=== PATIENT | male | born 1940 | race Hispanic/Latino ===

== ENCOUNTER 2017-12-31 10:21 | Inpatient (IN) | payer MEDICARE ==
--- NOTE | 2017-12-31 11:13 | ED PDOC ---
Arrival/HPI - General Chief Complaint: GI Problem Time Seen by Provider: 12/31/17 10:40 Historian: Patient - History of Present Illness Narrative History of Present Illness (Text): 12/31/17 11:09 A 77 year old male, whose past medical history includes hypertension, hyperlipidemia, peripheral vascular disease, liver cancer and back tumor, presents to the emergency department complaining of black stool today. Patient reports generalized weakness and lightheadedness. Patient notes lower back pain due to tumor, but denies any fever, chills, nausea, vomiting, abdominal pain, chest pain, shortness of breath or any other complaints. PMD: Dr. Karolina Evans Time/Duration: Other (today) Symptom Course: Unchanged Context: Home Past Medical History - Provider Review Nursing Documentation Reviewed: Yes - Infectious Disease Hx of Infectious Diseases: None - Cardiac Hx Pacemaker: No - Pulmonary Hx Respiratory Disorders: No - Neurological Hx Paralysis: No - HEENT Hx HEENT Disorder: Yes Hx Cataracts: Yes (r eye sx, sched left eye for next month) Other/Comment: wears eyeglasses for reading - Renal Hx Renal Disorder: No - Endocrine/Metabolic Hx Diabetes Mellitus Type 2: Yes - Hematological/Oncological Hx Blood Transfusions: No Hx Blood Transfusion Reaction: No - Integumentary Hx Dermatological Disorder: No Other/Comment: ca of liver - Musculoskeletal/Rheumatological Hx Musculoskeletal Disorders: No - Gastrointestinal Hx Gastrointestinal Disorders: No Other/Comment: Liver CA - Genitourinary/Gynecological Hx Genitourinary Disorders: No - Psychiatric Hx Emotional Abuse: No Hx Physical Abuse: No Hx Substance Use: No - Surgical History Other/Comment: Liver lobectomy - Anesthesia Hx Anesthesia Reactions: No Hx Malignant Hyperthermia: No - Suicidal Assessment Feels Threatened In Home Enviroment: No Family/Social History - Physician Review Nursing Documentation Reviewed: Yes Family/Social History: No Known Family HX Smoking Status: Former Smoker Hx Alcohol Use: Yes (QUIT 1 YR AGO) Hx Substance Use: No Allergies/Home Meds Allergies/Adverse Reactions: Allergies amoxicillin Adverse Reaction (Verified 08/06/16 10:26) VOMITING Home Medications: Home Meds Medication Instructions Recorded Confirmed amLODIPine [Norvasc] 10 mg PO DAILY 08/27/15 12/31/17 Hydrochlorothiazide [HCTZ] 25 mg PO DAILY 09/22/15 12/31/17 Irbesartan [Avapro] 300 mg PO DAILY 09/22/15 12/31/17 Alprazolam [Xanax] 0.5 mg PO HS 08/01/16 12/31/17 Aspirin [Aspirin Chewable] 81 mg PO DAILY 08/01/16 12/31/17 Folic Acid 1 mg PO DAILY 08/01/16 12/31/17 Glimepiride [amaRYL] 2 mg PO BID 08/01/16 12/31/17 Metoprolol Tartrate [Lopressor] 50 mg PO BID 08/01/16 12/31/17 Review of Systems - Physician Review All systems were reviewed & negative as marked: Yes - Review of Systems Constitutional: absent: Fevers, Night Sweats Respiratory: absent: SOB Cardiovascular: absent: Chest Pain Gastrointestinal: Hematochezia (black stool). absent: Abdominal Pain, Nausea, Vomiting Musculoskeletal: Back Pain (due to tumor) Physical Exam Vital Signs Reviewed: Yes Vital Signs Temp Pulse Resp BP Pulse Ox 12/31/17 14:55 98 F 72 18 152/92 H 12/31/17 14:38 98 F 76 18 153/61 H 12/31/17 12:30 75 18 151/72 H 97 12/31/17 11:20 72 16 148/83 98 12/31/17 10:40 98 F 72 18 141/83 99 Temperature: Afebrile Blood Pressure: Normal Pulse: Regular Respiratory Rate: Normal Appearance: Positive for: Well-Appearing, Non-Toxic, Comfortable Pain Distress: None Mental Status: Positive for: Alert and Oriented X 3 - Systems Exam Head: Present: Atraumatic, Normocephalic Pupils: Present: PERRL Extroacular Muscles: Present: EOMI Conjunctiva: Present: Other (Pale) Mouth: Present: Moist Mucous Membranes Neck: Present: Normal Range of Motion Respiratory/Chest: Present: Clear to Auscultation, Good Air Exchange. No: Respiratory Distress, Accessory Muscle Use Cardiovascular: Present: Regular Rate and Rhythm, Normal S1, S2. No: Murmurs Abdomen: No: Tenderness, Distention, Peritoneal Signs Rectal: Present: Occult Blood (guaiac ), Gross Blood, Normal Rectal Tone. No: Rectal Tenderness, Hemorrhoids, Fissures, Nodule/Mass/Lesions Upper Extremity: Present: Normal Inspection, NORMAL PULSES. No: Cyanosis, Edema Lower Extremity: Present: Normal Inspection, NORMAL PULSES. No: Edema, CALF TENDERNESS Neurological: Present: GCS=15, CN II-XII Intact, Speech Normal Skin: Present: Warm, Dry, Pale. No: Rashes Psychiatric: Present: Alert, Oriented x 3, Normal Insight, Normal Concentration Medical Decision Making ED Course and Treatment: 12/31/17 11:09 Impression: A 77 year old male with bloody stool Differential Diagnosis included but are not limited to: GI bleed Plan: -- Chest xray -- EKG -- Labs -- Protonix -- Reassess and disposition Progress Notes: Report Date : 12/31/2017 11:55:28 Procedure: Chest xray Dictator : Tae Gutierrez MD IMPRESSION: No active disease. EKG shows NSR at [address]-segment elevations, normal intervals, normal axis. Interpreted by me. 12/31/17 12:17 Hgb low at 6.3. Type and Crossmatched. 2 units of PRBCs ordered. Consent obtained by me with Resident Roly Clarke. Vitals stable throughput ED stay. Case was discussed with Dr. Ornelas who will admit to Telemetry for active GI Bleed. She requested consult with Dr. Noel/Alfredo. Dr. Noel had a previous consult so consult order was placed. Case was discussed with GI Fellow who came to evaluate patient. - Critical Care Critical Care Minutes: 45 minutes - Lab Interpretations Lab Results: 12/31/17 11:40 12/31/17 11:40 Lab Results 12/31/17 11:40: Blood Type B NEGATIVE, Antibody Screen Negative, Crossmatch See Detail, BBK History Checked Patient has bt 12/31/17 11:40: Sodium 143, Potassium 4.8, Chloride 106, Carbon Dioxide 21, Anion Gap 20, BUN 55 H, Creatinine 3.3 H, Est GFR ( Amer) 22, Est GFR ( Non-Af Amer) 18, Random Glucose 94, Calcium 9.4, Total Bilirubin 0.3, AST 20, ALT 25, Alkaline Phosphatase 66, Lactate Dehydrogenase 401, Total Creatine Kinase 58, Troponin I 0.02 D, Total Protein 6.7, Albumin 4.0, Globulin 2.7, Albumin/Globulin Ratio 1.4, Amylase 83, Lipase 244 12/31/17 11:40: PT 13.4 H, INR 1.16 H, APTT 32.7 12/31/17 11:40: WBC 9.2, RBC 2.19 L, Hgb 6.3 L*, Hct 18.7 L*, MCV 85.4, MCH 28.8 , MCHC 33.7, RDW 16.5 H, Plt Count 116 L, MPV 12.2 H, Gran % 68.7 H, Lymph % ( Auto) 15.0 L, Hernando % (Auto) 13.5 H, Eos % (Auto) 2.5, Baso % (Auto) 0.3, Gran # 6.29, Lymph # (Auto) 1.4, Hernando # (Auto) 1.2 H, Eos # (Auto) 0.2, Baso # (Auto) 0.03 - RAD Interpretation Radiology Orders: 12/31/17 11:27 CHEST PORTABLE [RAD] Stat - Medication Orders Current Medication Orders: Ondansetron HCl (Zofran Inj) 4 mg IVP Q4H PRN PRN Reason: Nausea/Vomiting Discontinued Medications Pantoprazole Sodium (Protonix Inj) 80 mg IVP STAT STA Stop: 12/31/17 11:28 Last Admin: 12/31/17 11:51 Dose: 80 mg IVP Administration Document 12/31/17 11:51 LUTHER (Rec: 12/31/17 11:51 LUTHER [id number]) Charges for Administration # of IVP Administrations 1 - Scribe Statement The provider has reviewed the documentation as recorded by the Aditi Hendrix Provider Scribe Attestation: All medical record entries made by the Scribwilbert were at my direction and personally dictated by me. I have reviewed the chart and agree that the record accurately reflects my personal performance of the history, physical exam, medical decision making, and the department course for this patient. I have also personally directed, reviewed, and agree with the discharge instructions and disposition. Disposition/Present on Arrival - Present on Arrival Any Indicators Present on Arrival: No History of DVT/PE: No History of Uncontrolled Diabetes: No Urinary Catheter: No History of Decub. Ulcer: No History Surgical Site Infection Following: None - Disposition Have Diagnosis and Disposition been Completed?: Yes Diagnosis: GI bleed Disposition: HOSPITALIZED Disposition Time: 12:17 Patient Plan: Admission Condition: GUARDED
[2017-12-31 11:57] LABS: BASO # 0.03 K/mm3 (0.0-2.0); BASO % 0.3 % (0.0-3.0); EOS # 0.2 (0.0-0.7); EOS % 2.5 % (1.5-5.0); GRAN # 6.29 (1.4-6.5); GRAN % 68.7 % (50.0-68.0); LYMPH # 1.4 (1.2-3.4); MEAN CELL VOLUME 85.4 fl (80.0-105.0); MEAN CORPUSCULAR HEMOGLOBIN 28.8 pg (25.0-35.0); MEAN CORPUSCULAR HGB CONC 33.7 g/dl (31.0-37.0); MEAN PLATELET VOLUME 12.2 fl (7.0-11.0); MONO # 1.2 (0.1-0.6); MONO % 13.5 % (1.0-6.0); RBC 2.19 10^6/uL (3.5-6.1); RED CELL DISTRIBUTION WIDTH 16.5 % (11.5-14.5); WHITE BLOOD COUNT 9.2 10^3/ul (4.5-11.0)
--- NOTE | 2017-12-31 11:57 | RAD ---
HISTORY: gi bleed COMPARISON: 08/27/2015 FINDINGS: LUNGS: No active pulmonary disease. PLEURA: No significant pleural effusion identified, no pneumothorax apparent. CARDIOVASCULAR: Normal. OSSEOUS STRUCTURES: No significant abnormalities. VISUALIZED UPPER ABDOMEN: Normal. OTHER FINDINGS: None. IMPRESSION: No active disease.
[2017-12-31 12:03] LABS: HEMOGLOBIN 6.3 g/dL (14.0-18.0)
[2017-12-31 12:06] LABS: ALB/GLOB RATIO 1.4 (1.1-1.8); CALCIUM 9.4 mg/dL (8.4-10.5)
[2017-12-31 12:15] LABS: INR 1.16 (0.93-1.08); PARTIAL THROMBOPLASTIN TIME 32.7 Seconds (25.1-36.5); PROTHROMBIN TIME 13.4 SECONDS (9.4-12.5)
[2017-12-31 12:18] LABS: TROPONIN I 0.02 ng/mL
--- NOTE | 2017-12-31 15:59 | CP.PCM.CON ---
<Ariana Evans - Last Filed: 12/31/17 16:07> History of Present Illness - History of Present Illness History of Present Illness: PGY4 Initial GI Consult Cristopher Muñoz is a 77M w/ hx of Hepatocellular carcinoma?,HTN, HL, and DM who presents to the ER with complaints of black stool today. Patient reports generalized weakness and lightheadedness. Pt states that he first noticed the black stool 3 days ago. He denies any epigastric pain, BRBPR, hematemesis or [id number] emesis. In the ED, he was found to have a hgb of 6.3 with normal vitals. He denies any nausea, vomiting, diarrhea, NSAID use. He has been off of plavix for 3 years. he had a colonoscopy and EGD in 2014 which revealed poor prep and no other finding indicative for his presenting melana (at that time). In 2013, he reports a colonoscopy by Dr. Lrasen which revealed multiple polyps. He had another repeat colonoscopy last year, by Dr. Larsen and as per pt was negative. PMhx: HCC?, HTN, HL, DM, spinal tumor? PSHx: Social history: smokes 1/4 PPD cigarettes, social ETOH use Family history: non-contributory ROS: 12 point ROS conducted, neg other than above Past Patient History - Infectious Disease Hx of Infectious Diseases: None - Past Medical History & Family History Past Medical History?: Yes - Past Social History Smoking Status: Former Smoker - CARDIAC Hx Pacemaker: No - PULMONARY Hx Respiratory Disorders: No - NEUROLOGICAL Hx Paralysis: No - HEENT Hx HEENT Problems: Yes Hx Cataracts: Yes (r eye sx, sched left eye for next month) Other/Comment: wears eyeglasses for reading - RENAL Hx Chronic Kidney Disease: No - ENDOCRINE/METABOLIC Hx Diabetes Mellitus Type 2: Yes - HEMATOLOGICAL/ONCOLOGICAL Hx Blood Transfusions: No Hx Blood Transfusion Reaction: No - INTEGUMENTARY Hx Dermatological Problems: No Other/Comment: ca of liver - MUSCULOSKELETAL/RHEUMATOLOGICAL Hx Musculoskeletal Disorders: No - GASTROINTESTINAL Hx Gastrointestinal Disorders: No Other/Comment: Liver CA - GENITOURINARY/GYNECOLOGICAL Hx Genitourinary Disorders: No - PSYCHIATRIC Hx Emotional Abuse: No Hx Physical Abuse: No Hx Substance Use: No - SURGICAL HISTORY Other/Comment: Liver lobectomy - ANESTHESIA Hx Anesthesia Reactions: No Hx Malignant Hyperthermia: No Meds Allergies/Adverse Reactions: Allergies Allergy/AdvReac Type Severity Reaction Status Date / Time amoxicillin AdvReac VOMITING Verified 12/31/17 17:29 - Medications Medications: Current Medications Ondansetron HCl (Zofran Inj) 4 mg IVP Q4H PRN PRN Reason: Nausea/Vomiting Physical Exam - Constitutional Appears: Well, No Acute Distress - Head Exam Head Exam: ATRAUMATIC, NORMOCEPHALIC - Eye Exam Eye Exam: Normal appearance - ENT Exam ENT Exam: Mucous Membranes Moist, Normal Exam - Neck Exam Neck exam: Positive for: Normal Inspection - Respiratory Exam Respiratory Exam: Clear to Auscultation Bilateral, NORMAL BREATHING PATTERN. absent: Rales, Rhonchi, Wheezes, Respiratory Distress - Cardiovascular Exam Cardiovascular Exam: REGULAR RHYTHM, +S1, +S2 - GI/Abdominal Exam GI & Abdominal Exam: Normal Bowel Sounds, Soft. absent: Diminished Bowel Sounds , Distended, Guarding, Organomegaly, Pulsatile Mass, Rebound, Rigid - Rectal Exam Rectal Exam: Black Stool. absent: Bloody Stool, Fecal Impaction - Extremities Exam Extremities exam: Negative for: joint swelling, pedal edema - Neurological Exam Neurological exam: Alert, Oriented x3 - Psychiatric Exam Psychiatric exam: Normal Affect, Normal Mood - Skin Skin Exam: Dry, Intact, Normal Color, Warm Results - Vital Signs Recent Vital Signs: Last Vital Signs Temp 98.2 F 12/31/17 15:14 Pulse 78 12/31/17 15:14 Resp 18 12/31/17 15:14 BP 164/68 H 12/31/17 15:14 Pulse Ox 98 12/31/17 15:14 - Labs Result Diagrams: 12/31/17 11:40 12/31/17 11:40 <Blake Fuentes - Last Filed: 12/31/17 21:26> Meds - Medications Medications: Current Medications Ondansetron HCl (Zofran Inj) 4 mg IVP Q4H PRN PRN Reason: Nausea/Vomiting Pantoprazole Sodium (Protonix Inj) 40 mg IVP Q12 [facility] Results - Vital Signs Recent Vital Signs: Last Vital Signs Temp 98.2 F 12/31/17 18:00 Pulse 73 12/31/17 18:00 Resp 16 12/31/17 18:00 BP 157/71 H 12/31/17 18:00 Pulse Ox 98 12/31/17 15:14 - Labs Result Diagrams: 12/31/17 11:40 12/31/17 11:40 Assessment & Plan - Assessment and Plan (Free Text) Assessment: 77 year old male with h/o HCC s/p resection, 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 1. Upper GI bleeding Plan: -ddx includes PUD, varices, avm, malignancy -recommend IV PPI -denies h/o cirrhosis -request outside records -clear liquids today -npo after mn for egd tomorrow -nephrology consult - Date & Time Date: 12/31/17 Time: 21:26
[2017-12-31 22:53] VITALS: BMI 34.8
[2017-12-31] MEDS ORDERED: Pneumococcal 23-Valent Vaccine IM ONE (22:53)
[2018-01-01 01:17] LABS: URINE BILIRUBIN NEGATIVE (NEGATIVE); URINE BLOOD TRACE-INTACT (NEGATIVE); URINE GLUCOSE (UA) NEGATIVE (NEGATIVE); URINE LEUKOCYTE ESTERASE NEGATIVE Leu/uL (NEGATIVE); URINE PROTEIN 30 mg/dL (<30 mg/dL); URINE UROBILINOGEN 0.2 E.U./dL (<1 E.U./dL)
[2018-01-01 01:20] LABS: URINE APPEARANCE SL CLOUDY (CLEAR); URINE COLOR YELLOW (YELLOW)
[2018-01-01 01:30] LABS: CREATININE,RANDOM URINE 33 mg/dL; TOTAL PROTEIN,RANDOM URINE 156 mg/L
[2018-01-01 01:52] LABS: URINE RBC 0 - 2 /hpf (0-2); URINE WBC NEGATIVE /hpf (0-6)
[2018-01-01 01:53] LABS: URINE BACTERIA MOD (NEG)
[2018-01-01] MEDS: Insulin Reg-LOW-Coverage SC SCH ×2 (08:17→11:36)
[2018-01-01 08:25] LABS: MEAN CELL VOLUME 85.6 fl (80.0-105.0); MEAN CORPUSCULAR HEMOGLOBIN 28.8 pg (25.0-35.0); MEAN CORPUSCULAR HGB CONC 33.6 g/dl (31.0-37.0); MEAN PLATELET VOLUME 10.9 fl (7.0-11.0); RBC 2.78 10^6/uL (3.5-6.1); RED CELL DISTRIBUTION WIDTH 15.4 % (11.5-14.5); WHITE BLOOD COUNT 8.8 10^3/ul (4.5-11.0)
[2018-01-01 08:31] LABS: ALB/GLOB RATIO 1.5 (1.1-1.8); ALT/SGPT 25 U/L (7-56); AST/SGOT 21 U/L (17-59); BILIRUBIN,DIRECT 0.3 mg/dL (0.0-0.4); BLOOD UREA NITROGEN 50 mg/dL (7-21); CALCIUM 9.7 mg/dL (8.4-10.5); GFR AFRICAN-AMERICAN 22; GFR NON-AFRICAN AMERICAN 18; HDL CHOLESTEROL 26 mg/dL (29-60); IRON 64 ug/dL (45-180)
[2018-01-01 08:41] LABS: % IRON SATURATION 18 % (20-55); TOTAL IRON BINDING CAPACITY 347 ug/dL (261-462)
[2018-01-01 08:47] LABS: LDL CHOLESTEROL < 30 mg/dL (0-129)
--- NOTE | 2018-01-01 09:44 | HP ---
CHIEF COMPLAINT: Lower GI bleeding. HISTORY OF PRESENT ILLNESS: Mr. Cristopher Muñoz is a 77-year-old male with a past medical history who had hypertension, hypercholesterolemia, peripheral vascular disease, liver cancer and back tumor, came to the Emergency Department complaining of black stools with back pain and tumor. He also denied any fever, chills. No nausea or vomiting. No abdominal pain. No chest pain. No shortness of breath. PAST MEDICAL HISTORY: As above, right eye surgery, diabetes mellitus, CA of the liver, liver lobectomy. FAMILY HISTORY: Father and mother, noncontributory. No known family history. HABITS: Former smoker. Alcohol, yes. Substance abuse, no. ALLERGIES: PATIENT IS ALLERGIC WITH AMOXICILLIN. HOME MEDICATIONS: Amlodipine, HCTZ, Avapro, Xanax, aspirin, folic acid, glimepiride, metoprolol. REVIEW OF SYSTEMS: Patient is seen and examined at the bedside. was standing on the bedside also. No nausea, vomiting or diarrhea. No hematuria or hematochezia. No swelling of the legs. No chest pain. No palpitation. No headache or dizziness. PHYSICAL EXAMINATION: VITAL SIGNS: Temperature 98, pulse 76, respiratory rate 18, blood pressure 152/61. HEENT: Head: Normocephalic, atraumatic. Eyes: PERRLA. Nose: Patent. NECK: Supple. No carotid bruit. No thyromegaly. CHEST: Bilaterally symmetrical. HEART: S1 and S2 positive. LUNGS: Clear to auscultation. ABDOMEN: Soft. Bowel sounds present. No organomegaly. EXTREMITIES: No edema. No cyanosis. NEUROLOGIC: Patient is awake, alert. Moving all 4 extremities. No focal deficits. LABORATORY DATA: White blood cell 9.2, hemoglobin 6.3, hematocrit 18.7, platelets 116. Sodium 143, potassium 4.8, BUN 55, creatinine is 3.3. ASSESSMENT AND PLAN: Mr. Cristopher Muñoz is a 77-year-old male with severe anemia, status post two units of packed red blood cells, thrombocytopenia, renal insufficiency, admitted for lower gastrointestinal bleeding, Zofran given, pantoprazole given. Gastroenterology consult called. This patient . The patient has history of hypertension, hypercholesterolemia, peripheral vascular disease, liver cancer, back tumor surgery, came complaining of black stools, severe anemia. Hemoglobin is 6.3. Patient had symptomatic anemia, type and crossed match two units of packed red blood cells and transfuse. We will do Hematology workup of monitoring H and H. Repeat labs. We will follow up. Nai Ornelas MD
--- NOTE | 2018-01-01 10:29 | CARD ---
APPROVED REPORT EKG Measurement Heart [id number] <Conclusion> Normal sinus rhythm Normal ECG
[2018-01-01 12:39] VITALS: TEMP 98.3
[2018-01-01] MEDS ORDERED: Midazolam 2 MG/2 ML VIAL ONE (13:01)
[2018-01-01] MEDS ORDERED: Propofol 10 mg/ml Inj (20 ML) ONE (13:01)
[2018-01-01] MEDS ORDERED: Etomidate 20 mg/10ml Inj IV ONE (13:02)
[2018-01-01 13:05] LABS: FOLATE > 20.0 ng/mL
[2018-01-01] MEDS ORDERED: Sodium Chloride 0.9% 1,000 ML IV SCH (13:30)
[2018-01-01 13:32] VITALS: RESP 18; O2SAT 99
[2018-01-01 13:55] VITALS: BP 146/60; PULSE 64
--- NOTE | 2018-01-01 16:24 | CP.PCM.PN ---
Subjective - Date & Time of Evaluation Date of Evaluation: 01/01/18 Time of Evaluation: 16:23 - Subjective Subjective: PGY-[address] Fuentes and Dr Ornelas CC: AMA S: Cristopher Muñoz is a 77M w/ hx of Hepatocellular carcinoma?,HTN, HL, and DM who presents to the ER with complaints of black stool today. Patient reports generalized weakness and lightheadedness. Pt states that he first noticed the black stool 3 days ago. He was found to have a hgb of 6.3 with normal vitals and received 2u pRBC. He had endoscopy today which revealed gastritis. He was recommended to have colonoscopy for further eval source of bleed. Pt wants to pursue further treatment at [facility] because it will be free to him O: VS stable AAOx3 Ambulating with stable gait A/P: AMA - He said he will f/u at [facility] and own PMD, Dr. John Evans at [address] [place] [address] - Gave pt his endoscopy report and recommendations from GI team. - GI recommended to give him protonix. I wrote a scipt of protonix to him. - Pt was told of and understand the risk of AMA and still wants to leave because [place] can provide same services for free - Return to ED if Sx worsens - Notified GI team and Dr. Ornelas Objective - Vital Signs/Intake and Output Vital Signs (last 24 hours): Temp Pulse Resp BP Pulse Ox 98.3 F 64 18 146/60 99 01/01/18 13:45 01/01/18 13:45 01/01/18 13:45 01/01/18 13:45 01/01/18 13:45 Intake and Output: 01/01/18 01/01/18 06:59 18:59 Intake Total 240 Output Total 1025 Balance -785 - Medications Medications: Current Medications Alprazolam (Xanax) 0.5 mg PO HS [facility] PRN Reason: Protocol Amlodipine Besylate (Norvasc) 10 mg PO DAILY [facility] Last Admin: 01/01/18 10:43 Dose: 10 mg Clonidine HCl (Catapres) 0.1 mg PO BID [facility] Last Admin: 01/01/18 15:39 Dose: Not Given Folic Acid (Folic Acid) 1 mg PO DAILY [facility] Last Admin: 01/01/18 10:44 Dose: 1 mg Glimepiride (Amaryl) 2 mg PO BID [facility] Last Admin: 01/01/18 10:44 Dose: Not Given Hydralazine HCl (Apresoline) 10 mg IVP Q6 PRN PRN Reason: for SBP>160 Hydrochlorothiazide (Hydrodiuril) 25 mg PO DAILY [facility] Last Admin: 01/01/18 15:39 Dose: Not Given Sodium Chloride (Sodium Chloride 0.9%) 1,000 mls @ 100 mls/hr IV .Q10H [facility] Last Admin: 01/01/18 16:21 Dose: Not Given Insulin Human Regular (Humulin R Low) 0 units SC ACHS [facility] PRN Reason: Protocol Last Admin: 01/01/18 11:36 Dose: Not Given Metoprolol Tartrate (Lopressor) 50 mg PO BID [facility] Last Admin: 01/01/18 10:42 Dose: 50 mg Ondansetron HCl (Zofran Inj) 4 mg IVP Q4H PRN PRN Reason: Nausea/Vomiting Pantoprazole Sodium (Protonix Inj) 40 mg IVP Q12 [facility] Last Admin: 01/01/18 10:43 Dose: 40 mg - Labs Labs: 01/01/18 06:00 01/01/18 08:00 PT 13.4 SECONDS (9.4-12.5) H 12/31/17 11:40 INR 1.16 (0.93-1.08) H 12/31/17 11:40 APTT 32.7 Seconds (25.1-36.5) 12/31/17 11:40
--- NOTE | 2018-01-01 18:09 | CON ---
DATE: 01/01/2018 REASON FOR CONSULTATION: Cardiac evaluation, admitted with GI bleed, preoperative evaluation and risk stratification for possible colonoscopy. BRIEF CLINICAL HISTORY: This is a 77-year-old male with past medical history significant for hypertension; peripheral vascular disease; liver cancer, status post radiation in [place], possible recurrence of the tumor in the bone, who came in with GI bleed, scheduled for colonoscopy and cardiology consult was called for preop evaluation and risk stratification. The patient denies any chest pain, shortness of breath, or any palpitation. is at the bedside. PAST MEDICAL HISTORY: Significant for diabetes and CA liver. PAST SURGICAL HISTORY: History significant for lobectomy, eye surgery, radiation to the liver. FAMILY HISTORY: Noncontributory. SOCIAL HISTORY: Denies any smoking. Denies any history of alcohol abuse. ALLERGIES: ALLERGY TO PENICILLIN AND AMOXICILLIN. CURRENT MEDICATIONS: The patient at home was taking amlodipine, hydrochlorothiazide, Avapro, Xanax, aspirin, folic acid, glimepiride, and metoprolol. REVIEW OF SYSTEMS: As per HPI. PHYSICAL EXAMINATION VITAL SIGNS: Temperature afebrile, heart rate 96, blood pressure 172/64. HEENT: PERRLA. Extraocular muscles intact. NECK: Supple. No carotid bruit. No thyromegaly. CHEST: Clear to auscultation. HEART: S1 and S2 regular. ABDOMEN: Soft. EXTREMITIES: Clubbing, cyanosis negative. LABORATORY DATA: Blood workup as follows: WBC 8.8, hemoglobin 8, hematocrit 23.8, platelet count 117. Chemistry shows sodium 140, potassium 4.2, chloride 109, bicarbonate 23, anion gap of 19, BUN 50, creatinine 3.3. 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 No evidence of angina. No evidence of acute myocardial infarction. No evidence of arrhythmia. The patient is cleared to go for colonoscopy from Cardiology point of view. We will follow closely with you. We will get echo to assess left ventricular function. Thank you, Dr. Ornelas, for providing us the opportunity in taking care of the patient, Cristopher Wanda. Feng Butterfield MD
--- NOTE | 2018-01-01 21:03 | CON ---
DATE: 01/01/2018 REFERRING PHYSICIAN: Nai Ornelas MD. REASON FOR CONSULTATION: Acute kidney injury. CHIEF COMPLAINT AND HISTORY OF PRESENT ILLNESS: This is a 77-year-old male who has come into the hospital with acute anemia secondary to blood loss. The patient has been noticing black stools. He was complaining of lightheadedness and dizziness with weakness. The patient says that he noticed these changes in his stool over the last 3 days. He does not have a known history of kidney disease. His initial creatinine when he came into the hospital was 3.3. The patient was not having any abdominal pain. He had no vomiting or emesis. The patient had been on Plavix, but has been off for many years now. He did have endoscopy done in 2014 as well as a colonoscopy done in 2013. The patient denies NSAID use. He does take medications for his hypertension and diabetes. He has no fevers or chills. No nausea. No vomiting. No dysuria or frequency. No headaches. REVIEW OF SYSTEMS: All other review of symptoms are within normal limits except what was mentioned. ALLERGIES: AMOXICILLIN. HOME MEDICATIONS: He is on irbesartan, glimepiride, aspirin, folic acid, hydrochlorothiazide, amlodipine, Xanax, metoprolol. PAST MEDICAL HISTORY: 1. Hypertension. 2. Dyslipidemia. 3. Diabetes type 2. 4. Chronic back pain. 5. Liver cancer. 6. Nasal bone fracture. 7. Colon polyps. PAST SURGICAL HISTORY: Liver lobectomy. SOCIAL HISTORY: He smokes about a quarter of a pack per day. Patient drinks socially. FAMILY HISTORY: Noncontributory. PHYSICAL EXAMINATION: VITAL SIGNS: Temperature is 98.8, pulse of 91, blood pressure is 170/70, respiration is 19, O2 saturation 98%. Height is 5 feet 11, weight is 250 pounds. BMI is 31.9. GENERAL: The patient lying in bed, uncomfortable, and in no acute distress. HEENT: Atraumatic and normocephalic. Anicteric sclerae. Moist mucosa. [place] conjunctivae. No oral lesions. NECK: No JVD, anterior and posterior adenopathy, thyromegaly, or bruits. CARDIOVASCULAR: S1 and S2 regular. No murmur, rubs, or gallop. LUNGS: Clear to auscultation bilaterally. No wheezes, rales, or rhonchi. ABDOMEN: Bowel sounds are positive. Soft, nontender and nondistended. No hepatosplenomegaly. No rebound and no guarding EXTREMITIES: No cyanosis, clubbing, or edema. NEUROLOGIC: No facial asymmetry. Tongue is midline. No uvula deviation. Power is 5/5 upper extremity and lower extremity. Sensation intact in upper extremity and lower extremity. PSYCHIATRIC: He is awake, alert and oriented x3. No anxiety or depression. He has normal affect. GENITOURINARY: No CVA tenderness. VASCULAR: 2+ pulses in the carotid pulses and pedal pulses. SKIN: No erythema or nodules SPINE: Shows normal curvature. LABORATORY DATA: Hemoglobin 6.3, repeat is 8, retic count is 1.65, INR is 1.1. He has a chemistry that shows creatinine of 3.3, repeat creatinine is 3.3. Patient has iron saturation of 18%. He has a TSH of 3. Chest x-ray done shows no active disease. EKG done shows sinus rhythm at 66, no ST-T changes. ASSESSMENT: 1. Acute anemia. 2. Iron deficiency. 3. Acute kidney injury with a baseline creatinine of 0.7. 4. Diabetes type 2. 5. Hypertension. 6. Dyslipidemia. 7. Chronic back pain. 8. Proteinuria 4.7 g PLAN: The patient is currently admitted to the hospital. He had 2 units of transfusion. The patient's hemoglobin is better. He has been seen by GI for evaluation. The patient has an increase in creatinine. Patient has a long differential. I did urine checks to check for proteinuria. The patient has 4.7 g of protein. The patient has anemia, an elevated creatinine with back pain. I have concerns about ruling the patient out for myeloma. I will add an SPEP and UPEP to the patient's blood work. We will also order a CT of the patient's back and also order serology to rule out primary versus secondary causes of proteinuria including but not limited to glomerulonephritis. He has an elevated blood pressure. We will place him on clonidine for better blood pressure control. I have discontinued his losartan as this may worsen the patient's creatinine. He will also need a renal ultrasound to evaluate his kidney function. Fernie Wei MD [facility] # [id number]
[2018-01-02 11:13] LABS: FREE KAPPA SERUM 10.2 mg/L (3.3-19.4)
[2018-01-02 18:04] LABS: ALBUMIN (PEP) 3.2 g/dL (3.8-4.8); ALPHA-1-GLOBULIN (PEP) 0.5 g/dL (0.2-0.3)
--- NOTE | 2018-01-02 20:05 | CARD ---
APPROVED REPORT EXAM: Two-dimensional and M-mode echocardiogram with Doppler and color Doppler. INDICATION Pre-Op 2D DIMENSIONS Left Atrium (2D)4.0 (1.6-4.0cm)IVSd1.5 (0.7-1.1cm) LVDd4.8 (3.9-5.9cm)PWd1.1 (0.7-1.1cm) LVDs3.2 (2.5-4.0cm)FS (%) 34.4 % LVEF (%)63.5 (>50%) M-Mode DIMENSIONS Aortic Root2.70 (2.2-3.7cm)Aortic Cusp Exc.1.90 (1.5-2.0cm) Aortic Valve AoV Peak [id number]/[place] Peak GR.9mmHg Mitral Valve E/A ratio0.0 TDI E/Lateral E'0.0E/Medial E'0.0 Tricuspid Valve TR Peak [id number] [id number] Peak Gr.29mmHg [id number] LEFT VENTRICLE The left ventricle is normal size. There is mild concentric left ventricular hypertrophy. The left ventricular function is normal.EF-65% There is normal LV segmental wall motion. Transmitral Doppler flow pattern is Grade III-reversible restrictive diastolic dysfunction. No left ventricle thrombus noted on this study. There is no ventricular septal defect visualized. There is no left ventricular aneurysm. There is no mass noted in the left ventricle. RIGHT VENTRICLE The right ventricle is normal size. There is normal right ventricular wall thickness. The right ventricular systolic function is normal. ATRIA The left atrium is borderline dilated. The right atrium size is normal. The interatrial septum is intact with no evidence for an atrial septal defect. AORTIC VALVE The aortic valve is thickened but opens well. The aortic valve is mildly to moderately sclerotic. There is trace aortic regurgitation. There is no aortic valvular stenosis. There is no aortic valvular vegetation. MITRAL VALVE The mitral valve is thickened but opens well. Mitral regurgitation is mild. There is no mitral valve stenosis. There is no evidence of mitral valve prolapse. TRICUSPID VALVE The tricuspid valve leaflets are thickened , but open well. There is mild tricuspid regurgitation.[id number] mmof hg. There is no tricuspid valve stenosis. There is no tricuspid valve prolapse or vegetation. PULMONIC VALVE The pulmonic valve is not well visualized. There is trace pulmonic valvular regurgitation. There is no pulmonic valvular stenosis. GREAT VESSELS The aortic root is normal in size. The ascending aorta is normal in size. The pulmonary artery is normal. The IVC is normal in size and collapses >50% with inspiration. PERICARDIAL EFFUSION There is no pleural effusion. There is no pericardial effusion. <Conclusion> The left ventricle is normal size. There is mild concentric left ventricular hypertrophy. The left ventricular function is normal.EF-65% There is normal LV segmental wall motion. Mitral regurgitation is mild. There is mild tricuspid regurgitation.[id number] mmof hg. The IVC is normal in size and collapses >50% with inspiration. There is no pericardial effusion.
== END 2018-01-01 17:53 | disposition left against medical advice (07) | DRG 378 ==
LOC: ED 10:21 → ERH 12:17 → 2RSO 15:36
PROVIDERS: ADMIT Internal Medicine; ATTEND Internal Medicine
PROC: 30233N1 Transfusion of Nonautologous Red Blood Cells into Peripheral Vein, Percutaneous Approach (ICD-10-PCS; principal; 2017-12-31)
PROC: 0DB68ZX Excision of Stomach, Via Natural or Artificial Opening Endoscopic, Diagnostic (ICD-10-PCS; 2018-01-01)
DX: K92.2 Gastrointestinal hemorrhage, unspecified (principal); D62 Acute posthemorrhagic anemia; N17.9 Acute kidney failure, unspecified; C79.51 Secondary malignant neoplasm of bone; E11.51 Type 2 diabetes mellitus with diabetic peripheral angiopathy without gangrene; E78.00 Pure hypercholesterolemia, unspecified; K29.70 Gastritis, unspecified, without bleeding; D69.6 Thrombocytopenia, unspecified; G89.29 Other chronic pain; E11.22 Type 2 diabetes mellitus with diabetic chronic kidney disease; N18.9 Chronic kidney disease, unspecified; M54.5 Low back pain; R80.9 Proteinuria, unspecified; I12.9 Hypertensive chronic kidney disease with stage 1 through stage 4 chronic kidney disease, or unspecified chronic kidney disease; F17.210 Nicotine dependence, cigarettes, uncomplicated; Z85.05 Personal history of malignant neoplasm of liver; Z92.3 Personal history of irradiation; Z88.0 Allergy status to penicillin; Z86.010 Personal history of colon polyps

== ENCOUNTER 2018-01-08 03:56 | Inpatient (IN) | payer MEDICARE ==
[2018-01-08] MEDS ORDERED: Albuterol-Ipratrop 3 mg / 0.5 (3 ml) UD IH STA (04:01)
--- NOTE | 2018-01-08 04:06 | ED PDOC ---
Arrival/HPI - General Time Seen by Provider: 01/08/18 03:58 Historian: Spouse, EMS - History of Present Illness Narrative History of Present Illness (Text): 01/08/18 04:06 Cristopher Muñoz is a 77 year old male, whose past medical history includes diabetes, hypertension, hyperlipidemia, liver cancer s/p liver lobectomy, who presents to the Emergency department brought in by EMS for shortness of breath. states patient woke up this morning with progressively worsening shortness of breath while in bed. EMS was notified and patient placed on CPAP by EMS en route. notes patient recently left the hospital against medical advice following treatment for GI bleed and reports patient was scheduled for a colonoscopy today later in the morning. Patient denies any nausea, vomiting, diarrhea, urinary symptoms, back pain, neck pain, headache, dizziness, or any other complaints. Symptom Onset: Gradual Symptom Course: Unchanged Activities at Onset: Light Context: Home Past Medical History - Provider Review Nursing Documentation Reviewed: Yes - Infectious Disease Hx of Infectious Diseases: None - Cardiac Hx Pacemaker: No - Pulmonary Hx Respiratory Disorders: Yes (USED TO SMOKE CIGARETTES) - Neurological Hx Paralysis: No - HEENT Hx HEENT Disorder: Yes Hx Cataracts: Yes (r eye sx, sched left eye for next month) Other/Comment: wears eyeglasses for reading - Renal Hx Renal Disorder: No - Endocrine/Metabolic Hx Diabetes Mellitus Type 2: Yes - Hematological/Oncological Hx Blood Transfusions: No Hx Blood Transfusion Reaction: No - Integumentary Hx Dermatological Disorder: No - Musculoskeletal/Rheumatological Hx Musculoskeletal Disorders: Yes - Gastrointestinal Hx Gastrointestinal Disorders: Yes (CONSTIPATION) Other/Comment: Liver CA - Genitourinary/Gynecological Hx Genitourinary Disorders: No - Psychiatric Hx Substance Use: No - Surgical History Other/Comment: Liver lobectomy - Anesthesia Hx Anesthesia Reactions: No Hx Malignant Hyperthermia: No - Suicidal Assessment Feels Threatened In Home Enviroment: No Family/Social History - Physician Review Nursing Documentation Reviewed: Yes Family/Social History: Unknown Family HX Smoking Status: Former Smoker Hx Alcohol Use: Yes (RARE) Hx Substance Use: No Allergies/Home Meds Allergies/Adverse Reactions: Allergies amoxicillin Adverse Reaction (Verified 01/08/18 12:48) VOMITING Home Medications: Home Meds Medication Instructions Recorded Confirmed amLODIPine [Norvasc] 10 mg PO DAILY 08/27/15 01/08/18 Hydrochlorothiazide [HCTZ] 25 mg PO DAILY 09/22/15 01/08/18 Irbesartan [Avapro] 300 mg PO DAILY 09/22/15 01/08/18 Alprazolam [Xanax] 0.5 mg PO HS 08/01/16 01/08/18 Aspirin [Aspirin Chewable] 81 mg PO DAILY 08/01/16 01/08/18 Folic Acid 1 mg PO DAILY 08/01/16 01/08/18 Glimepiride [amaRYL] 2 mg PO BID 08/01/16 01/08/18 Metoprolol Tartrate [Lopressor] 50 mg PO BID 08/01/16 01/08/18 Review of Systems - Physician Review All systems were reviewed & negative as marked: Yes - Review of Systems Constitutional: Normal. absent: Fevers Eyes: Normal ENT: Normal Respiratory: SOB Gastrointestinal: absent: Diarrhea, Nausea, Vomiting Genitourinary Male: Normal. absent: Dysuria, Frequency, Hematuria, Urinary Output Changes Musculoskeletal: Normal. absent: Back Pain, Neck Pain Skin: Normal. absent: Rash Neurological: Normal. absent: Headache, Dizziness Endocrine: Normal Hemo/Lymphatic: Normal Psychiatric: Normal Physical Exam Vital Signs Reviewed: Yes Vital Signs Temp Pulse Pulse Resp BP Pulse Ox 01/08/18 12:38 71 17 147/63 99 01/08/18 10:30 78 18 149/65 97 01/08/18 09:57 152/70 H 01/08/18 08:39 77 17 143/68 97 01/08/18 06:30 85 18 135/69 95 01/08/18 05:58 81 18 140/71 96 01/08/18 05:57 140/71 01/08/18 05:27 98.9 F 78 77 17 147/63 01/08/18 04:47 98.9 F 80 20 135/62 100 01/08/18 04:15 22 98 01/08/18 03:57 128 H 22 98 Temperature: Afebrile Blood Pressure: Normal Pulse: Tachycardic Respiratory Rate: Normal Appearance: Positive for: Non-Toxic Pain Distress: None Mental Status: Positive for: Agitated - Systems Exam Head: Present: Atraumatic, Normocephalic Pupils: Present: PERRL Extroacular Muscles: Present: EOMI Conjunctiva: Present: Normal Mouth: Present: Moist Mucous Membranes Neck: Present: Normal Range of Motion Respiratory/Chest: Present: Rhonchi (Rhonchi bilaterally). No: Respiratory Distress, Accessory Muscle Use Cardiovascular: Present: Regular Rate and Rhythm, Normal S1, S2. No: Murmurs Abdomen: No: Tenderness, Distention, Peritoneal Signs Back: Present: Normal Inspection Upper Extremity: Present: Normal Inspection, Normal ROM, NORMAL PULSES, Neurovascularly Intact. No: Cyanosis, Edema Lower Extremity: Present: Normal Inspection, NORMAL PULSES, Normal ROM, Neurovascularly Intact. No: Edema, Cyanosis Neurological: Present: GCS=15, CN II-XII Intact, Speech Normal, Other ( Extremely agitated, moving all extremeties) Skin: Present: Warm, Dry, Normal Color. No: Rashes Psychiatric: Present: Alert, Oriented x 3, Anxious Medical Decision Making ED Course and Treatment: 01/08/18 04:06 Impression: 77 year old male complaining of progressively worsening shortness of breath tonight prior to arrival Plan: -- EKG -- Chest X-ray -- Labs, ABG, VBG, BNP, cardiac enzymes, D-dimer -- Reassess and disposition Prior Visits: Notes and results from previous visits were reviewed. On 12/31/2017, pt was seen in the Emergency department for black stool, generalized weakness, and light-headedness. Pt was admitted to the hospital for further evaluation and left against medical advice. Progress Notes: On arrival to Emergency department, noted to be very agitated/anxious. Pt placed on non-rebreather, given breathing treatments, and Ativan with relief. Reviewed EKG, NSR at [address]-segment elevations or depressions, no T-wave inversions, normal intervals. 01/08/18 05:11 Chest X-ray reviewed, shows some increased pulmonary vascular markings/lower lobe infiltrates 01/08/18 06:07 Labs noted. D-dimer: 416. VQ scan ordered. 01/08/18 06:[address] Ornelas, who is aware and agrees with plan. Accepts pt in to her service. Requests Dr. Butterfield, Dr. Connell, and Dr. Longoria. 01/08/18 07:[address] Glover, pending VQ scan. Pt admitted preliminarily, pt will remain in ER pending results of VQ scan. Consults ordered. - Lab Interpretations Lab Results: 01/08/18 04:05 01/08/18 04:05 Lab Results 01/08/18 05:40: Urine Color Straw, Urine Appearance Clear, Urine pH 6.0, Ur Specific [place] 1.020, Urine Protein 100 H, Urine Glucose (UA) Negative, Urine Ketones Negative, Urine Blood Trace-intact H, Urine Nitrate Negative, Urine Bilirubin Negative, Urine Urobilinogen 0.2, Ur Leukocyte Esterase Trace H, Urine RBC 1 - 3, Urine WBC 1 - 3, Ur Epithelial Cells 1 - 3, Urine Bacteria Rare 01/08/18 04:30: Vitamin B12 418, Folate > 20.0 01/08/18 04:20: pCO2 34 L, pO2 235.0 H, HCO3 18.8 L, ABG pH 7.35, ABG Total CO2 19.8 L, ABG O2 Saturation 97.4, ABG O2 Content 10.6 L, ABG Base Excess -6.2 L, ABG Hemoglobin 7.3 L, ABG Carboxyhemoglobin 0 L, POC ABG HHb (Measured) 2.6, ABG Methemoglobin 0.0, ABG O2 Capacity 10.9 L, Hgb O2 Saturation 97.4, FiO2 100.0 01/08/18 04:05: pO2 144 H, VBG pH 7.28 L, VBG pCO2 39.0 L, VBG HCO3 18.3 L, VBG Total CO2 19.5 L, VBG O2 Sat (Calc) 97.4 H, VBG Base Excess -7.9 L, VBG Potassium 4.4, Sodium 143.0, Chloride 115.0 H, Glucose 165 H, Lactate 2.7 H, FiO2 21.0, Venous Blood Potassium 4.4 01/08/18 04:05: WBC 14.2 H D, RBC 2.76 L, Hgb 7.9 L, Hct 24.1 L, MCV 87.3, MCH 28.6, MCHC 32.8, RDW 16.0 H, Plt Count 158, MPV 10.7 01/08/18 04:05: Sodium 145, Chloride 110 H, Potassium 4.4, Carbon Dioxide 18 L, Anion Gap 22 H, BUN 43 H, Creatinine 3.3 H, Est GFR ( Amer) 22, Est GFR ( Non-Af Amer) 18, Random Glucose 159 H, Calcium 9.6, Total Bilirubin 0.3, AST 27 , ALT 28, Alkaline Phosphatase 81, Lactate Dehydrogenase 505, Total Creatine Kinase 65, Troponin I 0.03 D, NT-Pro-B Natriuret Pep 2010 H, Total Protein 7.1 , Albumin 4.1, Globulin 3.0, Albumin/Globulin Ratio 1.4 01/08/18 04:05: PT 12.7 H, INR 1.10 H, APTT 35.6, D-Dimer, Quantitative 416 H I have reviewed the lab results: Yes - RAD Interpretation Radiology Orders: 01/08/18 04:07 CHEST PORTABLE [RAD] Stat 01/08/18 10:43 LUNG PERF & VENT SCAN [NM] Stat Wood Handler: ED Physician - EKG Interpretation Interpreted by ED Physician: Yes Type: 12 lead EKG - Medication Orders Current Medication Orders: Albuterol/Ipratropium (Duoneb 3 Mg/0.5 Mg (3 Ml) Ud) 3 ml IH [id number] [facility] Last Admin: 01/08/18 20:06 Dose: 3 ml Aspirin (Aspirin Chewable) 81 mg PO DAILY [facility] Last Admin: 01/08/18 09:57 Dose: 81 mg Folic Acid (Folic Acid) 1 mg PO DAILY [facility] Last Admin: 01/08/18 09:57 Dose: 1 mg Furosemide (Lasix) 40 mg IV DAILY [facility] Glimepiride (Amaryl) 2 mg PO BID [facility] Last Admin: 01/08/18 18:16 Dose: 2 mg Linezolid (Zyvox 600mg/300ml D5w) 600 mg in 300 mls @ 200 mls/hr IVPB Q12 [facility] PRN Reason: Protocol Stop: 01/15/18 12:46 Last Admin: 01/08/18 16:47 Dose: 200 mls/hr eMAR Start Stop Document 01/08/18 16:47 RODGER (Rec: 01/08/18 16:48 RODGER [id number]) Intravenous Solution Start Date 01/08/18 Start Time 16:47 End Date 01/08/18 End time 18:27 Total Infusion Time 100 Aztreonam (Azactam 1 Gm) 100 mls @ 100 mls/hr IVPB Q8 [facility] PRN Reason: Protocol Stop: 01/15/18 14:01 Last Admin: 01/08/18 15:27 Dose: 100 mls/hr eMAR Start Stop Document 01/08/18 15:27 RODGER (Rec: 01/08/18 15:27 RODGER [id number]) Intravenous Solution Start Date 01/08/18 Start Time 15:27 End Date 01/08/18 End time 16:27 Total Infusion Time 60 Azithromycin (Zithromax 500mg In Ns) 500 mg in 250 mls @ 167 mls/hr IVPB DAILY [facility] PRN Reason: Protocol Insulin Human Regular (Humulin R Low) 0 units SC ACHS [facility] PRN Reason: Protocol Last Admin: 01/08/18 18:12 Dose: Not Given Non-Admin Reason: Blood Sugar Parameter MAR Blood Glucose Document 01/08/18 18:12 RODGER (Rec: 01/08/18 18:12 RODGER [id number]) Blood Glucose Finger Stick Blood Glucose (70-120) 101 Losartan Potassium (Cozaar) 100 mg PO DAILY [facility] Last Admin: 01/08/18 09:57 Dose: 100 mg Pantoprazole Sodium (Protonix Ec Tab) 40 mg PO DAILY [facility] Last Admin: 01/08/18 09:57 Dose: 40 mg Pantoprazole Sodium (Protonix Ec Tab) 40 mg PO 0600 [facility] Discontinued Medications Albuterol/Ipratropium (Duoneb 3 Mg/0.5 Mg (3 Ml) Ud) 3 ml IH ONCE STA Stop: 01/08/18 04:02 Last Admin: 01/08/18 04:01 Dose: 3 ml Furosemide (Lasix) 40 mg IVP ONCE ONE Stop: 01/08/18 05:28 Last Admin: 01/08/18 05:57 Dose: 40 mg MAR Blood Pressure Document 01/08/18 05:57 AD (Rec: 01/08/18 05:57 AD [id number]) Blood Pressure Blood Pressure (100/60-150/90) 140/71 IVP Administration Document 01/08/18 05:57 AD (Rec: 01/08/18 05:57 AD [id number]) Charges for Administration # of IVP Administrations 1 Furosemide (Lasix) 40 mg IV ONCE ONE Stop: 01/08/18 10:01 Last Admin: 01/08/18 09:57 Dose: 40 mg eMAR Start Stop Document 01/08/18 09:57 LM (Rec: 01/08/18 09:58 [facility] [id number]) Intravenous Solution Start Date 01/08/18 Start Time 09:57 End Date 01/08/18 End time 10:00 Total Infusion Time 3 MAR Blood Pressure Document 01/08/18 09:57 [facility] (Rec: 01/08/18 09:58 [facility] [place] [id number]) Blood Pressure Blood Pressure (100/60-150/90) 152/70 Aztreonam (Azactam 1 Gm) 100 mls @ 100 mls/hr IVPB STAT STA PRN Reason: Protocol Stop: 01/08/18 06:28 Last Admin: 01/08/18 06:07 Dose: 100 mls/hr eMAR Start Stop Document 01/08/18 06:07 AD (Rec: 01/08/18 06:07 AD [id number]) Intravenous Solution Start Date 01/08/18 Start Time 06:07 Azithromycin (Zithromax 500mg In Ns) 500 mg in 250 mls @ 167 mls/hr IVPB STAT STA PRN Reason: Protocol Stop: 01/08/18 06:59 Last Admin: 01/08/18 07:33 Dose: 167 mls/hr eMAR Start Stop Document 01/08/18 07:33 [facility] [place] [facility] (Rec: 01/08/18 07:33 [facility] [id number]) Intravenous Solution Start Date 01/08/18 Start Time 07:33 End Date 01/08/18 End time 09:03 Total Infusion Time 90 Lorazepam (Ativan) 1 mg IVP ONCE ONE Stop: 01/08/18 04:01 Last Admin: 01/08/18 04:00 Dose: 1 mg IVP Administration Document 01/08/18 04:00 AD (Rec: 01/08/18 04:50 AD [id number]) Charges for Administration # of IVP Administrations 1 Pneumococcal Polyvalent Vaccine (Pneumovax 23 Vaccine) 0.5 ml IM .ONCE ONE Stop: 01/08/18 16:50 - Scribe Statement The provider has reviewed the documentation as recorded by the Aditi Whitman Provider Scribe Attestation: All medical record entries made by the Scribe were at my direction and personally dictated by me. I have reviewed the chart and agree that the record accurately reflects my personal performance of the history, physical exam, medical decision making, and the department course for this patient. I have also personally directed, reviewed, and agree with the discharge instructions and disposition. Disposition/Present on Arrival - Present on Arrival Any Indicators Present on Arrival: No History of DVT/PE: No History of Uncontrolled Diabetes: No Urinary Catheter: No History of Decub. Ulcer: No History Surgical Site Infection Following: None - Disposition Have Diagnosis and Disposition been Completed?: Yes Diagnosis: Pneumonia, CHF (congestive heart failure) Disposition: HOSPITALIZED Disposition Time: 06:15 Patient Plan: Admission Condition: STABLE
[2018-01-08 04:27] LABS: ARTERIAL BLOOD GAS HCO3 18.8 mmol/L (21-28); ARTERIAL BLOOD GAS HEMOGLOBIN 7.3 g/dL (11.7-17.4); ARTERIAL BLOOD GAS O2 CAPACITY 10.9 mL/dl (16-24); ARTERIAL BLOOD GAS O2 CONTENT 10.6 ML/dl (15-23); ARTERIAL BLOOD GAS O2 SAT 97.4 % (95-98); ARTERIAL BLOOD GAS PCO2 34 mm/Hg (35-45); ARTERIAL BLOOD GAS PH 7.35 (7.35-7.45); ARTERIAL BLOOD GAS TCO2 19.8 mmol.L (22-28)
[2018-01-08 04:28] LABS: HEMOGLOBIN 7.9 g/dL (14.0-18.0); MEAN CELL VOLUME 87.3 fl (80.0-105.0); MEAN CORPUSCULAR HEMOGLOBIN 28.6 pg (25.0-35.0); MEAN CORPUSCULAR HGB CONC 32.8 g/dl (31.0-37.0); MEAN PLATELET VOLUME 10.7 fl (7.0-11.0); RBC 2.76 10^6/uL (3.5-6.1); WHITE BLOOD COUNT 14.2 10^3/ul (4.5-11.0)
[2018-01-08 04:31] LABS: VENOUS BLOOD GAS BASE EXCESS -7.9 mmol/L (0.0-2.0); VENOUS BLOOD GAS PO2 144 mm/Hg (30-55); VENOUS BLOOD PH 7.28 (7.32-7.43)
[2018-01-08 04:44] LABS: ALB/GLOB RATIO 1.4 (1.1-1.8); ALBUMIN 4.1 g/dL (3.0-4.8); CALCIUM 9.6 mg/dL (8.4-10.5)
[2018-01-08 04:46] LABS: TROPONIN I 0.03 ng/mL
[2018-01-08 05:23] LABS: INR 1.1 (0.93-1.08); PARTIAL THROMBOPLASTIN TIME 35.6 Seconds (25.1-36.5); PROTHROMBIN TIME 12.7 SECONDS (9.4-12.5)
[2018-01-08] MEDS ORDERED: Aztreonam 1 Gm in NS 100mL 100 ML IVPB STA (05:29)
[2018-01-08] MEDS ORDERED: Azithromycin 500MG/NS 250ml 500 MG/250 ML BAG IVPB STA (05:30)
[2018-01-08 06:28] LABS: URINE APPEARANCE CLEAR (CLEAR); URINE BILIRUBIN NEGATIVE (NEGATIVE); URINE BLOOD TRACE-INTACT (NEGATIVE); URINE COLOR STRAW (YELLOW); URINE GLUCOSE (UA) NEGATIVE (NEGATIVE); URINE LEUKOCYTE ESTERASE TRACE Leu/uL (NEGATIVE); URINE PROTEIN 100 mg/dL (<30 mg/dL); URINE UROBILINOGEN 0.2 E.U./dL (<1 E.U./dL)
[2018-01-08 06:46] LABS: URINE BACTERIA RARE (NEG)
[2018-01-08 07:57] LABS: VENOUS BLOOD GAS BASE EXCESS -2.6 mmol/L (0.0-2.0); VENOUS BLOOD GAS PO2 154 mm/Hg (30-55); VENOUS BLOOD PH 7.39 (7.32-7.43)
--- NOTE | 2018-01-08 09:19 | RAD ---
HISTORY: Shortness of breath. COMPARISON: 12/31/2017 FINDINGS: LUNGS: New lower lobe infiltrates particularly right lower lobe. Overall appearance suggests infectious/inflammatory process. PLEURA: No significant pleural effusion identified, no pneumothorax apparent. CARDIOVASCULAR: No radiographic findings to suggest acute or significant cardiovascular disease. OSSEOUS STRUCTURES: No significant abnormalities. VISUALIZED UPPER ABDOMEN: Normal. OTHER FINDINGS: None. IMPRESSION: Bilateral lower lobe infiltrates (in particular right lower lobe) a new finding compared to the prior study.
[2018-01-08] MEDS: Pantoprazole 40 mg EC Tab PO SCH (09:57)
[2018-01-08 10:05] LABS: IRON 20 ug/dL (45-180)
[2018-01-08 10:15] LABS: % IRON SATURATION 6 % (20-55); TOTAL IRON BINDING CAPACITY 308 ug/dL (261-462)
[2018-01-08] MEDS: Insulin Reg-LOW-Coverage SC SCH ×2 (11:30→18:12)
--- NOTE | 2018-01-08 12:42 | NM ---
COMPARISON: January 08, 2018. Single-view chest TECHNIQUE: 40.2 mCi technetium 99-m DTPA aerosol. 5.9 mCI technetium 99-m MAA administered intravenously. FINDINGS: VENTILATION COMPONENT: Normal.Retention of radionuclide in the tracheobronchial tree and ingestion of radionuclide in the stomach, incidental findings PERFUSION COMPONENT: Heterogeneous distribution of radionuclide. No geographic, segmental, lobar abnormalities apparent on the present examination. IMPRESSION: Low probability ventilation perfusion scan for pulmonary embolism.
[2018-01-08] MEDS: Aztreonam 1 Gm in NS 100mL 100 ML IVPB SCH ×2 (15:27→22:19)
[2018-01-08] MEDS: Albuterol-Ipratrop 3 mg / 0.5 (3 ml) UD IH SCH ×2 (16:07→20:06)
--- NOTE | 2018-01-08 16:45 | CP.PCM.CON ---
History of Present Illness - History of Present Illness History of Present Illness: 77 year old male with PMH of DM, HTN, dyslipidemia, liver cancer S/P lobectomy, came in to [facility] complaining of shortness of breath and cough for about 1-2 days, associated with subjective chills. His cough is dry. He denies headache or dizziness, no nausea or vomiting, no chest pain, no abdominal pain, no leg swelling, no dysuria, no diarrhea. CXR showed bilateral lower lobe infiltrates. Infectious diseases consult is requested to further evaluate and manage. Review of Systems - Review of Systems All systems: reviewed and no additional remarkable complaints except (as per HPI ) Past Patient History - Infectious Disease Hx of Infectious Diseases: None - Past Medical History & Family History Past Medical History?: Yes - Past Social History Smoking Status: Former Smoker - CARDIAC Hx Pacemaker: No - PULMONARY Hx Respiratory Disorders: Yes (USED TO SMOKE CIGARETTES) - NEUROLOGICAL Hx Paralysis: No - HEENT Hx HEENT Problems: Yes Hx Cataracts: Yes (r eye sx, sched left eye for next month) Other/Comment: wears eyeglasses for reading - RENAL Hx Chronic Kidney Disease: No - ENDOCRINE/METABOLIC Hx Diabetes Mellitus Type 2: Yes - HEMATOLOGICAL/ONCOLOGICAL Hx Blood Transfusions: No Hx Blood Transfusion Reaction: No - INTEGUMENTARY Hx Dermatological Problems: No - MUSCULOSKELETAL/RHEUMATOLOGICAL Hx Musculoskeletal Disorders: Yes - GASTROINTESTINAL Hx Gastrointestinal Disorders: Yes (CONSTIPATION) Other/Comment: Liver CA - GENITOURINARY/GYNECOLOGICAL Hx Genitourinary Disorders: No - PSYCHIATRIC Hx Substance Use: No - SURGICAL HISTORY Other/Comment: Liver lobectomy - ANESTHESIA Hx Anesthesia Reactions: No Hx Malignant Hyperthermia: No Meds Allergies/Adverse Reactions: Allergies Allergy/AdvReac Type Severity Reaction Status Date / Time amoxicillin AdvReac VOMITING Verified 01/08/18 12:48 - Medications Medications: Current Medications Aspirin (Aspirin Chewable) 81 mg PO DAILY [facility] Folic Acid (Folic Acid) 1 mg PO DAILY [facility] Glimepiride (Amaryl) 2 mg PO BID [facility] Non-Formulary Medication (Hydrochlorothiazide [Hctz]) 25 mg PO DAILY [facility] Non-Formulary Medication (Irbesartan [Avapro]) 300 mg PO DAILY [facility] Pantoprazole Sodium (Protonix Ec Tab) 40 mg PO DAILY [facility] Physical Exam - Constitutional Appears: Non-toxic, Chronically Ill - Head Exam Head Exam: NORMAL INSPECTION - ENT Exam ENT Exam: Mucous Membranes Moist - Neck Exam Neck exam: Negative for: Meningismus - Respiratory Exam Respiratory Exam: Decreased Breath Sounds - Cardiovascular Exam Cardiovascular Exam: +S1, +S2 - GI/Abdominal Exam GI & Abdominal Exam: Soft. absent: Tenderness Results - Vital Signs Recent Vital Signs: Last Vital Signs Temp 98.9 F 01/08/18 04:47 Pulse 85 01/08/18 06:30 Resp 18 01/08/18 06:30 BP 135/69 01/08/18 06:30 Pulse Ox 95 01/08/18 06:30 - Labs Result Diagrams: 01/08/18 04:05 01/08/18 04:05 Labs: Laboratory Results - last 24 hr 01/08/18 07:50 pO2 154 H VBG pH 7.39 VBG pCO2 36.0 L VBG HCO3 21.8 VBG Total CO2 22.9 VBG O2 Sat (Calc) 97.1 H VBG Base Excess -2.6 L VBG Potassium 4.4 Sodium 142.0 Chloride 113.0 H Glucose 149 H Lactate 0.8 FiO2 21.0 Venous Blood Potassium 4.4 Assessment & Plan - Assessment and Plan (Free Text) Plan: Assessment Systemic Inflammatory response syndrome, R/O severe sepsis from bilateral lower lobe HCAP DM HTN dyslipidemia liver cancer S/P lobectomy Plan Started the patient on Zyvox, Aztreonam and Zithromax pending blood, sputum cx, PCT; reviewed CXR follow up V/Q scan results and patient may need repeat 2D echo will monitor clinically
[2018-01-08] MEDS: Linezolid 600 mg in D5W 300 ml 600 MG/300 ML BAG IVPB SCH ×2 (16:47→21:13)
[2018-01-08 16:49] VITALS: BMI 25.7
[2018-01-08] MEDS ORDERED: Pneumococcal 23-Valent Vaccine IM ONE (16:49)
[2018-01-08 17:58] LABS: FOLATE > 20.0 ng/mL
--- NOTE | 2018-01-08 19:19 | CARD ---
APPROVED REPORT EKG Measurement Heart [id number] <Conclusion> Normal sinus rhythm Normal ECG
[2018-01-08] MEDS ORDERED: Olopatadine 0.1% Opht Sol OU PRN ×2 (20:54→22:13)
--- NOTE | 2018-01-08 20:56 | CON ---
DATE: CONSULT SERVICE: Cardiology. REASON FOR CONSULTATION AND FOLLOWUP: Shortness of breath, cardiac evaluation. 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 Paris Evans who came in with complaint of having shortness of breath that started this morning, but the patient was sleeping, woke up and opened the window, but could not breathe, who called the ambulance and brought here. Denies any chest pain. Denies any palpitations. Recently complaining of dyspnea on exertion. The patient was supposed to have a colonoscopy in [facility] this morning. PAST MEDICAL HISTORY: Significant for peripheral vascular disease, being followed by Dr. Valladares at [facility]; history of liver cancer, status post radiation in [place]; possible recurrence of the tumor in the bone; status post right lobectomy; diabetes; hypertension and hyperlipidemia. PAST SURGICAL HISTORY: Significant for right lobectomy, exploratory laparotomy, eye surgery, radiation to the liver and a little bit broken nose and surgery for the nose. FAMILY HISTORY: Noncontributory. SOCIAL HISTORY: Denies any smoking, cut down after liver cancer, used to smoke a pack to 2 packs; history of heavy alcohol abuse in the past, cut down after the liver cancer was diagnosed in surgery. ALLERGIES: ALLERGIC TO PENICILLIN AND AMOXICILLIN. CURRENT MEDICATIONS: The patient is taking at home amlodipine 10 mg daily, 10 mg, metoprolol 50, losartan 300 mg, hydrochlorothiazide 25 mg, glimepiride 2 mg, folic acid 1 mg, aspirin 81 mg, Xanax 0.1 mg daily. PREVIOUS CARDIAC WORKUP: As follows; the patient had an echocardiography on 01/01/2018 that revealed ejection fraction 65%, normal segmental wall motion, mitral regurgitation with mild tricuspid regurgitation, RV systolic pressure 39; IVC collapsed to 50%. No pericardial effusion noted. There is mild tricuspid regurgitation, RV systolic pressure 39 and also, mild mitral regurgitation. REVIEW OF SYSTEMS: As per HPI. PHYSICAL EXAMINATION: VITAL SIGNS: Height of the patient is 6 feet. Weight of the patient 195 pounds, body mass index 25.7 kg/m2. Temperature afebrile, heart rate 81, blood pressure 147/71. HEENT: PERRLA, extraocular muscles intact. NECK: Supple. No carotid bruit or thyromegaly. CHEST: Clear to auscultation. HEART: S1 and S2 regular. ABDOMEN: Soft. EXTREMITIES: Clubbing and cyanosis negative. LABORATORY DATA: Blood workup as follows; WBC 14.2, hemoglobin 7.9, hematocrit 24.1, platelet count 158. Chemistry shows sodium 145, potassium 4.4, , chloride 110, carbon dioxide 18, anion gap of 22, BUN 43, creatinine 3.3. BNP 2020. Troponin 0.03. IMPRESSION: Acute kidney injury on chronic renal insufficiency, patient's creatinine 3.3 on 01/01/2018; anemia; gastrointestinal bleed, scheduled for colonoscopy; liver cancer, status post radiation, now metastasis to the bone; this shortness of breath is multifactorial secondary to anemia as well as acute kidney injury; elevated BNP; preserved left ventricular function; mild mitral regurgitation; mild tricuspid regurgitation. RECOMMENDATIONS: Monitor H and H, consider packed RBC transfusion. We will send a basic blood workup for anemia workup and we will give the Lasix. Further recommendation depending upon the hospital course. I strongly consider GI and Hematology/Oncology followup. We will give 40 of Lasix now and discontinue hydrochlorothiazide and send the basic anemia workup. We will follow with you. Thank you Dr. Ornelas for providing us the opportunity in taking care of Cristopher Muñoz. Feng Butterfield MD
[2018-01-09] MEDS: Insulin Reg-LOW-Coverage SC SCH ×5 (00:16→21:31)
[2018-01-09] MEDS: Albuterol-Ipratrop 3 mg / 0.5 (3 ml) UD IH SCH ×4 (01:08→19:23)
--- NOTE | 2018-01-09 02:01 | CON ---
DATE: 01/08/2018 PULMONARY CONSULTATION REASON FOR CONSULTATION: Cough, shortness of breath, may have sleep apnea syndrome. HISTORY OF PRESENT ILLNESS: This is a 77-year-old gentleman who has known history of diabetes, hypertension, hyperlipidemia, history of liver cancer requiring lobectomy in the past, brought into the ER with shortness of breath and cough. Does have a loud snoring, daytime sleepy and tired. Had a V/Q is done in the ER which was negative for pulmonary embolism. Patient is supposed to have a colonoscopy done today and ended up in ER. PAST MEDICAL HISTORY: Again, significant for diabetes, hypertension, hyperlipidemia, liver cancer, history of lobectomy, history of esophageal varices, and chronic constipation. SOCIAL HISTORY: Former smoker. Denying any active alcohol use. FAMILY HISTORY: No significant cardiopulmonary disease reported. ALLERGIES: TO AMOXICILLIN, DEVELOP VOMITING. MEDICATIONS: He is on glimepiride 2 mg twice a day, aspirin 81 mg daily, Azactam 1 g IV every 8 hours, Cozaar 100 mg daily, DuoNeb every 6 hours, folic acid 1 mg daily, insulin coverage, Lasix 40 mg IV daily, Protonix 40 mg daily, Zithromax 500 mg daily, and Zyvox 600 mg every 12 hours. REVIEW OF SYSTEMS: No headache, no rhinitis. Has some cough, shortness of breath. Admits to have snoring, daytime sleepy and tired. No chest pain. No nausea. No abdominal pain. No dysuria. No leg pain or leg swelling. PHYSICAL EXAMINATION: GENERAL: In no acute distress. VITAL SIGNS: Temperature is 98, heart rate is 78, respiratory rate is 18, blood pressure 147/63, pulse of 99% on nasal cannula. HEENT: Moist mucous membrane. Crowded airway. Mallampati score is 4. NECK: Supple. No JVD. LUNGS: Have a fair airflow with few rhonchi. HEART: S1 and S2. ABDOMEN: Soft, nontender, no organomegaly. EXTREMITIES: Not much edema. NEUROLOGIC: Awake, alert, and follows simple commands. LABORATORY DATA: Shows hemoglobin 7.9, hematocrit 24.1, WBC 14.2, platelet is 158. INR 1.1. D-dimer was 416. ABG show pH 7.35, pCO2 of 34, pO2 of 154, this is on supplemental oxygen. Iron is 20, TIBC 308, procalcitonin 0.09. Sodium 145, potassium 4.4, chloride 110, bicarbonate 18, BUN 43, creatinine 3.3, glucose 159, calcium is 9.6. AST 27, ALT 28, alkaline phosphatase is 81. Troponin 0.03. ProBNP 2010. Albumin 4.1. Procalcitonin again 0.09. Urinalysis shows trace esterase, wbc's 1 to 3. Has a V/Q scan done which is negative for PE. Chest x-ray was done which showed bilateral lower lobe some infiltrate. IMPRESSION AND PLAN: Bilateral pulmonary infiltrate with shortness of breath and cough, may have a component of chronic obstructive pulmonary disease, hypertension, diabetes, liver cancer, hyperlipidemia, obesity, may have sleep apnea syndrome. Agree with the present management. Continue antibiotics, inhaled bronchodilator, gastric prophylaxis, sequential compression devices to lower extremity, GI followup. Will need sleep study upon discharge as an outpatient, also need PFT to assess pulmonary function. Will need echocardiogram to assess RV and LV function. Thank you and we will follow with you. Feng Connell MD
--- NOTE | 2018-01-09 05:13 | HP ---
CHIEF COMPLAINT: Shortness of breath. HISTORY OF PRESENT ILLNESS: Mr. Cristopher Muñoz is a 77-year-old male with past medical history of diabetes mellitus, hypertension, hypercholesterolemia, history of liver cancer, SP liver lobectomy, came to the emergency room/department by EMS for shortness of breath. states the patient woke up this morning with progressively worsening shortness of breath while in the bed. EMS was notified and the patient was placed on CPAP by EMS en route. noticed that the patient recently left against medical advice following the treatment of GI bleeding and reports the patient was scheduled for colonoscopy today later in the morning, but the patient denies any nausea, vomiting, diarrhea at this time. No back pain. No neck pain. No headache. No dizziness. Main problem is shortness of breath. PAST MEDICAL HISTORY: Diabetes mellitus type 2, constipation, liver lobectomy. FAMILY HISTORY: Father and mother, noncontributory. HABITS: Former smoker. Alcohol, rare. Substance abuse, no. ALLERGIES: PATIENT IS ALLERGIC WITH AMOXICILLIN. HOME MEDICATIONS: Norvasc, HCTZ, Avapro, Xanax, aspirin, folic acid, Amaryl, Lopressor. REVIEW OF SYSTEMS: Patient was seen and examined at the bedside in the emergency room. was standing on the bedside also. Still having shortness of breath. No nausea, vomiting or diarrhea. No fever. No chills. No dysuria, frequency, hematuria, urinary output change. No back pain, neck pain. No rash. No headache or dizziness. PHYSICAL EXAMINATION: VITAL SIGNS: Temperature 98.9, pulse 78, respiratory rate 17, blood pressure 147/63. HEENT: Head: Normocephalic, atraumatic. Eyes: PERRLA. Extraocular muscles intact. Conjunctivae clear. Nose patent. Mucous membranes moist. NECK: Supple. No carotid bruit. No JVD or thyromegaly. CHEST: Bilaterally symmetrical. HEART: S1 and S2 positive. LUNGS: Clear to auscultation. ABDOMEN: Soft. Bowel sounds present. No organomegaly. EXTREMITIES: No edema. No cyanosis. NEUROLOGIC: Patient is awake, alert. Moving all 4 extremities. No focal deficits. LABORATORY DATA: White blood cells 14.2, hemoglobin 7.9, hematocrit 24.1, platelets 158. Sodium 145, potassium 4.4, BUN 43, creatinine is 3.3. Glucose 159. ASSESSMENT AND PLAN: Mr. Cristopher Muñoz is a 77-year-old male with leukocytosis, anemia, hyperchloremia, renal insufficiency, diabetes mellitus type 2, not controlled; came with shortness of breath, pneumonia, congestive heart failure. Lung scan done. Seen by Infectious Disease, Dr. Angulo. History of hypertension, dyslipidemia, liver cancer, status post lobectomy, history of lower gastrointestinal bleeding. Last time, he left against medical advice, never came back for colonoscopy, systemic inflammatory response syndrome, rule out severe sepsis from bilateral lower lobe health-care associated pneumonia. Started the patient on Zyvox, aztreonam, azithromycin depending on blood and sputum culture. the patient needed 2D echo. We will monitor. Lung scan shows low probability ventilation perfusion scan for pulmonary embolism. Consult called with Dr. Butterfield, vacuum caster, Dr. Connell, opener verifier [employer]er [employer]. Started the patient's home medications. Put on sliding scale, glimepiride. Length of time discussion done with the patient's . All questions answered. We will follow up. Nai Ornelas MD [facility]
[2018-01-09 06:42] LABS: BASO # 0.02 K/mm3 (0.0-2.0); BASO % 0.2 % (0.0-3.0); EOS # 0.1 (0.0-0.7); EOS % 1.1 % (1.5-5.0); GRAN # 6.69 (1.4-6.5); GRAN % 72.9 % (50.0-68.0); HEMOGLOBIN 7.4 g/dL (14.0-18.0); LYMPH # 1.2 (1.2-3.4); LYMPH % 13.3 % (22.0-35.0); MEAN CELL VOLUME 86.6 fl (80.0-105.0); MEAN CORPUSCULAR HEMOGLOBIN 28.2 pg (25.0-35.0); MEAN CORPUSCULAR HGB CONC 32.6 g/dl (31.0-37.0); MEAN PLATELET VOLUME 10.9 fl (7.0-11.0); MONO # 1.2 (0.1-0.6); MONO % 12.5 % (1.0-6.0); RBC 2.62 10^6/uL (3.5-6.1); RED CELL DISTRIBUTION WIDTH 15.8 % (11.5-14.5); WHITE BLOOD COUNT 9.2 10^3/ul (4.5-11.0)
[2018-01-09] MEDS: Aztreonam 1 Gm in NS 100mL 100 ML IVPB SCH ×3 (06:47→21:04)
[2018-01-09] MEDS: Pantoprazole 40 mg EC Tab PO SCH ×2 (06:48→09:20)
[2018-01-09 07:35] LABS: ALB/GLOB RATIO 1.3 (1.1-1.8); ALBUMIN 3.8 g/dL (3.0-4.8); CALCIUM 9.5 mg/dL (8.4-10.5)
--- NOTE | 2018-01-09 08:51 | CP.PCM.PN ---
Subjective - Date & Time of Evaluation Date of Evaluation: 01/09/18 Time of Evaluation: 06:35 - Subjective Subjective: Sleeping but easily awaken, denies chest pain,denies shortness of breath Reason for consultation and follow up: cardiac evaluation, shortness of breath, hypertension,hyperlipidemia, liver cancer Seen and examined by me and Dr. Butterfield Objective - Vital Signs/Intake and Output Vital Signs (last 24 hours): Temp Pulse Resp BP Pulse Ox 98.5 F 111 H 22 146/66 97 01/09/18 06:00 01/09/18 06:00 01/09/18 06:00 01/09/18 06:00 01/09/18 06:00 Intake and Output: 01/09/18 01/09/18 06:59 18:59 Intake Total 240 Output Total 600 Balance -360 - Medications Medications: Current Medications Albuterol/Ipratropium (Duoneb 3 Mg/0.5 Mg (3 Ml) Ud) 3 ml IH [id number] [facility] Last Admin: 01/09/18 08:15 Dose: 3 ml Aspirin (Aspirin Chewable) 81 mg PO DAILY [facility] Last Admin: 01/08/18 09:57 Dose: 81 mg Folic Acid (Folic Acid) 1 mg PO DAILY [facility] Last Admin: 01/08/18 09:57 Dose: 1 mg Furosemide (Lasix) 40 mg IV DAILY [facility] Glimepiride (Amaryl) 2 mg PO BID [facility] Last Admin: 01/08/18 18:16 Dose: 2 mg Linezolid (Zyvox 600mg/300ml D5w) 600 mg in 300 mls @ 200 mls/hr IVPB Q12 [facility] PRN Reason: Protocol Stop: 01/15/18 12:46 Last Admin: 01/08/18 21:13 Dose: Not Given Aztreonam (Azactam 1 Gm) 100 mls @ 100 mls/hr IVPB Q8 [facility] PRN Reason: Protocol Stop: 01/15/18 14:01 Last Admin: 01/09/18 06:47 Dose: 100 mls/hr Azithromycin (Zithromax 500mg In Ns) 500 mg in 250 mls @ 167 mls/hr IVPB DAILY [facility] PRN Reason: Protocol Insulin Human Regular (Humulin R Low) 0 units SC ACHS [facility] PRN Reason: Protocol Last Admin: 01/09/18 08:08 Dose: Not Given Losartan Potassium (Cozaar) 100 mg PO DAILY [facility] Last Admin: 01/08/18 09:57 Dose: 100 mg Olopatadine HCl (Patanol 0.1% Opht Soln) 0 ml OU BID PRN PRN Reason: Allergy symptoms Pantoprazole Sodium (Protonix Ec Tab) 40 mg PO DAILY [facility] Last Admin: 01/08/18 09:57 Dose: 40 mg Pantoprazole Sodium (Protonix Ec Tab) 40 mg PO 0600 [facility] Last Admin: 01/09/18 06:48 Dose: 40 mg - Labs Labs: 01/09/18 05:30 01/09/18 05:30 PT 12.7 SECONDS (9.4-12.5) H 01/08/18 04:05 INR 1.10 (0.93-1.08) H 01/08/18 04:05 APTT 35.6 Seconds (25.1-36.5) 01/08/18 04:05 - Constitutional Appears: No Acute Distress - Eye Exam Eye Exam: Normal appearance - ENT Exam ENT Exam: Mucous Membranes Moist - Respiratory Exam Respiratory Exam: Decreased Breath Sounds, NORMAL BREATHING PATTERN - Cardiovascular Exam Cardiovascular Exam: +S1, +S2 Additional comments: telemetry sinus tachycardia 110's - GI/Abdominal Exam GI & Abdominal Exam: Soft, Normal Bowel Sounds - Extremities Exam Extremities Exam: Normal Capillary Refill Additional comments: 1-2 + pedal edema - Neurological Exam Neurological Exam: Alert, Awake, Oriented x3 - Psychiatric Exam Psychiatric exam: Normal Affect, Normal Mood - Skin Skin Exam: Intact, Normal Color, Warm Assessment and Plan - Assessment and Plan (Free Text) Assessment: A 77 year old male who came into the ER due to shortness of breath. History of diabetes, hypertension,hyperlipidemia,liver cancer, status post lobectomy at [facility] ,post radiation, cancer metastasis to the bone,peripheral vascular disease, history of alcohol abuse and history of heavy smoking. Plan: Elevated creatinine suggesting kidney injury secondary to anemia Supposedly for colonoscopy at [facility] yesterday Anemia work up initiated Consider blood transfusion No evidence of cardiac ischemia On ASA 81 mg daily,Lasix 40 mg daily,Cozaar 100 mg daily Tachycardia- 110's will add Lopressor 50 mg BID Continue current medications Continue current treatment Will follow up Plan and treatment discussed with Dr. Butterfield
[2018-01-09] MEDS: Linezolid 600 mg in D5W 300 ml 600 MG/300 ML BAG IVPB SCH (09:36)
[2018-01-09] MEDS ORDERED: Azithromycin 500MG/NS 250ml 500 MG/250 ML BAG IVPB SCH (10:00)
[2018-01-09] MEDS ORDERED: Potassium Chloride 20 mEq ER Tab PO ONE (12:52)
--- NOTE | 2018-01-09 15:04 | PN ---
DATE: 01/09/2018 Addendum of a initial progress note dictated this morning. REASON FOR ADDENDUM: The patient's repeat hemoglobin came back 7.4. So, we will give 2 units of packed RBC and give 40 of Lasix in between packed RBC transfusion and if the patient remains stable after the transfusion, we will discontinue telemetry and treat aggressive medically. We will check electrolytes in the morning. Feng Butterfield MD
[2018-01-09] MEDS ORDERED: DiphenhydrAMINE 50 mg/ml Inj IVP STA (17:16)
--- NOTE | 2018-01-09 19:22 | PN ---
DATE: 01/09/2018 PULMONARY PROGRESS NOTE REFERRING PHYSICIAN: Nai Ornelas MD. SUBJECTIVE: He is lying in the bed, head at 45 degrees. is at bedside. Feels better, still has some shortness of breath. Admits to loud snoring at nighttime, daytime sleepy and tired. No nausea, no vomiting. No diarrhea. No leg pain, no leg swelling. OBJECTIVE: GENERAL: In no acute distress. VITAL SIGNS: Temperature is 98, heart rate is 92, respiratory rate is 18, blood pressure 155/63. HEENT: Moist mucous membranes. Small oral cavity. Edentulous. LUNGS: Have a fair airflow with a few crackles. HEART: S1 and S2. ABDOMEN: Soft, nontender. No organomegaly. EXTREMITIES: No edema. NEUROLOGICAL: Awake, alert, follows simple commands. MEDICATIONS: He is on glimepiride 2 mg twice a day, aspirin 81 mg daily, Azactam is 1 g every 8 hour, Cozaar 100 mg daily, DuoNeb every 6 hour, folic acid 1 mg daily, insulin coverage, iron sucrose 100 mg daily, Lasix 40 mg daily, metoprolol tartrate 50 mg twice a day, Protonix 40 mg daily, Zithromax 500 mg daily, Zyvox 600 mg twice a day. LABORATORY DATA: Shows hemoglobin 7.4, hematocrit 22.7, WBC 9.2, platelet count is 153. Sodium 147, potassium 3.6, chloride 110, bicarbonate 23, BUN 39, creatinine 2.5, glucose 138, hemoglobin A1c 6.3, phosphorus 5.3, magnesium 2.5. AST 32, ALT 26, alk phos is 72. Albumin is 3.8. Cholesterol is 97. TSH is 3. Microbiology: Blood culture, urine culture, there is no growth. IMPRESSION AND PLAN: Pulmonary infiltrates, anemia, chronic obstructive lung disease, hypertension, diabetes, liver cancer, hyperlipidemia, obesity, may have sleep apnea syndrome, being transfused, also has renal failure. We will place him on CPAP 8 cm, 35% oxygen while sleeping. Follow up electrolyte to avoid nephrotoxic drugs. Seen by Infectious Disease and Cardiology. Thank you and we will follow with you. Feng Connell MD
--- NOTE | 2018-01-09 19:28 | PN ---
DATE: 01/09/2018 LOCATION: The patient was seen in room 374, bed 2. SUBJECTIVE: No fevers and no chills and comfortable. PHYSICAL EXAMINATION: VITAL SIGNS: Temperature is 98, blood pressure is 150/60, respiratory rate of 18, heart rate of 97. HEENT: Examination of HEENT is unremarkable. NECK: Supple. LUNGS: Have decreased breath sounds. HEART: Normal S1 and S2. ABDOMEN: Soft, nontender. LABORATORY DATA: Laboratory examination revealed a white count of 9.2, hemoglobin of 7, platelets of 153. Coagulation is noted. Chemistries reveals a BUN of 39, creatinine of 3.5. Urinalysis is noted. Microbiology reveals the blood culture has no growth, urine culture has no growth. Review of orders reveals the patient is on aztreonam, Zyvox and azithromycin. The patient's procalcitonin is 0.09. The patient had a lung scan, nuclear scan, which has low probability. The patient had a chest x-ray, which showed a new lower lobe infiltrate. ASSESSMENT AND PLAN: A 77-year-old with systemic inflammatory response syndrome; actually the patient with severe sepsis with bilateral lower lobe healthcare-associated pneumonia; diabetic; hypertension; dyslipidemia; liver cancer, status post right lobectomy, on Zyvox, aztreonam and Zithromax. The patient is overall improving. Dr. Butterfield's note is reviewed. Madelyn Robles's note is reviewed. Dr. Ornelas's history and physical examination is reviewed. According to nurse practitioner, Madelyn Robles, the patient has cancer with metastasis to the bone, hypertension, liver cancer. We will change the Zyvox to p.o. and review of orders reveals the patient is also on Zithromax, we will change that to p.o. Overall, the patient is greatly improved. We will follow with you and we will also repeat the procalcitonin and follow the patient's clinical response. Dr. Connell's consultation is also appreciated. Jad Longoria MD
--- NOTE | 2018-01-09 19:41 | CP.PCM.PN ---
Subjective - Date & Time of Evaluation Date of Evaluation: 01/09/18 Time of Evaluation: 19:35 - Subjective Subjective: PGY-[address] Ornelas CC: New onset elevated temperature during blood transfusion S: Mr Muñoz, 77 M, with Hx DM, HTN, dyslipidemia, liver cancer S/P lobectomy, came in to [facility] complaining of shortness of breath and cough for about 1-2 days, associated with subjective chills. His cough is dry. He had Hx GI bleed originally scheduled for colonoscopy at [facility] but ended up at [facility]. CXR showed bilateral lower lobe infiltrates. Pt is planned for cardiac catherterization with Dr. Butterfield tomorrow. Dr Butterfield ordered 2u of pRBC. After transfusion started, pt T 99.8. I was paged. Pt denies F/C, SHAIKH, CP, SOB, N/V/D/C, numbness/tingling O: Transfusion Pre-vital Signs taken at 4:33pm Temp 98.7, BP 158/66, HR 97, RR 18, Spo2 100% on 2L NC T 99.8 at 5:30pm, BP 155/63 T 99.3 at 6pm, BP 155/63 Gen: NAD Card: regular s1 s2 Pulm: CTA b/l no w/r/r Skin: No rash A/P: Transfusion adverse reaction - Tylenol x 1 - Benadryl 50 IV x 1 - Slow transfusion rate from 125cc to 80cc - Per cardio: Give lasix 40 IV in between the 2u RBC. Given - Notified Dr Ornelas - Endorse to Night House Doc Objective - Vital Signs/Intake and Output Vital Signs (last 24 hours): Temp Pulse Resp BP Pulse Ox 99.3 F 101 H 18 155/63 H 97 01/09/18 17:41 01/09/18 18:00 01/09/18 17:41 01/09/18 17:41 01/09/18 06:00 Intake and Output: 01/09/18 01/10/18 18:59 06:59 Intake Total 0 Balance 0 - Medications Medications: Current Medications Albuterol/Ipratropium (Duoneb 3 Mg/0.5 Mg (3 Ml) Ud) 3 ml IH [id number] [facility] Last Admin: 01/09/18 19:23 Dose: 3 ml Aspirin (Aspirin Chewable) 81 mg PO DAILY COUNT INCLUDES [facility] Last Admin: 01/09/18 09:38 Dose: 81 mg Azithromycin (Zithromax) 500 mg PO DAILY COUNT INCLUDES THE [facility] PRN Reason: Protocol Stop: 01/15/18 10:01 Folic Acid (Folic Acid) 1 mg PO DAILY COUNT INCLUDES THE [facility] Last Admin: 01/09/18 09:58 Dose: 1 mg Furosemide (Lasix) 40 mg IVP DAILY COUNT INCLUDES THE [facility] Last Admin: 01/09/18 09:51 Dose: 40 mg Glimepiride (Amaryl) 2 mg PO BID COUNT INCLUDES THE [facility] Last Admin: 01/09/18 17:03 Dose: 2 mg Aztreonam (Azactam 1 Gm) 100 mls @ 100 mls/hr IVPB Q8 COUNT INCLUDES THE [facility] PRN Reason: Protocol Stop: 01/15/18 14:01 Last Admin: 01/09/18 14:05 Dose: 100 mls/hr Iron Sucrose 100 mg/ Sodium (Chloride) 105 mls @ 210 mls/hr IVPB DAILY [facility] Stop: 01/12/18 10:29 Insulin Human Regular (Humulin R Low) 0 units SC ACHS COUNT INCLUDES THE [facility] PRN Reason: Protocol Last Admin: 01/09/18 17:03 Dose: Not Given Linezolid (Zyvox) 600 mg PO BID COUNT INCLUDES THE [facility] PRN Reason: Protocol Stop: 01/17/18 18:01 Losartan Potassium (Cozaar) 100 mg PO DAILY COUNT INCLUDES THE [facility] Last Admin: 01/09/18 09:38 Dose: 100 mg Metoprolol Tartrate (Lopressor) 50 mg PO BRKDIN COUNT INCLUDES THE [facility] Last Admin: 01/09/18 17:03 Dose: 50 mg Olopatadine HCl (Patanol 0.1% Opht Soln) 0 ml OU BID PRN PRN Reason: Allergy symptoms Pantoprazole Sodium (Protonix Ec Tab) 40 mg PO 0600 COUNT [facility]CLUDES THE [facility] Last Admin: 01/09/18 06:48 Dose: 40 mg - Labs Labs: 01/09/18 05:30 01/09/18 05:30 PT 12.7 SECONDS (9.4-12.5) H 01/08/18 04:05 INR 1.10 (0.93-1.08) H 01/08/18 04:05 APTT 35.6 Seconds (25.1-36.5) 01/08/18 04:05
[2018-01-10] MEDS: Albuterol-Ipratrop 3 mg / 0.5 (3 ml) UD IH SCH ×4 (01:52→20:10)
--- NOTE | 2018-01-10 03:38 | PN ---
DATE: 01/09/2018 The patient is a 77-year-old male. SUBJECTIVE: The patient is seen and examined at the bedside. was sitting on the bedside also. Feels better, still has shortness of breath, admits to loud snoring at night, daytime sleepy and tired. No nausea, vomiting or diarrhea. No hematuria or hematochezia. No swelling of the leg. No chest pain. No palpitation. No headache. No dizziness. Dr. Butterfield ordered blood transfusion and during his transfusion, he has low-grade fever. House physician gave Benadryl and Tylenol. After that, temperature came down. Patient completed the blood transfusion. PHYSICAL EXAMINATION: VITAL SIGNS: Temperature 98, heart rate 92, respiratory rate 18 and blood pressure 155/63. HEENT: Head, normocephalic and atraumatic. Eyes, PERRLA. Extraocular muscles intact. Conjunctivae clear. Nose patent. Mucosus membrane moist. NECK: Supple. No carotid bruit. No JVD. No thyromegaly. LUNGS: Have a fair airflow with few crackles. HEART: S1, S2 positive. ABDOMEN: Soft, nontender. No organomegaly. EXTREMITIES: No edema, no cyanosis. NEUROLOGICAL: Patient is awake, alert. Follows simple command. MEDICATIONS: He is on glimepiride, aspirin, Azactam, Cozaar, DuoNeb, insulin, iron, metoprolol, Protonix, azithromycin, LABORATORY DATA: Hemoglobin 7.4, hematocrit 22.7 before transfusion, white blood cell 9.2, platelets 153. Sodium 147, potassium 3.6, BUN 39, creatinine 2.5, glucose 138, hemoglobin A1c 6.3. AST 32, ALT 27. Cholesterol 97. TSH is 3. ASSESSMENT AND PLAN: Mr. Cristopher Muñoz is a 77-year-old male with multiple medical problems; has anemia, Dr. Butterfield ordered blood transfusion and during transfusion, patient has slight fever; Benadryl and Tylenol were given by house physician and decreased the transfusion rate; patient tolerated the blood transfusion; pulmonary infiltrates, chronic obstructive lung disease, hypertension, diabetes mellitus, liver cancer, hyperlipidemia, obesity, sleep apnea syndrome and history of renal insufficiency. Dr. Connell put the patient on continuous positive airway pressure 8 cm with 35% oxygen while sleeping . We will follow up electrolytes in the morning. Dr. Connell, Dr. Longoria and Dr. Butterfield are on the case. Seen by house physician. Repeat labs. We will follow up. Nai Ornelas MD [facility]
[2018-01-10] MEDS: Pantoprazole 40 mg EC Tab PO SCH (05:02)
[2018-01-10] MEDS: Aztreonam 1 Gm in NS 100mL 100 ML IVPB SCH ×3 (05:02→21:51)
[2018-01-10 07:08] LABS: BASO # 0.03 K/mm3 (0.0-2.0); BASO % 0.3 % (0.0-3.0); EOS # 0.2 (0.0-0.7); EOS % 2.3 % (1.5-5.0); GRAN # 5.89 (1.4-6.5); GRAN % 68.5 % (50.0-68.0); HEMOGLOBIN 9.3 g/dL (14.0-18.0); LYMPH # 1.3 (1.2-3.4); LYMPH % 15.4 % (22.0-35.0); MEAN CELL VOLUME 84.1 fl (80.0-105.0); MEAN CORPUSCULAR HEMOGLOBIN 27.8 pg (25.0-35.0); MEAN CORPUSCULAR HGB CONC 33.1 g/dl (31.0-37.0); MONO # 1.2 (0.1-0.6); MONO % 13.5 % (1.0-6.0); RBC 3.34 10^6/uL (3.5-6.1); RED CELL DISTRIBUTION WIDTH 16.2 % (11.5-14.5); WHITE BLOOD COUNT 8.6 10^3/ul (4.5-11.0)
[2018-01-10 07:26] LABS: ALB/GLOB RATIO 1.3 (1.1-1.8); ALBUMIN 3.9 g/dL (3.0-4.8); CALCIUM 9.6 mg/dL (8.4-10.5)
[2018-01-10] MEDS: Insulin Reg-LOW-Coverage SC SCH ×4 (08:07→22:00)
--- NOTE | 2018-01-10 14:05 | PN ---
DATE: 01/10/2018 SUBJECTIVE: The patient is in bed, in no acute distress, nontoxic. PHYSICAL EXAMINATION: VITAL SIGNS: On exam, temperature is 97, blood pressure is 150/60, respiratory rate 20, heart rate of 84. HEENT: Examination is unremarkable. NECK: Supple. LUNGS: Decreased breath sounds. HEART: Normal S1 and S2. ABDOMEN: Soft, nontender. LABORATORY DATA: Reveals the patient's white count is 8.6, hemoglobin of 9, platelets of 146. Coagulation is noted. Creatinine is 3.5. Urinalysis is noted. Microbiology reveals the blood cultures are negative. Urine cultures are negative. Review of orders are noted. MEDICATIONS: The patient is on linezolid, Zithromax, and Azactam. He has a procalcitonin of 0.09. PMD's progress note is reviewed. progress note is reviewed. ASSESSMENT AND PLAN: This is a 77-year-old male with systemic inflammatory response/severe sepsis, bilateral lower lobe healthcare-associated pneumonia in a patient with diabetes mellitus; hypertension; dyslipidemia; liver cancer, status post lobectomy, currently on Zyvox, Zithromax, aztreonam. We will check on the repeat procalcitonin and clinical response; as far of the cultures, blood and urine cultures are negative. Urine for Legionella is pending. Procalcitonin is pending. Sputum culture is pending. Jad Longoria MD
--- NOTE | 2018-01-10 14:16 | PN ---
DATE: 01/10/2018 REASON FOR CONSULTATION AND FOLLOWUP: Shortness of breath, cardiac evaluation, severe anemia, status post packed RBC transfusion. SUBJECTIVE: Patient denies any chest pain, shortness of breath or any palpitations. Feels a lot better. States that he had a bowel movement with a little blackish stool. PHYSICAL EXAMINATION: VITAL SIGNS: Temperature afebrile, heart rate 84, blood pressure 152/64. HEENT: PERRLA. Extraocular muscles intact. NECK: Supple. No carotid bruits or thyromegaly. CHEST: Clear to auscultation. HEART: S1 and S2. Regular. ABDOMEN: Soft. EXTREMITIES: Clubbing and cyanosis negative. LABORATORY DATA: WBC 8.6, hemoglobin 9.7, hematocrit 28.1, platelet count 146. Chemistry shows sodium 147, potassium 4.1, chloride 110, carbon dioxide 23, anion gap of 18, BUN , creatinine 3.5. 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 CVS status is stable. No evidence of acute myocardial infarction ischemia noted. Patient had recently echocardiography done that shows ejection fraction of 65%, dated 01/01/2018, normal segmental wall motion, mitral regurgitation, mild tricuspid regurgitation, RV systolic pressure 39, collapse, no pericardial effusion. RECOMMENDATIONS: Consider GI and Hem/Onc followup. Avoid nephrotoxic medications. Uncontrolled hypertension, we will put hydralazine 50 b.i.d. We will discontinue Telemetry and as mentioned in my previous note, consider GI and Hem/Onc followup. CVS status is stable. We will follow with you. I discussed with the also. No further cardiac workup is planned. Once the patient is stable medically, he can be discharged home, but needs GI and Hem/Onc followup. Thank you Dr. Ornelas for providing us the opportunity in taking care of the patient, Cristopher Muñoz. Feng Butterfield MD
--- NOTE | 2018-01-10 23:13 | CP.PCM.PN ---
Subjective - Date & Time of Evaluation Date of Evaluation: 01/10/18 Time of Evaluation: 23:11 - Subjective Subjective: Patient was seen at bedside. He has right side of abdomen/RLQ abdominal pain,dull, 5/10 no radiation, similar to pain he came in with, had BM, dark color,stone in stool. Has no other complaints now. Medical record was reviewed. 77 year old white male was admitted with sob, cough of 2 days duration. Has PMH of HTN,DM,HLD,Liver cancer, liver lobectomy,g i bleeding, anemia, renal issufficiency. Objective - Vital Signs/Intake and Output Vital Signs (last 24 hours): Temp Pulse Resp BP Pulse Ox 98.1 F 78 18 155/68 H 97 01/10/18 11:41 01/10/18 17:46 01/10/18 11:41 01/10/18 17:46 01/10/18 06:00 Intake and Output: 01/10/18 01/11/18 18:59 06:59 Intake Total 600 Output Total 1200 Balance -600 - Medications Medications: Current Medications Albuterol/Ipratropium (Duoneb 3 Mg/0.5 Mg (3 Ml) Ud) 3 ml IH [id number] [facility] Last Admin: 01/10/18 20:10 Dose: 3 ml Aspirin (Aspirin Chewable) 81 mg PO DAILY [facility] Last Admin: 01/10/18 10:30 Dose: 81 mg Azithromycin (Zithromax) 500 mg PO DAILY [facility] PRN Reason: Protocol Stop: 01/15/18 10:01 Last Admin: 01/10/18 10:30 Dose: 500 mg Folic Acid (Folic Acid) 1 mg PO DAILY [facility] Last Admin: 01/10/18 13:04 Dose: 1 mg Furosemide (Lasix) 40 mg IVP DAILY [facility] Last Admin: 01/10/18 10:24 Dose: 40 mg Glimepiride (Amaryl) 2 mg PO BID [facility] Last Admin: 01/10/18 17:47 Dose: Not Given Hydralazine HCl (Apresoline) 50 mg PO BID [facility] Last Admin: 01/10/18 17:46 Dose: 50 mg Aztreonam (Azactam 1 Gm) 100 mls @ 100 mls/hr IVPB Q8 [facility] PRN Reason: Protocol Stop: 01/15/18 14:01 Last Admin: 01/10/18 21:51 Dose: 100 mls/hr Iron Sucrose 100 mg/ Sodium (Chloride) 105 mls @ 210 mls/hr IVPB DAILY [facility] Stop: 01/12/18 10:29 Last Admin: 01/10/18 10:37 Dose: 210 mls/hr Insulin Human Regular (Humulin R Low) 0 units SC ACHS [facility] PRN Reason: Protocol Last Admin: 01/10/18 17:36 Dose: Not Given Linezolid (Zyvox) 600 mg PO BID [facility] PRN Reason: Protocol Stop: 01/17/18 18:01 Last Admin: 01/10/18 17:45 Dose: 600 mg Losartan Potassium (Cozaar) 100 mg PO DAILY [facility] Last Admin: 01/10/18 10:29 Dose: 100 mg Metoprolol Tartrate (Lopressor) 50 mg PO BRKDIN [facility] Last Admin: 01/10/18 17:45 Dose: 50 mg Olopatadine HCl (Patanol 0.1% Opht Soln) 0 ml OU BID PRN PRN Reason: Allergy symptoms Pantoprazole Sodium (Protonix Ec Tab) 40 mg PO 0600 [facility] Last Admin: 01/10/18 05:02 Dose: 40 mg - Labs Labs: 01/10/18 06:00 01/10/18 06:00 PT 12.7 SECONDS (9.4-12.5) H 01/08/18 04:05 INR 1.10 (0.93-1.08) H 01/08/18 04:05 APTT 35.6 Seconds (25.1-36.5) 01/08/18 04:05 Micro Results 01/08/18 05:45 Blood Blood Culture - Preliminary NO GROWTH AFTER 48 HOURS 01/08/18 05:10 Blood Blood Culture - Preliminary NO GROWTH AFTER 48 HOURS 01/08/18 05:40 Urine Urine Culture - Final No Growth (<1,000 CFU/ML) Most Recent Lab Values WBC 8.6 10^3/ul (4.5-11.0) 01/10/18 06:00 RBC 3.34 10^6/uL (3.5-6.1) L 01/10/18 06:00 Hgb 9.3 g/dL (14.0-18.0) L 01/10/18 06:00 Hct 28.1 % (42.0-52.0) L 01/10/18 06:00 MCV 84.1 fl (80.0-105.0) 01/10/18 06:00 MCH 27.8 pg (25.0-35.0) 01/10/18 06:00 MCHC 33.1 g/dl (31.0-37.0) 01/10/18 06:00 RDW 16.2 % (11.5-14.5) H 01/10/18 06:00 Plt Count 146 10^3/uL (120.0-450.0) 01/10/18 06:00 MPV 11.0 fl (7.0-11.0) 01/10/18 06:00 Gran % 68.5 % (50.0-68.0) H 01/10/18 06:00 Lymph % (Auto) 15.4 % (22.0-35.0) L 01/10/18 06:00 [place] % (Auto) 13.5 % (1.0-6.0) H 01/10/18 06:00 Eos % (Auto) 2.3 % (1.5-5.0) 01/10/18 06:00 Baso % (Auto) 0.3 % (0.0-3.0) 01/10/18 06:00 Gran # 5.89 (1.4-6.5) 01/10/18 06:00 Lymph # (Auto) 1.3 (1.2-3.4) 01/10/18 06:00 [place] # (Auto) 1.2 (0.1-0.6) H 01/10/18 06:00 Eos # (Auto) 0.2 (0.0-0.7) 01/10/18 06:00 Baso # (Auto) 0.03 K/mm3 (0.0-2.0) 01/10/18 06:00 PT 12.7 SECONDS (9.4-12.5) H 01/08/18 04:05 INR 1.10 (0.93-1.08) H 01/08/18 04:05 APTT 35.6 Seconds (25.1-36.5) 01/08/18 04:05 D-Dimer, Quantitative 416 ng/mL (0-243) H 01/08/18 04:05 pCO2 34 mm/Hg (35-45) L 01/08/18 04:20 pO2 154 mm/Hg (30-55) H 01/08/18 07:50 HCO3 18.8 mmol/L (21-28) L 01/08/18 04:20 ABG pH 7.35 (7.35-7.45) 01/08/18 04:20 ABG Total CO2 19.8 mmol.L (22-28) L 01/08/18 04:20 ABG O2 Saturation 97.4 % (95-98) 01/08/18 04:20 ABG O2 Content 10.6 ML/dl (15-23) L 01/08/18 04:20 ABG Base Excess -6.2 mmol/L (-2.0-3.0) L 01/08/18 04:20 ABG Hemoglobin 7.3 g/dL (11.7-17.4) L 01/08/18 04:20 ABG Carboxyhemoglobin 0 % (0.5-1.5) L 01/08/18 04:20 POC ABG HHb (Measured) 2.6 % (0-5) 01/08/18 04:20 ABG Methemoglobin 0.0 % (0.0-3.0) 01/08/18 04:20 ABG O2 Capacity 10.9 mL/dl (16-24) L 01/08/18 04:20 VBG pH 7.39 (7.32-7.43) 01/08/18 07:50 VBG pCO2 36.0 (40-60) L 01/08/18 07:50 VBG HCO3 21.8 mmol/l (21-28) 01/08/18 07:50 VBG Total CO2 22.9 mmol.L (22-28) 01/08/18 07:50 VBG O2 Sat (Calc) 97.1 % (40-65) H 01/08/18 07:50 VBG Base Excess -2.6 mmol/L (0.0-2.0) L 01/08/18 07:50 VBG Potassium 4.4 mmol/L (3.6-5.2) 01/08/18 07:50 Hgb O2 Saturation 97.4 % (95.0-98.0) 01/08/18 04:20 Sodium 142.0 mmol/L (132-148) 01/08/18 07:50 Chloride 113.0 mmol/L (98-107) H 01/08/18 07:50 Glucose 149 mg/dl (75-110) H 01/08/18 07:50 Lactate 0.8 mmol/L (0.7-2.1) 01/08/18 07:50 FiO2 21.0 % 01/08/18 07:50 Sodium 147 mmol/L (132-148) 01/10/18 06:00 Potassium 4.1 mmol/L (3.6-5.0) 01/10/18 06:00 Chloride 110 mmol/L (98-107) H 01/10/18 06:00 Carbon Dioxide 23 mmol/L (21-33) 01/10/18 06:00 Anion Gap 18 (10-20) 01/10/18 06:00 BUN 36 mg/dL (7-21) H 01/10/18 06:00 Creatinine 3.5 mg/dl (0.8-1.5) H 01/10/18 06:00 Est GFR ( Amer) 21 01/10/18 06:00 Est GFR (Non-Af Amer) 17 01/10/18 06:00 POC Glucose (mg/dL) 53 mg/dL (65-110) L 01/10/18 21:10 Random Glucose 71 mg/dL (70-110) 01/10/18 06:00 Hemoglobin A1c 6.3 % (4.2-6.5) 01/09/18 05:30 Calcium 9.6 mg/dL (8.4-10.5) 01/10/18 06:00 Phosphorus 5.3 mg/dL (2.5-4.5) H 01/09/18 05:30 Magnesium 2.4 mg/dL (1.7-2.2) H 01/10/18 06:00 Iron 20 ug/dL (45-180) L 01/08/18 08:00 TIBC 308 ug/dL (261-462) 01/08/18 08:00 % Saturation 6 % (20-55) L 01/08/18 08:00 Total Bilirubin 0.7 mg/dL (0.2-1.3) 01/10/18 06:00 AST 32 U/L (17-59) 01/10/18 06:00 ALT 28 U/L (7-56) 01/10/18 06:00 Alkaline Phosphatase 71 U/L (38-126) 01/10/18 06:00 Lactate Dehydrogenase 505 U/L (333-699) 01/08/18 04:05 Total Creatine Kinase 65 U/L (35-230) 01/08/18 04:05 Troponin I 0.03 ng/mL D 01/08/18 04:05 NT-Pro-B Natriuret Pep 901 pg/mL (0-450) H 01/10/18 06:00 Total Protein 6.9 g/dL (5.8-8.3) 01/10/18 06:00 Albumin 3.9 g/dL (3.0-4.8) 01/10/18 06:00 Globulin 3.0 gm/dL 01/10/18 06:00 Albumin/Globulin Ratio 1.3 (1.1-1.8) 01/10/18 06:00 Triglycerides 111 mg/dL (35-160) 01/09/18 05:30 Cholesterol 97 mg/dL (130-200) L 01/09/18 05:30 LDL Cholesterol Direct 37 mg/dL (0-129) 01/09/18 05:30 HDL Cholesterol 28 mg/dL (29-60) L 01/09/18 05:30 Vitamin B12 418 pg/mL (239-931) 01/08/18 04:30 Folate > 20.0 ng/mL 01/08/18 04:30 RBC Folate 1479 ng/mL RBC (>280) 01/08/18 04:30 Procalcitonin 0.32 NG/ML (0.19-0.49) 01/10/18 06:00 TSH 3rd Generation 3.00 mIU/mL (0.46-4.68) 01/09/18 05:30 Venous Blood Potassium 4.4 mmol/L (3.6-5.2) 01/08/18 07:50 Urine Color Straw (YELLOW) 01/08/18 05:40 Urine Appearance Clear (CLEAR) 01/08/18 05:40 Urine pH 6.0 (4.7-8.0) 01/08/18 05:40 Ur Specific [place] 1.020 (1.005-1.035) 01/08/18 05:40 Urine Protein 100 mg/dL (<30 mg/dL) H 01/08/18 05:40 Urine Glucose (UA) Negative mg/dL (NEGATIVE) 01/08/18 05:40 Urine Ketones Negative mg/dL (NEGATIVE) 01/08/18 05:40 Urine Blood Trace-intact (NEGATIVE) H 01/08/18 05:40 Urine Nitrate Negative (NEGATIVE) 01/08/18 05:40 Urine Bilirubin Negative (NEGATIVE) 01/08/18 05:40 Urine Urobilinogen 0.2 E.U./dL (<1 E.U./dL) 01/08/18 05:40 Ur Leukocyte Esterase Trace Ashley/uL (NEGATIVE) H 01/08/18 05:40 Urine RBC 1 - 3 /hpf (0-2) 01/08/18 05:40 Urine WBC 1 - 3 /hpf (0-6) 01/08/18 05:40 Ur Epithelial Cells 1 - 3 /hpf (0-5) 01/08/18 05:40 Urine Bacteria Rare (NEG) 01/08/18 05:40 Blood Type B NEGATIVE 01/09/18 13:06 Antibody Screen Negative 01/09/18 13:06 Crossmatch See Detail 01/09/18 13:06 BBK History Checked Patient has bt 01/09/18 13:06 - Head Exam Head Exam: ATRAUMATIC, NORMAL INSPECTION, NORMOCEPHALIC - Eye Exam Eye Exam: Normal appearance - ENT Exam ENT Exam: Normal External Ear Exam - Neck Exam Neck Exam: Normal Inspection - Respiratory Exam Respiratory Exam: NORMAL BREATHING PATTERN - Cardiovascular Exam Cardiovascular Exam: absent: JVD - GI/Abdominal Exam GI & Abdominal Exam: absent: Distended - Rectal Exam Rectal Exam: Deferred - Exam Additional comments: Deferred. - Extremities Exam Extremities Exam: Normal Inspection - Back Exam Back Exam: NORMAL INSPECTION - Neurological Exam Neurological Exam: Alert, Awake, Oriented x3 - Psychiatric Exam Psychiatric exam: Normal Affect, Normal Mood - Skin Skin Exam: Normal Color Assessment and Plan - Assessment and Plan (Free Text) Assessment: Abdominal pain. Rectal bleeding? CHF. PNA. HTN. HLD. DM. Anemia. Plan: Toradol 30 mg IV now. Stool for guiac test. Continue present management as per PMD.
--- NOTE | 2018-01-10 23:38 | PN ---
DATE: 01/10/2018 PULMONARY PROGRESS NOTE REFERRING PHYSICIAN: Dr. Ornelas. SUBJECTIVE: The patient is lying in the bed, head at 45 degrees, on nebulizer treatment. is at bedside. Feels better. Decreased cough. Decreased shortness of breath. No nausea. No vomiting. No diarrhea. No leg pain, no leg swelling. Admits to snoring at nighttime, daytime sleepy and tired. OBJECTIVE: GENERAL: In no acute distress. VITAL SIGNS: Temperature is 98, heart rate is 81, respiratory rate is 20, blood pressure 160/53, pulse ox 97% on 2 liter nasal cannula. HEENT: Moist mucous membrane. Small oral cavity. Crowded airway. NECK: Supple. No JVD. LUNGS: Have a fair airflow with rhonchi. HEART: S1 and S2. ABDOMEN: Soft, nontender, no organomegaly. EXTREMITIES: No edema. NEUROLOGIC: Awake, alert and follows simple commands. MEDICATIONS: He is on Amaryl 2 mg twice a day, hydralazine 50 mg twice a day, aspirin 81 mg daily, Azactam 1 g every 8 hour, Cozaar 100 mg daily, DuoNeb every 6 hour, folic acid 1 mg daily, insulin coverage, iron sucrose 100 mg daily, Lasix 40 mg daily, metoprolol tartrate 50 mg twice a day, ophthalmic eye drops, Protonix 40 mg daily, Zithromax 500 mg daily, Zyvox 600 mg twice a day. LABORATORY DATA: Shows hemoglobin 9.3, hematocrit 28.1, WBC 8.6, platelet count is 146. Sodium 147, potassium 4.1, chloride 110, bicarbonate 23, BUN 36, creatinine 3.5, glucose 71, calcium is 9.6, magnesium 2.4, AST 32, ALT 28, alk phos is 71, ProBNP 901, albumin 3.9. Microbiology: Blood culture and urine culture, there is no growth. IMPRESSION AND PLAN: Pulmonary infiltrate, anemia, chronic obstructive lung disease, hypertension, diabetes, liver cancer, hyperlipidemia, obesity, may have sleep apnea syndrome. Continue bronchodilator. Keep head at 45 degrees, diuretics. Will transfuse today. Encourage continuous positive airway pressure use. Thank you and we will follow with you. Feng Connell MD [facility] # [id number]
[2018-01-11] MEDS: Albuterol-Ipratrop 3 mg / 0.5 (3 ml) UD IH SCH ×5 (02:30→23:48)
--- NOTE | 2018-01-11 02:41 | PN ---
DATE: 01/10/2018 SUBJECTIVE: The patient is 77-year-old male. Patient was seen and examined at the bedside, looking comfortable. No nausea, vomiting or diarrhea. No hematuria or hematochezia. Still coughing a little bit. Having shortness of breath. No fever. No chills. No swelling of the legs. PHYSICAL EXAMINATION: VITAL SIGNS: Temperature 98.1, pulse 78, blood pressure 155/68, respiratory rate 18. HEENT: Head, normocephalic and atraumatic. Eyes, PERRLA. Extraocular muscles intact. Conjunctivae clear. Nose patent. Mucosus membrane moist. NECK: Supple. No carotid bruit. No JVD or thyromegaly. CHEST: Bilaterally symmetrical. HEART: S1, S2 positive. LUNGS: Clear to auscultation. ABDOMEN: Soft. Bowel sounds present. No organomegaly. EXTREMITIES: No edema, no cyanosis. NEUROLOGICAL: Patient is awake, alert. Moving all four extremities. No focal deficits. MEDICATIONS: He is on Amaryl, hydralazine, aspirin, Azactam, Cozaar, DuoNeb, folic acid, insulin, iron, Lasix, Lopressor, Protonix and azithromycin. LABORATORY DATA: White blood cells , hemoglobin qnd hematocritb noted 28.1, platelets 146. Glucose noted . ASSESSMENT AND PLAN: Mr. Cristopher Muñoz is a 77-year-old male with anemia, hyperglycemia, proteinuria, hematuria, urinary tract infection, seen by Dr. Longoria, Infectious Disease. Has systemic inflammatory response syndrome, severe sepsis, bilateral lower lobe healthcare-associated pneumonia, hypertension, dyslipidemia, history of liver cancer status post lobectomy, currently on Zyvox, azithromycin and aztreonam. We will repeat labs as per Infectious Disease. Sputum culture is pending. Seen by Dr. Butterfield, solar photovoltaic designer. Severe anemia status post 2 units of packed red blood cells transfusion. Chronic kidney disease. No evidence of acute myocardial ischemia. Recently, echocardiography was done. We will continue present treatment. Length of time discussion done with patient's and patient himself, nurse practitioner and patient's nurse and social workers. Gastrointestinal, deep vein thrombosis prophylaxis. Continue antibiotics. We will try to do Transitional Care Unit. We will follow up. Nai Ornelas MD [facility]
[2018-01-11] MEDS: Aztreonam 1 Gm in NS 100mL 100 ML IVPB SCH ×3 (06:34→22:01)
[2018-01-11] MEDS: Pantoprazole 40 mg EC Tab PO SCH (06:37)
[2018-01-11] MEDS: Insulin Reg-LOW-Coverage SC SCH ×3 (08:00→17:08)
--- NOTE | 2018-01-11 08:17 | CP.PCM.PN ---
Subjective - Date & Time of Evaluation Date of Evaluation: 01/11/18 Time of Evaluation: 06:50 - Subjective Subjective: Awake, at bedside,complaining of pain on right side of abdomen, no chest pain,no shortness of breath, RN gave toradol Reason for consultation and follow up: cardiac evaluation, shortness of breath, hypertension,hyperlipidemia, liver cancer Seen and examined by me and Dr. Bermudez Objective - Vital Signs/Intake and Output Vital Signs (last 24 hours): Temp Pulse Resp BP Pulse Ox 98.7 F 61 19 188/62 H 97 01/11/18 06:00 01/11/18 06:00 01/11/18 06:00 01/11/18 06:00 01/11/18 06:00 Intake and Output: 01/11/18 01/11/18 06:59 18:59 Intake Total 360 Balance 360 - Medications Medications: Current Medications Albuterol/Ipratropium (Duoneb 3 Mg/0.5 Mg (3 Ml) Ud) 3 ml IH [id number] [facility] Last Admin: 01/11/18 07:53 Dose: 3 ml Aspirin (Aspirin Chewable) 81 mg PO DAILY [facility] Last Admin: 01/10/18 10:30 Dose: 81 mg Azithromycin (Zithromax) 500 mg PO DAILY [facility] PRN Reason: Protocol Stop: 01/15/18 10:01 Last Admin: 01/10/18 10:30 Dose: 500 mg Folic Acid (Folic Acid) 1 mg PO DAILY [facility] Last Admin: 01/10/18 13:04 Dose: 1 mg Furosemide (Lasix) 40 mg IVP DAILY [facility] Last Admin: 01/10/18 10:24 Dose: 40 mg Glimepiride (Amaryl) 2 mg PO BID [facility] Last Admin: 01/10/18 17:47 Dose: Not Given Hydralazine HCl (Apresoline) 50 mg PO BID [facility] Last Admin: 01/10/18 17:46 Dose: 50 mg Aztreonam (Azactam 1 Gm) 100 mls @ 100 mls/hr IVPB Q8 [facility] PRN Reason: Protocol Stop: 01/15/18 14:01 Last Admin: 01/11/18 06:34 Dose: 100 mls/hr Iron Sucrose 100 mg/ Sodium (Chloride) 105 mls @ 210 mls/hr IVPB DAILY [facility] Stop: 01/12/18 10:29 Last Admin: 01/10/18 10:37 Dose: 210 mls/hr Insulin Human Regular (Humulin R Low) 0 units SC ACHS [facility] PRN Reason: Protocol Last Admin: 01/10/18 22:00 Dose: Not Given Linezolid (Zyvox) 600 mg PO BID [facility] PRN Reason: Protocol Stop: 01/17/18 18:01 Last Admin: 01/10/18 17:45 Dose: 600 mg Losartan Potassium (Cozaar) 100 mg PO DAILY [facility] Last Admin: 01/10/18 10:29 Dose: 100 mg Metoprolol Tartrate (Lopressor) 50 mg PO BRKDIN [facility] Last Admin: 01/10/18 17:45 Dose: 50 mg Olopatadine HCl (Patanol 0.1% Opht Soln) 0 ml OU BID PRN PRN Reason: Allergy symptoms Pantoprazole Sodium (Protonix Ec Tab) 40 mg PO 0600 [facility] Last Admin: 01/11/18 06:37 Dose: 40 mg - Labs Labs: 01/10/18 06:00 01/10/18 06:00 PT 12.7 SECONDS (9.4-12.5) H 01/08/18 04:05 INR 1.10 (0.93-1.08) H 01/08/18 04:05 APTT 35.6 Seconds (25.1-36.5) 01/08/18 04:05 Assessment and Plan - Assessment and Plan (Free Text) Assessment: A 77 year old male who came into the ER due to shortness of breath. 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 Plan: Hemoglobin/hematocrit stable post blood transfusion Cardiac status stable No evidence of cardiac ischemia On ASA 81 mg daily,Lasix 40 mg daily,Cozaar 100 mg daily,Lopressor 50 mg BID, Hydralazine 50 mg BID SBP o 150-160's, added Hydralazine 50 mg BID Continue current medications Continue current treatment Will follow up Plan and treatment discussed with Dr. Bermudez
--- NOTE | 2018-01-11 13:24 | PN ---
DATE: 01/11/2018 SUBJECTIVE: The patient is in bed, in no acute distress, nontoxic. No fevers. The patient was seen earlier this morning and with the patient's at the bedside. Uneventful night. Cough is improving. PHYSICAL EXAMINATION: VITAL SIGNS: Temperature is 98, blood pressure is 188/60, respiratory rate of 19, heart rate of 61. HEENT: Examination of HEENT is unremarkable. NECK: Supple. LUNGS: Have decreased breath sounds. HEART: Normal S1 and S2. ABDOMEN: Soft, nontender. LABORATORY DATA: Laboratory examination reveals a white count of 8.6, hemoglobin of 9, platelets of 146. BUN of 36, creatinine of 3.5. Urinalysis is noted. Microbiology reveals the blood cultures are negative. Urine cultures are negative. ASSESSMENT AND PLAN: A 77-year-old male with a systemic inflammatory response syndrome with severe sepsis, bilateral lower lobe healthcare-associated pneumonia, diabetes mellitus, hypertension, dyslipidemia, liver cancer, status post lobectomy, currently on Zyvox, Zithromax and azithromycin. The repeat procalcitonin revealed 0.32. Measured 3 procalcitonins have been negative. Chest x-ray from 01/08/[address] Ornelas's progress note from yesterday is reviewed. Madelyn Robles's progress note is reviewed. Dr. Connell's progress note is also reviewed. With negative 2 procalcitonin, doubt gram negative. Currently, the patient is on aztreonam day #4. We will discontinue the aztreonam after today's last dose and continue the p.o. Zyvox and p.o. Zithromax at this point. We will discontinue the antibiotics within next 24-48 hours. Jad Longoria MD
--- NOTE | 2018-01-11 22:22 | PN ---
DATE: 01/11/2018 PULMONARY PROGRESS NOTE REFERRING PHYSICIAN: Nai Ornelas MD. SUBJECTIVE: He is lying in the bed, head at 45 degrees. Night was unremarkable. Still was not placed on CPAP last night. is at bedside. Has some heartburn. No nausea, no vomiting. No leg pain, no leg swelling. OBJECTIVE: GENERAL: In no acute distress. VITAL SIGNS: Temperature is 98, heart rate is 80, respiratory rate is 20, blood pressure 179/74, pulse ox 98% on room air. HEENT: Moist mucous membranes. Crowded airway. Mallampati score is IV. NECK: Supple. No JVD. LUNGS: Has a fair scattered rhonchi. HEART: S1 and S2. ABDOMEN: Mild epigastric tenderness. EXTREMITIES: There is no edema. NEUROLOGICAL: Awake, alert, follows simple commands. MEDICATIONS: He is on hydralazine 50 mg twice a day, aspirin 81 mg daily, Azactam 1 g IV every 8 hour, Cozaar 100 mg daily, DuoNeb every 6 hour, folic acid 1 mg daily, insulin coverage, IV sucrose 100 mg daily, Lasix 40 mg daily, metoprolol tartrate 50 mg twice a day, Protonix 40 mg daily, Zithromax 500 mg daily, Zyvox 600 mg twice a day. LABORATORY DATA: Reviewed. Blood sugar this afternoon is 74. Blood culture, urine culture, there is no growth. IMPRESSION AND PLAN: Pulmonary infiltrates, anemia, chronic obstructive lung disease, hypertension, diabetes, history of liver cancer, hyperlipidemia, obesity, may have sleep apnea syndrome. Spoke to the patient*s at bedside, spoke to the patient in detail. Encourage BiPAP use. Keep head at 45 degrees. Bronchodilators. Spoke to nursing staff and requested to call respiratory therapist to get CPAP and place tonight. Thank you and we will follow with you. Feng Connell MD
--- NOTE | 2018-01-11 23:37 | PN ---
DATE: 01/11/2018 SUBJECTIVE: The patient is seen and examined on the bedside, looking comfortable. No nausea, vomiting, diarrhea. No hematuria or hematochezia. No swelling of the legs. No chest pain. No palpitation. No headache or dizziness. Yesterday, the patient had episode of abdominal pain, seen by house physician. No fever. No chills. Cough is better. Shortness of breath is better. PHYSICAL EXAMINATION: VITAL SIGNS: Temperature 98, blood pressure 188/60, respiratory rate 19, heart rate 61. HEENT: Head normocephalic, atraumatic. Eyes PERRLA. Extraocular muscles intact. Conjunctivae clear. Nose patent. Mucous membrane moist. NECK: Supple. No carotid bruit. No JVD or thyromegaly. CHEST: Bilaterally symmetrical. HEART: S1 and S2 positive. LUNGS: Clear to auscultation. ABDOMEN: Soft. Bowel sounds positive. No organomegaly. EXTREMITIES: No edema. No cyanosis. NEUROLOGICAL: The patient is awake and alert. Moving all 4 extremities. No focal deficits. LABORATORY DATA: White blood cells 8.6, hemoglobin 9.3, hematocrit of 28.1, platelets 446. Glucose 59, 74, 43. MEDICATIONS: Hydralazine, aspirin, aztreonam, Cozaar, DuoNeb, folic acid, insulin, iron, Lasix, Lopressor, Patanol, Protonix, Zithromax, Zyvox. ASSESSMENT AND PLAN: Mr. 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 Hemoglobin and hematocrit are stable post transfusion. Had 2 units of packed red blood cells. Cardiac davila, stable as per instructional aide. No evidence of cardiac ischemia. Continue aspirin, Lasix, Cozaar, Lopressor, hydralazine. History of pneumonia, getting antibiotics as per Infectious Disease. Repeat prolactin level reveals 0.32. Measured 3 prolactin levels have been negative. Chest x-ray from 01/08/[address] Longoria, with negative two prolactin, doubt gram-negative infection. Currently, the patient is on azithromycin day 4. Discontinue aztreonam after today's last dose. Continue p.o. Zyvox and azithromycin at this point. We will discontinue antibiotics within next 24-48 hours as per Infectious Disease. Meanwhile, we will continue physical therapy. I called Gastroenterology consult because last time the patient signed against medical advice. Need colonoscopy as outpatient and was having abdominal pain yesterday. Meanwhile, repeat labs. We will follow up. Nai Ornelas MD
[2018-01-12] MEDS ORDERED: Dextrose 50% SYRINGE Inj (50 ml) ONE ×3 (00:46→20:17)
[2018-01-12] MEDS ORDERED: Dextrose 50% SYRINGE Inj (50 ml) IVP STA (01:03)
[2018-01-12] MEDS: Albuterol-Ipratrop 3 mg / 0.5 (3 ml) UD IH SCH ×4 (01:09→19:45)
[2018-01-12] MEDS ORDERED: Dextrose 50% SYRINGE Inj (50 ml) IVP ONE ×2 (03:18→06:44)
--- NOTE | 2018-01-12 03:21 | CP.PCM.PN ---
Subjective - Date & Time of Evaluation Date of Evaluation: 01/12/18 Time of Evaluation: 03:19 - Subjective Subjective: S:Earlier , D50% was given because of FSBS of 59 mg%. Nurse now calls and tells that FSBS is < 40 mg %. Seen at bedside. Has no complaints. O: Last Vital Signs 3 Temp 99.1 F 01/12/18 06:00 Pulse 100 H 01/12/18 06:00 Resp 19 01/12/18 06:00 BP 188/74 H 01/12/18 06:00 Pulse Ox 98 01/12/18 06:00 Awake , alert , not in distress. LUNGS:Normal breathing pattern. A:Hypoglycemia. Elevated blood pressure reading. P:Dextrose 50 % , 50 ml IV x 2. Objective - Vital Signs/Intake and Output Vital Signs (last 24 hours): Temp Pulse Resp BP Pulse Ox 98.4 F 80 19 179/74 H 98 01/11/18 18:00 01/11/18 18:00 01/11/18 18:00 01/11/18 18:00 01/11/18 12:00 Intake and Output: 01/11/18 01/12/18 18:59 06:59 Intake Total 900 Balance 900 - Medications Medications: Current Medications Albuterol/Ipratropium (Duoneb 3 Mg/0.5 Mg (3 Ml) Ud) 3 ml IH [id number] [facility] Last Admin: 01/12/18 01:09 Dose: Not Given Aspirin (Aspirin Chewable) 81 mg PO DAILY [facility] Last Admin: 01/11/18 10:13 Dose: 81 mg Azithromycin (Zithromax) 500 mg PO DAILY [facility] PRN Reason: Protocol Stop: 01/15/18 10:01 Last Admin: 01/11/18 10:11 Dose: 500 mg Dextrose (Dextrose 50% Inj) 50 ml IVP ONCE ONE Stop: 01/12/18 03:19 Folic Acid (Folic Acid) 1 mg PO DAILY [facility] Last Admin: 01/11/18 10:14 Dose: 1 mg Furosemide (Lasix) 40 mg IVP DAILY [facility] Last Admin: 01/11/18 10:14 Dose: 40 mg Hydralazine HCl (Apresoline) 50 mg PO TID [facility] Aztreonam (Azactam 1 Gm) 100 mls @ 100 mls/hr IVPB Q8 [facility] PRN Reason: Protocol Stop: 01/15/18 14:01 Last Admin: 01/11/18 22:01 Dose: 100 mls/hr Iron Sucrose 100 mg/ Sodium (Chloride) 105 mls @ 210 mls/hr IVPB DAILY [facility] Stop: 01/12/18 10:29 Last Admin: 01/11/18 10:17 Dose: 210 mls/hr Insulin Human Regular (Humulin R Low) 0 units SC ACHS [facility] PRN Reason: Protocol Last Admin: 01/11/18 17:08 Dose: Not Given Linezolid (Zyvox) 600 mg PO BID [facility] PRN Reason: Protocol Stop: 01/17/18 18:01 Last Admin: 01/11/18 17:41 Dose: 600 mg Losartan Potassium (Cozaar) 100 mg PO DAILY [facility] Last Admin: 01/11/18 10:12 Dose: 100 mg Metoprolol Tartrate (Lopressor) 50 mg PO BRKDIN [facility] Last Admin: 01/11/18 17:40 Dose: 50 mg Olopatadine HCl (Patanol 0.1% Opht Soln) 0 ml OU BID PRN PRN Reason: Allergy symptoms Pantoprazole Sodium (Protonix Ec Tab) 40 mg PO 0600 [facility] Last Admin: 01/11/18 06:37 Dose: 40 mg - Labs Labs: 01/10/18 06:00 01/10/18 06:00 PT 12.7 SECONDS (9.4-12.5) H 01/08/18 04:05 INR 1.10 (0.93-1.08) H 01/08/18 04:05 APTT 35.6 Seconds (25.1-36.5) 01/08/18 04:05
[2018-01-12] MEDS: Aztreonam 1 Gm in NS 100mL 100 ML IVPB SCH (06:33)
[2018-01-12] MEDS: Pantoprazole 40 mg EC Tab PO SCH (06:34)
--- NOTE | 2018-01-12 07:59 | CP.PCM.PN ---
Subjective - Date & Time of Evaluation Date of Evaluation: 01/12/18 Time of Evaluation: 06:55 - Subjective Subjective: Awake,sitting side of bed, at bedside,no chest pain,no shortness of breath , as per RN low glucose, giving Dextrose 50% IV Reason for consultation and follow up: cardiac evaluation, shortness of breath, hypertension,hyperlipidemia, liver cancer Seen and examined by me and Dr. Bermudez Objective - Vital Signs/Intake and Output Vital Signs (last 24 hours): Temp Pulse Resp BP Pulse Ox 99.1 F 100 H 19 188/74 H 98 01/12/18 06:00 01/12/18 06:00 01/12/18 06:00 01/12/18 06:00 01/12/18 06:00 Intake and Output: 01/12/18 01/12/18 06:59 18:59 Intake Total 780 200 Balance 780 200 - Medications Medications: Current Medications Albuterol/Ipratropium (Duoneb 3 Mg/0.5 Mg (3 Ml) Ud) 3 ml IH [id number] [facility] Last Admin: 01/12/18 07:44 Dose: 3 ml Aspirin (Aspirin Chewable) 81 mg PO DAILY [facility] Last Admin: 01/11/18 10:13 Dose: 81 mg Azithromycin (Zithromax) 500 mg PO DAILY [facility] PRN Reason: Protocol Stop: 01/15/18 10:01 Last Admin: 01/11/18 10:11 Dose: 500 mg Folic Acid (Folic Acid) 1 mg PO DAILY [facility] Last Admin: 01/11/18 10:14 Dose: 1 mg Furosemide (Lasix) 40 mg IVP DAILY [facility] Last Admin: 01/11/18 10:14 Dose: 40 mg Hydralazine HCl (Apresoline) 50 mg PO TID [facility] Iron Sucrose 100 mg/ Sodium (Chloride) 105 mls @ 210 mls/hr IVPB DAILY [facility] Stop: 01/12/18 10:29 Last Admin: 01/11/18 10:17 Dose: 210 mls/hr Insulin Human Regular (Humulin R Low) 0 units SC ACHS [facility] PRN Reason: Protocol Last Admin: 01/11/18 17:08 Dose: Not Given Losartan Potassium (Cozaar) 100 mg PO DAILY [facility] Last Admin: 01/12/18 07:00 Dose: 100 mg Metoprolol Tartrate (Lopressor) 50 mg PO BRKDIN [facility] Last Admin: 01/11/18 17:40 Dose: 50 mg Olopatadine HCl (Patanol 0.1% Opht Soln) 0 ml OU BID PRN PRN Reason: Allergy symptoms Pantoprazole Sodium (Protonix Ec Tab) 40 mg PO 0600 [facility] Last Admin: 01/12/18 06:34 Dose: 40 mg - Labs Labs: 01/10/18 06:00 01/10/18 06:00 PT 12.7 SECONDS (9.4-12.5) H 01/08/18 04:05 INR 1.10 (0.93-1.08) H 01/08/18 04:05 APTT 35.6 Seconds (25.1-36.5) 01/08/18 04:05 - Constitutional Appears: No Acute Distress - Head Exam Head Exam: NORMOCEPHALIC - Eye Exam Eye Exam: Normal appearance - ENT Exam ENT Exam: Mucous Membranes Moist - Respiratory Exam Respiratory Exam: Decreased Breath Sounds, NORMAL BREATHING PATTERN - Cardiovascular Exam Cardiovascular Exam: +S1, +S2 - GI/Abdominal Exam GI & Abdominal Exam: Soft, Normal Bowel Sounds - Extremities Exam Extremities Exam: Normal Capillary Refill, Normal Inspection - Neurological Exam Neurological Exam: Alert, Awake, Oriented x3 - Psychiatric Exam Psychiatric exam: Normal Affect, Normal Mood - Skin Skin Exam: Intact, Normal Color, Warm Assessment and Plan - Assessment and Plan (Free Text) Assessment: A 77 year old male who came into the ER due to shortness of breath. 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 Plan: Hypoglycemia this morning, glucose-38mg/dl- given orange juice and D50W IV Repeat glucose 108mg/dl, Insulin dose held Cardiac status stable No evidence of cardiac ischemia On ASA 81 mg daily,Lasix 40 mg daily,Cozaar 100 mg daily,Lopressor 50 mg BID, Still hypertensive inspite of adding Hydralazine 50 mg TID Will add/order Norvasc 10 mg daily Continue current medications Continue current treatment Will follow up Plan and treatment discussed with Dr. Bermudez
--- NOTE | 2018-01-12 09:12 | CP.PCM.CON ---
<Dayanara Valdez - Last Filed: 01/12/18 10:04> History of Present Illness - History of Present Illness History of Present Illness: Gastroenterology Fellow/PGY5 Consult Note 77yo male with PMH of Hepatocellular carcinoma s/p right lobectomy 2016 at [place] with recent finding of spine metastases tentative radiation therapy , Lower GI bleed 2/2 post-polypectomy colonic ulcers 02/2014 (off Plavix since that time), PVD on Aspirin, HTN, HLD, and T2DM presenting with shortness of breath. Active treatment of sepsis 2/2 B/L lower lobe HCAP, anemia s/p 2U pRBCs on 01/09/18, and hypoglycemic episode this morning. GI consultation for GI bleed. Recently left AMA on 12/31/17 with presentation of melena with acute anemia requiring 2U pRBCs s/p EGD showing H. pylori negative gastritis. Patient refused colonoscopy and left AMA. Patient was scheduled for outpatient colonoscopy with Dr. Fuentes on 01/08/18 but missed appointment due to current admission. Admits to having 2 weeks of black stools mixed into brown stools two weeks before initial hospitalization where he left AMA. Since leaving AMA, he had one episode of black stool on Saturday mixed into brown-green stool. Today he had brown loose stool observed in toilet bowl. Denies abdominal pain, BRBPR, hematemesis, coffee-ground emesis, constipation, or unintentional weight loss. Colonoscopy 02/[address] Larsen for lower GI bleed showed multiple post- polypectomy colonic ulcers with no acute bleeding s/p epinephrine injections and /or hemoclips. Colonoscopy 08/[address] Noel showed 8mm ascending polyp and 4mm transverse polyp not removed due to anticoagulation at that time, small/ large diverticulosis, and internal hemorrhoids. Endorses repeat colonoscopy [address] Larsen stated to be normal. Family History- denies stomach cancer, colon cancer, liver cancer Social History-prior 1/4 ppdx20 years -quit 2.5yrs, prior heavy and social ETOH [id number], quit 2.5yrs, denies illicit drug use Surgical History- closed reduction of nasoseptal fracture 07/2016 Review of Systems - Review of Systems Review of Systems: 12-point review of systems negative except for as above Past Patient History - Infectious Disease Hx of Infectious Diseases: None - Past Medical History & Family History Past Medical History?: Yes - Past Social History Smoking Status: Former Smoker - CARDIAC Hx Hypercholesterolemia: Yes Hx Hypertension: Yes - PULMONARY Hx Respiratory Disorders: Yes (USED TO SMOKE CIGARETTES) - NEUROLOGICAL Hx Paralysis: No - HEENT Hx HEENT Problems: Yes Hx Cataracts: Yes (r eye sx, sched left eye for next month) Other/Comment: wears eyeglasses for reading - RENAL Hx Chronic Kidney Disease: No - ENDOCRINE/METABOLIC Hx Diabetes Mellitus Type 2: Yes - HEMATOLOGICAL/ONCOLOGICAL Hx Blood Transfusions: No Hx Blood Transfusion Reaction: No - INTEGUMENTARY Hx Dermatological Problems: No - MUSCULOSKELETAL/RHEUMATOLOGICAL Hx Musculoskeletal Disorders: Yes - GASTROINTESTINAL Hx Gastrointestinal Disorders: Yes (CONSTIPATION) Other/Comment: Liver CA - GENITOURINARY/GYNECOLOGICAL Hx Genitourinary Disorders: No - PSYCHIATRIC Hx Substance Use: No - SURGICAL HISTORY Other/Comment: Liver lobectomy - ANESTHESIA Hx Anesthesia Reactions: No Hx Malignant Hyperthermia: No Meds Allergies/Adverse Reactions: Allergies Allergy/AdvReac Type Severity Reaction Status Date / Time amoxicillin AdvReac VOMITING Verified 01/08/18 12:48 - Medications Medications: Current Medications Albuterol/Ipratropium (Duoneb 3 Mg/0.5 Mg (3 Ml) Ud) 3 ml [id number] [facility] Last Admin: 01/12/18 07:44 Dose: 3 ml Aspirin (Aspirin Chewable) 81 mg PO DAILY [facility] Last Admin: 01/11/18 10:13 Dose: 81 mg Azithromycin (Zithromax) 500 mg PO DAILY [facility] PRN Reason: Protocol Stop: 01/15/18 10:01 Last Admin: 01/11/18 10:11 Dose: 500 mg Folic Acid (Folic Acid) 1 mg PO DAILY [facility] Last Admin: 01/11/18 10:14 Dose: 1 mg Furosemide (Lasix) 40 mg IVP DAILY [facility] Last Admin: 01/11/18 10:14 Dose: 40 mg Hydralazine HCl (Apresoline) 50 mg PO TID [facility] Iron Sucrose 100 mg/ Sodium (Chloride) 105 mls @ 210 mls/hr IVPB DAILY [facility] Stop: 01/12/18 10:29 Last Admin: 01/11/18 10:17 Dose: 210 mls/hr Dextrose (Dextrose 5% In Water 1000 Ml) 1,000 mls @ 30 mls/hr IV .Q24H [facility] Insulin Human Regular (Humulin R Low) 0 units SC ACHS [facility] PRN Reason: Protocol Last Admin: 01/11/18 17:08 Dose: Not Given Losartan Potassium (Cozaar) 100 mg PO DAILY [facility] Last Admin: 01/12/18 07:00 Dose: 100 mg Metoprolol Tartrate (Lopressor) 50 mg PO BRKDIN [facility] Last Admin: 01/11/18 17:40 Dose: 50 mg Olopatadine HCl (Patanol 0.1% Opht Soln) 0 ml OU BID PRN PRN Reason: Allergy symptoms Pantoprazole Sodium (Protonix Ec Tab) 40 mg PO 0600 [facility] Last Admin: 01/12/18 06:34 Dose: 40 mg Physical Exam - Constitutional Appears: Non-toxic, No Acute Distress - Head Exam Head Exam: ATRAUMATIC, NORMOCEPHALIC - Eye Exam Eye Exam: EOMI, PERRL Pupil Exam: PERRL. absent: Miosis, Mydriatic - ENT Exam ENT Exam: Mucous Membranes Moist, Normal Oropharynx - Neck Exam Neck exam: Positive for: Full Rom, Normal Inspection - Respiratory Exam Respiratory Exam: Clear to Auscultation Bilateral. absent: Rales, Rhonchi, Wheezes - Cardiovascular Exam Cardiovascular Exam: RRR, +S1, +S2. absent: Gallop, Rubs - GI/Abdominal Exam GI & Abdominal Exam: Normal Bowel Sounds, Soft. absent: Distended, Firm, Guarding, Organomegaly, Rebound, Rigid, Tenderness - Rectal Exam Additional comments: brown stool - Extremities Exam Extremities exam: Positive for: normal inspection. Negative for: pedal edema - Neurological Exam Neurological exam: Alert, Oriented x3 - Psychiatric Exam Psychiatric exam: Normal Affect, Normal Mood - Skin Skin Exam: Dry, Intact, Normal Color, Warm Results - Vital Signs Recent Vital Signs: Last Vital Signs Temp 99.1 F 01/12/18 06:00 Pulse 100 H 01/12/18 06:00 Resp 19 01/12/18 06:00 BP 188/74 H 01/12/18 06:00 Pulse Ox 98 01/12/18 06:00 - Labs Result Diagrams: 01/10/18 06:00 01/10/18 06:00 Labs: Laboratory Results - last 24 hr 01/11/18 01/11/18 01/11/18 11:19 16:39 17:25 POC Glucose (mg/dL) 83 43 L 74 01/11/18 01/12/18 01/12/18 20:59 00:43 01:28 POC Glucose (mg/dL) 59 L 24 L* 90 01/12/18 01/12/18 01/12/18 03:15 04:22 06:38 POC Glucose (mg/dL) 40 L 73 36 L* 01/12/18 07:47 POC Glucose (mg/dL) 108 Assessment & Plan - Assessment and Plan (Free Text) Assessment: 77yo male with PMH of Hepatocellular carcinoma s/p right lobectomy 2016 at [place] with recent finding of spine metastases tentative radiation therapy , Lower GI bleed 2/2 post-polypectomy colonic ulcers 02/2014 (off Plavix since that time), PVD on Aspirin, HTN, HLD, and T2DM presenting with shortness of breath. Active treatment of sepsis 2/2 B/L lower lobe HCAP, anemia s/p 2U pRBCs on 01/09/18, and hypoglycemic episode this morning. GI consultation for GI bleed. Recently left AMA on 12/31/17 with presentation of melena with acute anemia requiring 2U pRBCs s/p EGD showing H. pylori negative gastritis. Patient refused colonoscopy and left AMA. Patient was scheduled for outpatient colonoscopy with Dr. Fuentes on 01/08/18 but missed appointment due to current admission. Colonoscopy 02/[address] Larsen for lower GI bleed showed multiple post- polypectomy colonic ulcers with no acute bleeding s/p epinephrine injections and /or hemoclips. Colonoscopy 08/[address] Noel showed 8mm ascending polyp and 4mm transverse polyp not removed due to anticoagulation at that time, small/ large diverticulosis, and internal hemorrhoids. Endorses repeat colonoscopy [address] Larsen stated to be normal. Plan: -history of Lower GI bleed 2013 2/2 post-polypectomy ulcers -recent melena and leaving AMA 12/31/17- negative EGD -possible GI Bleed 2/2 AVMs/polyps/diverticular/hemorrhoidal -s/p 2U pRBCs on 01/09/18 Hb 7.4 with appropriate response to 9.3 -brown stool this AM -no overt GI blood loss -Previously scheduled outpatient colonoscopy with Dr. Fuentes on 01/08/18 missed due to current admission -active treatment of HCAP on antibiotics and pulmonary toilet -medical optimization prior to rescheduling colonoscopy, if recurrent bleeding inpatient-consider inpatient evaluation -ordered repeat CBC -if H/H remains stable, plan for rescheduling outpatient colonoscopy <Anayeli Sauer - Last Filed: 01/12/18 15:34> Meds - Medications Medications: Current Medications Albuterol/Ipratropium (Duoneb 3 Mg/0.5 Mg (3 Ml) Ud) 3 ml IH [id number] [facility] Last Admin: 01/12/18 13:23 Dose: 3 ml Amlodipine Besylate (Norvasc) 10 mg PO DAILY [facility] Last Admin: 01/12/18 10:21 Dose: 10 mg Aspirin (Aspirin Chewable) 81 mg PO DAILY [facility] Last Admin: 01/12/18 10:02 Dose: 81 mg Azithromycin (Zithromax) 500 mg PO DAILY [facility] PRN Reason: Protocol Stop: 01/15/18 10:01 Last Admin: 01/12/18 10:21 Dose: 500 mg Folic Acid (Folic Acid) 1 mg PO DAILY [facility] Last Admin: 01/12/18 10:00 Dose: 1 mg Hydralazine HCl (Apresoline) 50 mg PO TID [facility] Last Admin: 01/12/18 14:28 Dose: 50 mg Dextrose/Sodium Chloride (Dextrose 5%/0.9% Ns 1000 Ml) 1,000 mls @ 100 mls/hr IV .Q10H [facility] Last Admin: 01/12/18 14:29 Dose: 100 mls/hr Insulin Human Regular (Humulin R Low) 0 units SC ACHS [facility] PRN Reason: Protocol Last Admin: 01/12/18 12:42 Dose: Not Given Metoprolol Tartrate (Lopressor) 50 mg PO BRKDIN [facility] Last Admin: 01/12/18 10:02 Dose: 50 mg Olopatadine HCl (Patanol 0.1% Opht Soln) 0 ml OU BID PRN PRN Reason: Allergy symptoms Pantoprazole Sodium (Protonix Ec Tab) 40 mg PO 0600 [facility] Last Admin: 01/12/18 06:34 Dose: 40 mg Results - Vital Signs Recent Vital Signs: Last Vital Signs Temp 98.2 F 01/12/18 12:00 Pulse 72 01/12/18 14:28 Resp 20 01/12/18 12:00 BP 172/64 H 01/12/18 14:28 Pulse Ox 98 01/12/18 06:00 - Labs Result Diagrams: 01/12/18 10:40 01/12/18 10:40 Labs: Laboratory Results - last 24 hr 01/11/18 01/11/18 01/11/18 16:39 17:25 20:59 WBC RBC Hgb Hct MCV MCH MCHC RDW Plt Count MPV Gran % Lymph % (Auto) Hudson % (Auto) Eos % (Auto) Baso % (Auto) Gran # Lymph # (Auto) Hudson # (Auto) Eos # (Auto) Baso # (Auto) PT INR Sodium Potassium Chloride Carbon Dioxide Anion Gap BUN Creatinine Est GFR ( Amer) Est GFR (Non-Af Amer) POC Glucose (mg/dL) 43 L 74 59 L Random Glucose Calcium Total Bilirubin AST ALT Alkaline Phosphatase Total Protein Albumin Globulin Albumin/Globulin Ratio 01/12/18 01/12/18 01/12/18 00:43 01:28 03:15 WBC RBC Hgb Hct MCV MCH MCHC RDW Plt Count MPV Gran % Lymph % (Auto) Hudson % (Auto) Eos % (Auto) Baso % (Auto) Gran # Lymph # (Auto) Hudson # (Auto) Eos # (Auto) Baso # (Auto) PT INR Sodium Potassium Chloride Carbon Dioxide Anion Gap BUN Creatinine Est GFR ( Amer) Est GFR (Non-Af Amer) POC Glucose (mg/dL) 24 L* 90 40 L Random Glucose Calcium Total Bilirubin AST ALT Alkaline Phosphatase Total Protein Albumin Globulin Albumin/Globulin Ratio 01/12/18 01/12/18 01/12/18 04:22 06:38 07:47 WBC RBC Hgb Hct MCV MCH MCHC RDW Plt Count MPV Gran % Lymph % (Auto) Hudson % (Auto) Eos % (Auto) Baso % (Auto) Gran # Lymph # (Auto) Hudson # (Auto) Eos # (Auto) Baso # (Auto) PT INR Sodium Potassium Chloride Carbon Dioxide Anion Gap BUN Creatinine Est GFR ( Amer) Est GFR (Non-Af Amer) POC Glucose (mg/dL) 73 36 L* 108 Random Glucose Calcium Total Bilirubin AST ALT Alkaline Phosphatase Total Protein Albumin Globulin Albumin/Globulin Ratio 01/12/18 01/12/18 01/12/18 10:40 10:40 10:40 WBC 9.1 RBC 3.19 L Hgb 8.9 L Hct 27.0 L MCV 84.6 MCH 27.9 MCHC 33.0 RDW 15.8 H Plt Count 134 MPV 10.4 Gran % 76.4 H Lymph % (Auto) 8.6 L Hudson % (Auto) 13.3 H Eos % (Auto) 1.5 Baso % (Auto) 0.2 Gran # 6.96 H Lymph # (Auto) 0.8 L Hudson # (Auto) 1.2 H Eos # (Auto) 0.1 Baso # (Auto) 0.02 PT 15.0 H INR 1.30 H Sodium 142 Potassium 4.4 Chloride 106 Carbon Dioxide 21 Anion Gap 20 BUN 37 H Creatinine 4.1 H Est GFR ( Amer) 17 Est GFR (Non-Af Amer) 14 POC Glucose (mg/dL) Random Glucose 72 Calcium 9.2 Total Bilirubin 0.2 AST 29 ALT 28 Alkaline Phosphatase 62 Total Protein 6.6 Albumin 3.7 Globulin 2.9 Albumin/Globulin Ratio 1.3 01/12/18 11:43 WBC RBC Hgb Hct MCV MCH MCHC RDW Plt Count MPV Gran % Lymph % (Auto) Hudson % (Auto) Eos % (Auto) Baso % (Auto) Gran # Lymph # (Auto) Hudson # (Auto) Eos # (Auto) Baso # (Auto) PT INR Sodium Potassium Chloride Carbon Dioxide Anion Gap BUN Creatinine Est GFR ( Amer) Est GFR (Non-Af Amer) POC Glucose (mg/dL) 65 Random Glucose Calcium Total Bilirubin AST ALT Alkaline Phosphatase Total Protein Albumin Globulin Albumin/Globulin Ratio Attending/Attestation - Attestation I have personally seen and examined this patient.: Yes I have fully participated in the care of the patient.: Yes I have reviewed all pertinent clinical information: Yes Notes (Text): 01/12/18 15:29 This is a 77 yo male with PMH of Hepatocellular carcinoma s/p right lobectomy 2015 at [place] with recent finding of spine metastases tentative radiation therapy, and s/p lower GI bleed 2/2 post-polypectomy colonic ulcers 02/2014 (off Plavix since that time), PVD on Aspirin, HTN, HLD, and T2DM presenting with shortness of breath and B/L PNA. s/p EGD on 12/31/17 showing H. pylori negative gastritis. Patient refused colonoscopy and left AMA. Patient was scheduled for outpatient colonoscopy with Dr. Fuentes on 01/08/18 but missed appointment due to current admission. No overt GIB. H/Hct at baseline. Will reschedule outpatient colonoscopy once PNA resolves and he is medically optimized for anesthesia and prep. Thank you for letting us participate in the care of your patient
[2018-01-12] MEDS: Insulin Reg-LOW-Coverage SC SCH ×2 (09:49→12:42)
[2018-01-12 10:52] LABS: BASO # 0.02 K/mm3 (0.0-2.0); BASO % 0.2 % (0.0-3.0); EOS # 0.1 (0.0-0.7); EOS % 1.5 % (1.5-5.0); GRAN # 6.96 (1.4-6.5); GRAN % 76.4 % (50.0-68.0); HEMOGLOBIN 8.9 g/dL (14.0-18.0); LYMPH # 0.8 (1.2-3.4); LYMPH % 8.6 % (22.0-35.0); MEAN CELL VOLUME 84.6 fl (80.0-105.0); MEAN CORPUSCULAR HEMOGLOBIN 27.9 pg (25.0-35.0); MEAN PLATELET VOLUME 10.4 fl (7.0-11.0); MONO # 1.2 (0.1-0.6); MONO % 13.3 % (1.0-6.0); RBC 3.19 10^6/uL (3.5-6.1); RED CELL DISTRIBUTION WIDTH 15.8 % (11.5-14.5); WHITE BLOOD COUNT 9.1 10^3/ul (4.5-11.0)
[2018-01-12 10:58] LABS: ALB/GLOB RATIO 1.3 (1.1-1.8); ALBUMIN 3.7 g/dL (3.0-4.8); CALCIUM 9.2 mg/dL (8.4-10.5)
[2018-01-12 10:59] LABS: INR 1.3 (0.93-1.08)
[2018-01-12] MEDS ORDERED: Sodium Chloride 0.9% 1,000 ML IV SCH (12:30)
[2018-01-12 12:40] VITALS: RESP 20
--- NOTE | 2018-01-12 12:57 | PN ---
DATE: 01/12/2018 SUBJECTIVE: The patient is in bed in no acute distress, nontoxic. PHYSICAL EXAMINATION VITAL SIGNS: Temperature is 99, blood pressure is 180/70, respiratory rate of 19, heart rate of 100. HEENT: Unremarkable. NECK: Supple. LUNGS: Have decreased breath sounds. HEART: Normal S1 and S2. ABDOMEN: Soft, nontender. LABORATORY DATA: Reveals a white count of 8.6, hemoglobin of 9, platelets of 146. Chemistries reveals the patient to have a BUN of 36, creatinine of 3.5. Urinalysis is noted. Microbiology reveals the blood cultures are negative. Urine cultures are negative. ASSESSMENT AND PLAN: This is a 77-year-old male who was seen in room 274, bed 2. The patient's is asleep in the chair next to him, with severe sepsis with bilateral lower lobe healthcare-associated pneumonia, also with diabetes mellitus, hypertension, dyslipidemia and liver cancer status post lobectomy. Currently, the patient is on day #5 of Zithromax and completed antibiotics. The patient is also on aztreonam and Zyvox negative procalcitonin, we will discontinue the aztreonam. We will complete 5-7 days of azithromycin. Long-term prognosis is quite poor. We will also discontinue the Zyvox, on azithromycin day #5 of 5-[address] Dubon's note is reviewed. The patient with a period of hypoglycemia. Jad Longoria MD
[2018-01-12] MEDS: Dextrose 5%/0.9% NS 1,000 ML IV SCH (14:29)
--- NOTE | 2018-01-12 17:39 | PN ---
DATE: 01/12/2018 PULMONARY PROGRESS NOTE REFERRING PHYSICIAN: Nai Ornelas MD. SUBJECTIVE: Sitting at the side of the bed. Night was unremarkable. No headache, no rhinitis. No chest pain today. No abdominal pain. Has polyuria. No leg pain or leg swelling. PHYSICAL EXAMINATION: GENERAL: In no acute distress. VITAL SIGNS: Temperature is 98, heart rate is 72, respiratory rate is 20, blood pressure 172/64, pulse ox 98% on nasal cannula. HEENT: Moist mucous membrane. Crowded airway. Mallampati score is 4. NECK: Supple. No JVD. LUNGS: Have a few scattered rhonchi. HEART: S1 and S2. ABDOMEN: Soft, nontender, nondistended. EXTREMITIES: No edema. NEUROLOGIC: Awake, alert, and follows simple command. MEDICATIONS: He is on hydralazine 50 mg three times a day, aspirin 81 mg daily, DuoNeb every 6 hours, folic acid 1 mg daily, insulin coverage, metoprolol tartrate 50 mg twice a day, Norvasc 10 mg daily, Protonix 40 mg daily, and Zithromax 500 mg daily. LABORATORY DATA: Shows hemoglobin 8.9, hematocrit 27, WBC 9.1, platelet count is 134. INR 1.3. Sodium 142, potassium 4.4, chloride 106, bicarbonate 21, BUN 37, creatinine 4.1, glucose is 41, calcium is 9.2. AST 29, ALT 28, alkaline phosphatase is 62. Albumin is 3.7. Microbiology: Blood culture is negative. Urine culture is negative. IMPRESSION AND PLAN: Pulmonary infiltrate, anemia, chronic obstructive lung disease, hypertension, history of diabetes, metastatic liver cancer with metastasis to the spine requiring radiation therapy, hyperlipidemia, obesity, sleep apnea syndrome, renal failure. Case discussed with nursing staff. IV fluids changed to D5 normal saline 100 mL/hour. PRATIK and ARB discontinued. We will also discontinue Lasix for now. Continue IV fluids. Continue bronchodilator. Watch glucose closely. Probably, this is a liver dysfunction. We will get endocrinology input. Follow up labs in the morning. Follow up electrolytes, BUN and creatinine. Thank you and we will follow with you. Feng Connell MD [facility] # [id number]
--- NOTE | 2018-01-12 22:58 | CP.PCM.PN ---
Subjective - Date & Time of Evaluation Date of Evaluation: 01/12/18 Time of Evaluation: 22:57 - Subjective Subjective: S:Seen at bedside. Feels anxious. Has no sob, no chest pain. Medical record was reviewed. O: Last Vital Signs 3 Temp 98.2 F 01/12/18 18:00 Pulse 88 01/12/18 18:00 Resp 20 01/12/18 18:00 BP 169/62 H 01/12/18 18:00 Pulse Ox 98 01/12/18 06:00 Awake , alert , not in distress. LUNGS: Normal breathing pattern. A:anxiety. P: Xanax 0.5 mg PO x 1. Objective - Vital Signs/Intake and Output Vital Signs (last 24 hours): Temp Pulse Resp BP Pulse Ox 98.2 F 88 20 169/62 H 98 01/12/18 18:00 01/12/18 18:00 01/12/18 18:00 01/12/18 18:00 01/12/18 06:00 Intake and Output: 01/12/18 01/13/18 18:59 06:59 Intake Total 1240 Output Total 6 Balance 1234 - Medications Medications: Current Medications Albuterol/Ipratropium (Duoneb 3 Mg/0.5 Mg (3 Ml) Ud) 3 ml IH [id number] [facility] Last Admin: 01/12/18 19:45 Dose: Not Given Amlodipine Besylate (Norvasc) 10 mg PO DAILY [facility] Last Admin: 01/12/18 10:21 Dose: 10 mg Aspirin (Aspirin Chewable) 81 mg PO DAILY [facility] Last Admin: 01/12/18 10:02 Dose: 81 mg Azithromycin (Zithromax) 500 mg PO DAILY [facility] PRN Reason: Protocol Stop: 01/15/18 10:01 Last Admin: 01/12/18 10:21 Dose: 500 mg Folic Acid (Folic Acid) 1 mg PO DAILY [facility] Last Admin: 01/12/18 10:00 Dose: 1 mg Hydralazine HCl (Apresoline) 50 mg PO TID [facility] Last Admin: 01/12/18 17:31 Dose: 50 mg Dextrose/Sodium Chloride (Dextrose 5%/0.9% Ns 1000 Ml) 1,000 mls @ 100 mls/hr IV .Q10H [facility] Last Admin: 01/12/18 14:29 Dose: 100 mls/hr Metoprolol Tartrate (Lopressor) 50 mg PO BRKDIN [facility] Last Admin: 01/12/18 17:33 Dose: 50 mg Olopatadine HCl (Patanol 0.1% Opht Soln) 0 ml OU BID PRN PRN Reason: Allergy symptoms Pantoprazole Sodium (Protonix Ec Tab) 40 mg PO 0600 [facility] Last Admin: 01/12/18 06:34 Dose: 40 mg - Labs Labs: 01/12/18 10:40 01/12/18 10:40 PT 15.0 SECONDS (9.4-12.5) H 01/12/18 10:40 INR 1.30 (0.93-1.08) H 01/12/18 10:40 APTT 35.6 Seconds (25.1-36.5) 01/08/18 04:05
[2018-01-13] MEDS: Albuterol-Ipratrop 3 mg / 0.5 (3 ml) UD IH SCH ×4 (02:15→13:20)
--- NOTE | 2018-01-13 03:32 | CP.PCM.PN ---
Subjective - Date & Time of Evaluation Date of Evaluation: 01/13/18 Time of Evaluation: 03:31 - Subjective Subjective: Xanax 0.5 mg PO was ordered for anxiety. Patient stable. Objective - Vital Signs/Intake and Output Vital Signs (last 24 hours): Temp Pulse Resp BP Pulse Ox 98.7 F 86 20 169/62 H 98 01/13/18 00:00 01/13/18 00:00 01/13/18 00:00 01/12/18 18:00 01/13/18 00:00 Intake and Output: 01/12/18 01/13/18 18:59 06:59 Intake Total 1240 Output Total 6 Balance 1234 - Medications Medications: Current Medications Albuterol/Ipratropium (Duoneb 3 Mg/0.5 Mg (3 Ml) Ud) 3 ml IH [id number] [facility] Last Admin: 01/13/18 02:15 Dose: Not Given Amlodipine Besylate (Norvasc) 10 mg PO DAILY [facility] Last Admin: 01/12/18 10:21 Dose: 10 mg Aspirin (Aspirin Chewable) 81 mg PO DAILY [facility] Last Admin: 01/12/18 10:02 Dose: 81 mg Azithromycin (Zithromax) 500 mg PO DAILY [facility] PRN Reason: Protocol Stop: 01/15/18 10:01 Last Admin: 01/12/18 10:21 Dose: 500 mg Folic Acid (Folic Acid) 1 mg PO DAILY [facility] Last Admin: 01/12/18 10:00 Dose: 1 mg Hydralazine HCl (Apresoline) 50 mg PO TID [facility] Last Admin: 01/12/18 17:31 Dose: 50 mg Dextrose/Sodium Chloride (Dextrose 5%/0.9% Ns 1000 Ml) 1,000 mls @ 100 mls/hr IV .Q10H [facility] Last Admin: 01/12/18 14:29 Dose: 100 mls/hr Metoprolol Tartrate (Lopressor) 50 mg PO BRKDIN [facility] Last Admin: 01/12/18 17:33 Dose: 50 mg Olopatadine HCl (Patanol 0.1% Opht Soln) 0 ml OU BID PRN PRN Reason: Allergy symptoms Pantoprazole Sodium (Protonix Ec Tab) 40 mg PO 0600 [facility] Last Admin: 01/12/18 06:34 Dose: 40 mg - Labs Labs: 01/12/18 10:40 01/12/18 10:40 PT 15.0 SECONDS (9.4-12.5) H 01/12/18 10:40 INR 1.30 (0.93-1.08) H 01/12/18 10:40 APTT 35.6 Seconds (25.1-36.5) 01/08/18 04:05
--- NOTE | 2018-01-13 05:49 | CON ---
DATE: LOCATION: In room 274. HISTORY OF PRESENT ILLNESS: This is a 77-year-old male with known history of type 2 diabetes and hypertension, presenting here with progressive shortness of breath and nonproductive cough with underlying pneumonitis and was evaluated to be in congestive heart failure and is being referred now for diabetic evaluation and management. Apparently today he developed sudden symptomatic bouts of hypoglycemia and was taken off oral hypoglycemic therapy as given. PAST MEDICAL HISTORY: As mentioned above, history of type 2 diabetes, previously on Amaryl given as 2 mg b.i.d., history of hypertension and dyslipidemia, history of coronary artery disease with underlying peripheral arterial disease and vasculopathy. History of chronic obstructive lung disease with previous admissions for exacerbations of the same. He also has previous admissions for congestive heart failure as noted. There is also history of chronic anemia with underlying previous history of liver carcinoma and underwent a lobectomy thereof. FAMILY HISTORY: Positive for hypertension and diabetes. SOCIAL HISTORY: The patient admits to previous nicotine dependence, but quit smoking a few years ago. He has a supportive family, otherwise. REVIEW OF SYSTEMS: As mentioned above. Admits to generalized body weakness with progressive bouts of dizziness and lightheadedness, and increasing hypersomnolence and lethargy. Also admits to bifrontal headaches and visual blurring as noted. No chest pains, but admits to progressive shortness of breath, initially on exertion and then at rest with paroxysmal nocturnal dyspnea. Also admits to productive cough worsening until the time of admission. His oral intake has been variable with nausea, dyspepsia and vague upper abdominal pains. Also admits to habitual constipation. PHYSICAL EXAMINATION: GENERAL: Is an average built male, in no apparent distress. VITAL SIGNS: Blood pressure of 140/80, pulse of 100 beats per minute and regular, temperature 98, respirations 20, height is 61, weight is 203 pounds. HEENT: Head normocephalic. Eyes anicteric with pale conjunctivae. Funduscopy impossible at this time. Ears, nose and throat otherwise normal. NECK: Supple. Thyroid gland is normal in size. No carotid bruits or cervical adenopathy. CARDIOPULMONARY: Some adynamic precordium. S1 and S2 is rapid and regular. Lungs show scattered rhonchi and bibasal rales. ABDOMEN: Flat, soft, with positive bowel sounds. EXTREMITIES: There is +2 bipedal edema. Pulses are +2 bilaterally. LABORATORY DATA: His chemistries initially showed a WBC of 14.2, hemoglobin of 7.9, hematocrit of 24, platelets 158. His chemistries initially showed a BUN of 43, sodium 145, potassium 4.4, chloride 110, CO2 of 18, glucose 159, and creatinine 3.3. His glucose levels today had dropped to 41 with a repeat level of 71, and the last glucose tonight is 50 mg/dL, with worsening creatinine of 4.1 as noted today. The phone technician glucose today was 24 with a repeat level of 40 mg/dL. ASSESSMENT: This is a 77-year-old male with uncontrolled type 2 diabetes with supervening symptomatic hypoglycemia and associated neuroglycopenic and hyperadrenergic manifestations of the same. This is most likely related to the underlying liver carcinoma with impaired gluconeogenesis and glycogenolysis producing the episodic bouts of symptomatic hypoglycemia as noted thereof. Moreover, he was also previously on oral hypoglycemic therapy which could contribute to the aforementioned, especially in the light of extremely poor and variable oral intake at this time. He has significant history of diabetic retinopathy, polyneuropathy and nephropathy, with progressive renal insufficiency and advanced azotemia as noted. Moreover, he also has diabetic macrovascular complications of coronary artery disease and congestive heart failure with underlying peripheral arterial disease and vasculopathy. PLAN OF MANAGEMENT: We will continue the dextrose infusion with D5 normal saline as given and D50 bolus injections for glucose levels below 70 as ordered. We will also continue the fingerstick glucose testing with no further insulin coverage to be given to obviate further hypoglycemia. We will encourage a high-protein frequent small feedings to obviate functional bouts of hypoglycemic episodes thereof. Serum insulin and C-peptide level will be ordered to exclude the remote possibilities of insulin excess syndromes, although quite unlikely at this point in time. A hemoglobin A1c will be done to confirm his prior glycemic control and baseline thyroid function studies and serum cortisol levels will be obtained. We will obtain serial chemistries and supplement accordingly needed. We will follow. Gertrude Burkett MD
[2018-01-13] MEDS: Pantoprazole 40 mg EC Tab PO SCH (07:10)
--- NOTE | 2018-01-13 07:40 | PN ---
DATE: 01/12/2018 SUBJECTIVE: The patient is a 77-year-old male. Patient was seen and examined on the bedside doing his breakfast. was sitting on the bedside the patient has episodes of hypoglycemia and dextrose given. Even the patient is not taking hypoglycemic medications, but still glucose is dropping, may be not eating very well. We will change the patient's diet to regular heart-healthy diet and not diabetic diet and we will increase the frequency of the snacks. PHYSICAL EXAMINATION: VITAL SIGNS: Temperature 98, heart rate 72, respiratory rate 20, blood pressure 172/54, pulse oximetry 98% on nasal cannula. HEENT: Head normocephalic, atraumatic. Eyes, PERRLA. Extraocular muscles intact. Conjunctivae clear. Nose patent. Mucous membrane moist. NECK: Supple. No carotid bruit. No JVD or thyromegaly. CHEST: Bilaterally symmetrical. HEART: S1 and S2 positive. LUNGS: Has a few scattered rhonchi. ABDOMEN: Soft, nontender. No organomegaly. EXTREMITIES: No edema. No cyanosis. NEUROLOGIC: Patient is awake and alert. Follows simple commands. MEDICATIONS: Hydralazine, DuoNeb, metoprolol, Norvasc, Protonix, azithromycin. LABORATORY DATA: Shows hemoglobin 8.9, hematocrit 27, white blood cell 9.1, platelets 134. Sodium 142, potassium 4.4, BUN 37, creatinine 4.1. AST 29, ALT 28. ASSESSMENT AND PLAN: The patient is a 77-year-old male. Patient was seen and examined on the bedside doing his breakfast. was sitting on the bedside the patient has episodes of hypoglycemia and dextrose given. Even the patient is not taking hypoglycemic medications, but still glucose is dropping, may be not eating very well. We will change the patient's diet to regular heart-healthy diet and not diabetic diet and we will increase the frequency of the snacks.had h/o chf , liver ca , s/ p surgery , came pneumonia , h/o gi bleeding , will f/u Nai Ornelas MD [facility]
[2018-01-13 07:48] LABS: ALB/GLOB RATIO 1.3 (1.1-1.8); ALBUMIN 3.6 g/dL (3.0-4.8); CALCIUM 8.8 mg/dL (8.4-10.5)
[2018-01-13 09:06] VITALS: O2SAT 99
[2018-01-13] MEDS: Dextrose 5%/0.9% NS 1,000 ML IV SCH ×2 (12:13→12:15)
[2018-01-13 12:15] VITALS: BP 192/66; PULSE 75
[2018-01-13 12:27] VITALS: TEMP 98.7
--- NOTE | 2018-01-13 19:11 | CP.PCM.PN ---
Subjective - Date & Time of Evaluation Date of Evaluation: 01/13/18 Time of Evaluation: 14:45 - Subjective Subjective: Patient to be discharged today, no fevers. Objective - Vital Signs/Intake and Output Vital Signs (last 24 hours): Temp Pulse Resp BP Pulse Ox 99.2 F 80 20 150/78 99 01/13/18 06:00 01/13/18 06:00 01/13/18 06:00 01/13/18 08:50 01/13/18 06:00 Intake and Output: 01/13/18 01/13/18 06:59 18:59 Intake Total 3340 Balance 3340 - Medications Medications: Current Medications Albuterol/Ipratropium (Duoneb 3 Mg/0.5 Mg (3 Ml) Ud) 3 ml IH [id number] [facility] Last Admin: 01/13/18 07:50 Dose: Not Given Amlodipine Besylate (Norvasc) 10 mg PO DAILY [facility] Last Admin: 01/12/18 10:21 Dose: 10 mg Aspirin (Aspirin Chewable) 81 mg PO DAILY [facility] Last Admin: 01/12/18 10:02 Dose: 81 mg Azithromycin (Zithromax) 500 mg PO DAILY [facility] PRN Reason: Protocol Stop: 01/15/18 10:01 Last Admin: 01/12/18 10:21 Dose: 500 mg Folic Acid (Folic Acid) 1 mg PO DAILY [facility] Last Admin: 01/12/18 10:00 Dose: 1 mg Hydralazine HCl (Apresoline) 50 mg PO TID [facility] Last Admin: 01/12/18 17:31 Dose: 50 mg Dextrose/Sodium Chloride (Dextrose 5%/0.9% Ns 1000 Ml) 1,000 mls @ 100 mls/hr IV .Q10H [facility] Last Admin: 01/12/18 14:29 Dose: 100 mls/hr Metoprolol Tartrate (Lopressor) 50 mg PO BRKDIN [facility] Last Admin: 01/13/18 08:50 Dose: 50 mg Olopatadine HCl (Patanol 0.1% Opht Soln) 0 ml OU BID PRN PRN Reason: Allergy symptoms Pantoprazole Sodium (Protonix Ec Tab) 40 mg PO 0600 [facility] Last Admin: 01/13/18 07:10 Dose: Not Given - Labs Labs: 01/12/18 10:40 01/13/18 07:00 PT 15.0 SECONDS (9.4-12.5) H 01/12/18 10:40 INR 1.30 (0.93-1.08) H 01/12/18 10:40 APTT 35.6 Seconds (25.1-36.5) 01/08/18 04:05 - Constitutional Appears: Chronically Ill - Head Exam Head Exam: NORMAL INSPECTION - ENT Exam ENT Exam: Mucous Membranes Moist - Neck Exam Neck Exam: absent: Meningismus - Respiratory Exam Respiratory Exam: Decreased Breath Sounds - Cardiovascular Exam Cardiovascular Exam: +S1, +S2 - GI/Abdominal Exam GI & Abdominal Exam: Soft. absent: Tenderness Assessment and Plan - Assessment and Plan (Free Text) Plan: Assessment Systemic Inflammatory response syndrome, R/O severe sepsis from bilateral lower lobe HCAP, clinically improving DM HTN dyslipidemia liver cancer S/P lobectomy Plan continue Zithromax day 6 to complete 7 days of therapy
--- NOTE | 2018-01-13 19:23 | PN ---
DATE: 01/13/2018 REASON FOR CONSULTATION AND FOLLOWUP: Shortness of breath, severe anemia status post packed RBC transfusion, renal insufficiency, cancer of liver. SUBJECTIVE: The patient denies any chest pain, shortness of breath, or any palpitations; and wanted to go home. PHYSICAL EXAMINATION: VITAL SIGNS: Temperature afebrile, heart rate 75, blood pressure 150/78. HEENT: PERRLA, intact. NECK: Supple. No carotid bruits or thyromegaly. CHEST: Clear to auscultation. HEART: S1 and S2. Regular. ABDOMEN: Soft. EXTREMITIES: Clubbing and cyanosis negative. LABORATORY DATA: WBC 9.1, hemoglobin 8.9, hematocrit 27, platelet count 134. Chemistry shows sodium 142, potassium 4, chloride 107, carbon dioxide 20, anion gap of 19. BUN 39, creatinine 4. IMPRESSION: Severe anemia status post packed red blood cells transfusion; cancer of liver with metastasis; hypoglycemia, responded to orange juice; no evidence of ischemia; chronic renal insufficiency. Avoid nephrotoxic medication. Discontinue IV fluid, discontinue telemetry. Continue to monitoring. Upon discharge, the patient will be followed up with him. Also, we will avoid insulin because the patient had mets in the liver and avoid hypoglycemic agent. We will follow with you. We will discontinue IV fluid as well. Thank you Dr. Ornelas, for providing us the opportunity in taking care of the patient, Cristopher Muñoz. Feng Butterfield MD cc: Nai Ornelas MD
--- NOTE | 2018-01-13 21:19 | PN ---
DATE: 01/13/2018 ENDOCRINOLOGY FOLLOWUP NOTE LOCATION: In room 274. SUBJECTIVE: This is a 77-year-old male with recent symptomatic hypoglycemic episode related to multiple factors, especially nutritional factors, and is now being followed closely for metabolic management. 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 His oral intake has been quite variable as per the nursing staff. His latest glucose levels have ranged from 85 to 96 mg/dL. His latest chemistry shows a BUN of 39, sodium 142, potassium 4.8, chloride 107, CO2 of 21, glucose 91, and creatinine 4. The repeat albumin level is 3.6 and the serum cortisol level is 23.2 mcg/dL . ASSESSMENT AND PLAN: This is a 77-year-old male with overt symptomatic hypoglycemia related to the recent intake of glimepiride or Amaryl given as 2 mg b.i.d. with meals as ordered. Actually this medication was given 2 days ago as noted. He has been taken off oral hypoglycemic therapy at this present time. This is a 77-year-old male with metastatic hepatocellular carcinoma with supervening symptomatic hypoglycemia and associated neuroglycopenia and hyperadrenergic manifestations of the same. Moreover, he also has type 2 diabetes, presently on Amaryl medication as given. He has diabetic microvascular complications with retinopathy, polyneuropathy, and nephropathy as noted with diabetic macrovascular complications with coronary artery disease and peripheral arterial disease and vasculopathy. As discussed with the staff today, we will continue the D5 normal saline infusion as given for now pending the improvement of his oral intake. Moreover, we will continue the D50 bolus injections for glucose levels below 60 p.r.n. as noted. We will obtain serum chemistry and supplement accordingly as needed. We will also send baseline serum cortisol, serum insulin and C-peptide levels as ordered. This will exclude although quite remotely, the possibility of remote insulin excess syndrome, i.e. insulinomas versus paraganglioma although quite remote, as mentioned. The most likely etiology for his hypoglycemia would be the impaired gluconeogenesis and impaired glycogenolysis with underlying hepatocellular carcinoma contributing to the symptomatic bouts of hypoglycemia as noted. We will obtain serum chemistry and supplement accordingly as needed. We will follow. Gertrude Burkett MD
--- NOTE | 2018-01-13 21:54 | PN ---
DATE: 01/13/2018 PULMONARY PROGRESS NOTE REFERRING PHYSICIAN: Nai Ornelas MD. SUBJECTIVE: He is sitting side of the bed. Night was unremarkable. Could not use CPAP. He feels this is too high pressure. No nausea, no vomiting. No diarrhea. No leg pain or leg swelling. OBJECTIVE: GENERAL: In no acute distress. VITAL SIGNS: Temperature is 98, heart rate 75, respiratory rate is 20, blood pressure 192/66, pulse ox 99% on room air. HEENT: Moist mucous membrane. Crowded airway. NECK: Supple. No JVD. LUNGS: Have a fair airflow with rhonchi. HEART: S1 and S2. ABDOMEN: Soft, nontender. No organomegaly. EXTREMITIES: No edema. NEUROLOGIC: Awake and follows simple command. MEDICATIONS: Reviewed and noted. No new changes in medication reported since yesterday. LABORATORY DATA: Shows sodium 142, potassium 4.8, chloride 107, bicarbonate 21, BUN 39, creatinine 4, glucose 114, hemoglobin A1c 6.1, calcium 8.8, AST 42, ALT 41, alk phos is 65. Albumin is 3.6 and cortisol level was 23. Microbiology: Blood culture has been negative. IMPRESSION AND PLAN: Pulmonary infiltrate, anemia, chronic obstructive lung disease, hypertension, diabetes, metastatic liver cancer, metastasis to the spine, requiring radiation in the past, hyperlipidemia, obesity, sleep apnea syndrome, renal failure, reoccurring hypoglycemia, seen by Endocrinology. Pulmonary point of view, doing okay. Encourage bilevel positive airway pressure use. Keep head at 45 degrees. Bronchodilator. Follow up x-ray to assure the stability of x-ray. Gastroenterology followup. Thank you and we will follow with you Feng Connell MD
[2018-01-14 14:00] LABS: C-PEPTIDE 5.84 ng/mL (0.80-3.85)
== END 2018-01-13 15:49 | DRG 871 ==
LOC: ED 03:56 → ERH 06:15 → 2RSO 14:22
PROVIDERS: ADMIT Internal Medicine; ATTEND Internal Medicine
PROC: 3E03328 Introduction of Oxazolidinones into Peripheral Vein, Percutaneous Approach (ICD-10-PCS; principal; 2018-01-08)
PROC: 3E0F7GC Introduction of Other Therapeutic Substance into Respiratory Tract, Via Natural or Artificial Opening (ICD-10-PCS; 2018-01-08)
PROC: 30233N1 Transfusion of Nonautologous Red Blood Cells into Peripheral Vein, Percutaneous Approach (ICD-10-PCS; 2018-01-09)
DX: A41.9 Sepsis, unspecified organism (principal); J18.9 Pneumonia, unspecified organism; I13.0 Hypertensive heart and chronic kidney disease with heart failure and stage 1 through stage 4 chronic kidney disease, or unspecified chronic kidney disease; C79.51 Secondary malignant neoplasm of bone; J44.0 Chronic obstructive pulmonary disease with (acute) lower respiratory infection; R65.20 Severe sepsis without septic shock; Z85.05 Personal history of malignant neoplasm of liver; E78.00 Pure hypercholesterolemia, unspecified; N18.9 Chronic kidney disease, unspecified; I50.9 Heart failure, unspecified; E11.22 Type 2 diabetes mellitus with diabetic chronic kidney disease; E11.51 Type 2 diabetes mellitus with diabetic peripheral angiopathy without gangrene; I25.10 Atherosclerotic heart disease of native coronary artery without angina pectoris; E11.649 Type 2 diabetes mellitus with hypoglycemia without coma; E11.319 Type 2 diabetes mellitus with unspecified diabetic retinopathy without macular edema; E11.42 Type 2 diabetes mellitus with diabetic polyneuropathy; E11.21 Type 2 diabetes mellitus with diabetic nephropathy; D64.9 Anemia, unspecified; E11.65 Type 2 diabetes mellitus with hyperglycemia; F41.9 Anxiety disorder, unspecified; Y95 Nosocomial condition; G47.30 Sleep apnea, unspecified; E66.9 Obesity, unspecified; Z68.29 Body mass index [BMI] 29.0-29.9, adult; Z92.3 Personal history of irradiation; Z87.891 Personal history of nicotine dependence; Z88.0 Allergy status to penicillin

== ENCOUNTER 2018-01-13 15:49 | Inpatient (IN) | payer OTHER, MEDICARE ==
[2018-01-13 16:30] VITALS: BMI 27.7
[2018-01-13] MEDS: Olopatadine 0.1% Opht Sol OU SCH (18:17)
[2018-01-13] MEDS: Albuterol-Ipratrop 3 mg / 0.5 (3 ml) UD IH SCH (19:23)
[2018-01-13] MEDS ORDERED: Pneumococcal 23-Valent Vaccine IM ONE (20:23)
[2018-01-14] MEDS: Albuterol-Ipratrop 3 mg / 0.5 (3 ml) UD IH SCH ×4 (01:06→21:44)
[2018-01-14] MEDS: Pantoprazole 40 mg EC Tab PO SCH (05:57)
[2018-01-14 06:30] LABS: BASO # 0.02 K/mm3 (0.0-2.0); BASO % 0.2 % (0.0-3.0); EOS # 0.2 (0.0-0.7); EOS % 2.3 % (1.5-5.0); GRAN # 5.75 (1.4-6.5); GRAN % 69.3 % (50.0-68.0); HEMOGLOBIN 8.2 g/dL (14.0-18.0); LYMPH # 1.3 (1.2-3.4); LYMPH % 15.9 % (22.0-35.0); MEAN CELL VOLUME 85.7 fl (80.0-105.0); MEAN CORPUSCULAR HGB CONC 32.7 g/dl (31.0-37.0); MEAN PLATELET VOLUME 11.2 fl (7.0-11.0); MONO % 12.3 % (1.0-6.0); RBC 2.93 10^6/uL (3.5-6.1); WHITE BLOOD COUNT 8.3 10^3/ul (4.5-11.0)
[2018-01-14 06:42] LABS: ALB/GLOB RATIO 1.3 (1.1-1.8); ALBUMIN 3.6 g/dL (3.0-4.8); CALCIUM 9.2 mg/dL (8.4-10.5)
--- NOTE | 2018-01-14 10:30 | CP.PCM.PN ---
<Anay Lanier - Last Filed: 01/14/18 10:30> Subjective - Date & Time of Evaluation Date of Evaluation: 01/14/18 Time of Evaluation: 07:45 - Subjective Subjective: GI Fellow PGY 4 Progress Note Pt seen and evaluated at bedside, pt doing well after transfer to TCU. Pt denies any rectal bleeding at this this time. Tolerating diet. Pt is a little frustrated about being in the hospital on his birthday. ROS: A 12pt ROS was negative except as above. Objective - Vital Signs/Intake and Output Vital Signs (last 24 hours): Temp Pulse Resp BP Pulse Ox 98.4 F 84 20 153/57 H 95 01/14/18 06:00 01/14/18 07:52 01/14/18 06:00 01/14/18 07:52 01/14/18 06:00 Intake and Output: 01/14/18 01/14/18 06:59 18:59 Intake Total 420 Balance 420 - Medications Medications: Current Medications Albuterol/Ipratropium (Duoneb 3 Mg/0.5 Mg (3 Ml) Ud) 3 ml IH [id number] [facility] PRN Reason: Protocol Last Admin: 01/14/18 07:14 Dose: 3 ml Amlodipine Besylate (Norvasc) 10 mg PO DAILY [facility] PRN Reason: Protocol Aspirin (Aspirin Chewable) 81 mg PO 0800 [facility] PRN Reason: Protocol Last Admin: 01/14/18 07:52 Dose: 81 mg Azithromycin (Zithromax) 500 mg PO DAILY [facility] PRN Reason: Protocol Folic Acid (Folic Acid) 1 mg PO DAILY [facility] PRN Reason: Protocol Hydralazine HCl (Apresoline) 50 mg PO TID [facility] PRN Reason: Protocol Last Admin: 01/13/18 17:18 Dose: 50 mg Metoprolol Tartrate (Lopressor) 50 mg PO 0800,1800 [facility] PRN Reason: Protocol Last Admin: 01/14/18 07:52 Dose: 50 mg Olopatadine HCl (Patanol 0.1% Opht Soln) 0 ml OU BID [facility] PRN Reason: Protocol Last Admin: 01/13/18 18:17 Dose: 1 drop Pantoprazole Sodium (Protonix Ec Tab) 40 mg PO 0600 [facility] PRN Reason: Protocol Last Admin: 01/14/18 05:57 Dose: 40 mg - Labs Labs: 01/14/18 06:00 01/14/18 06:00 - Constitutional Appears: Non-toxic, No Acute Distress - Head Exam Head Exam: ATRAUMATIC, NORMAL INSPECTION, NORMOCEPHALIC - Eye Exam Eye Exam: EOMI, Normal appearance, PERRL Pupil Exam: PERRL - ENT Exam ENT Exam: Mucous Membranes Moist - Neck Exam Neck Exam: Full ROM, Normal Inspection - Respiratory Exam Respiratory Exam: Clear to Ausculation Bilateral, NORMAL BREATHING PATTERN - Cardiovascular Exam Cardiovascular Exam: REGULAR RHYTHM, +S1, +S2 - GI/Abdominal Exam GI & Abdominal Exam: Soft, Normal Bowel Sounds. absent: Distended, Firm, Guarding, Tenderness - Rectal Exam Rectal Exam: Deferred - Extremities Exam Extremities Exam: Full ROM, Normal Inspection - Neurological Exam Neurological Exam: Alert, Awake, Oriented x3 - Psychiatric Exam Psychiatric exam: Normal Affect, Normal Mood - Skin Skin Exam: Dry, Intact, Normal Color, Warm Assessment and Plan - Assessment and Plan (Free Text) Assessment: This is a 78yo male with PMH of Hepatocellular carcinoma s/p right lobectomy 2016 at [place] with recent finding of spine metastases tentative radiation therapy, Lower GI bleed 2/2 post-polypectomy colonic ulcers 02/2014 (off Plavix since that time), PVD on Aspirin, HTN, HLD, and T2DM presenting with shortness of breath. Pt was found to be anemia s/p 2U pRBCs on 01/09/18. Initial GI consultation for GI bleed. Recently left AMA on 12/31/17 with presentation of melena with acute anemia requiring 2U pRBCs s/p EGD showing H. pylori negative gastritis. Patient refused colonoscopy and left AMA. Patient was scheduled for outpatient colonoscopy with Dr. Fuentes on 01/08/18 but missed appointment due to current admission. Colonoscopy 02/[address] Larsen for lower GI bleed showed multiple post- polypectomy colonic ulcers with no acute bleeding s/p epinephrine injections and /or hemoclips. Colonoscopy 08/[address] Noel showed 8mm ascending polyp and 4mm transverse polyp not removed due to anticoagulation at that time, small/ large diverticulosis, and internal hemorrhoids. Endorses repeat colonoscopy [address] Larsen stated to be normal. 1. Anemia 2. Rectal bleeding 3. HCAP Plan: -Continue supportive care -No rectal/GI bleeding, H/H stable, hemodynamically stable -Possible GI Bleed 2/2 AVMs/polyps/diverticular/hemorrhoidal -s/p 2U pRBCs on 01/09/18 Hb 7.4 with appropriate response to 9.3 -Previously scheduled outpatient colonoscopy with Dr. Fuentes on 01/08/18 missed due to current admission -After discussion with Dr. Ornelas who prefers pt gets a colonoscopy upon discharge from TCU which will be January 21 -However pt prefers to be discharged soon and follow up with Dr. Larsen for procedure -Recommend re-consult closer to discharge date if pt will like colonoscopy with Dr. Fuentes in order to prescribe bowel prep while in TCU and schedule pt, however pt can also followup for outpt colonoscopy with Dr. Larsen if he prefers -Please call with any questions or concerns <Blake Fuentes - Last Filed: 01/14/18 12:49> Objective - Vital Signs/Intake and Output Vital Signs (last 24 hours): Temp Pulse Resp BP Pulse Ox 98.4 F 81 20 146/63 98 01/14/18 06:00 01/14/18 11:34 01/14/18 06:00 01/14/18 10:48 01/14/18 11:34 Intake and Output: 01/14/18 01/14/18 06:59 18:59 Intake Total 420 Balance 420 - Medications Medications: Current Medications Albuterol/Ipratropium (Duoneb 3 Mg/0.5 Mg (3 Ml) Ud) 3 ml IH [id number] [facility] PRN Reason: Protocol Last Admin: 01/14/18 07:14 Dose: 3 ml Amlodipine Besylate (Norvasc) 10 mg PO DAILY [facility] PRN Reason: Protocol Last Admin: 01/14/18 10:48 Dose: 10 mg Aspirin (Aspirin Chewable) 81 mg PO 0800 [facility] PRN Reason: Protocol Last Admin: 01/14/18 07:52 Dose: 81 mg Azithromycin (Zithromax) 500 mg PO DAILY [facility] PRN Reason: Protocol Last Admin: 01/14/18 10:49 Dose: 500 mg Folic Acid (Folic Acid) 1 mg PO DAILY [facility] PRN Reason: Protocol Last Admin: 01/14/18 10:48 Dose: 1 mg Hydralazine HCl (Apresoline) 50 mg PO TID [facility] PRN Reason: Protocol Last Admin: 01/14/18 10:48 Dose: 50 mg Metoprolol Tartrate (Lopressor) 50 mg PO 0800,1800 [facility] PRN Reason: Protocol Last Admin: 01/14/18 07:52 Dose: 50 mg Olopatadine HCl (Patanol 0.1% Opht Soln) 0 ml OU BID [facility] PRN Reason: Protocol Last Admin: 01/14/18 10:49 Dose: 1 drop Pantoprazole Sodium (Protonix Ec Tab) 40 mg PO 0600 [facility] PRN Reason: Protocol Last Admin: 01/14/18 05:57 Dose: 40 mg - Labs Labs: 01/14/18 06:00 01/14/18 06:00 Attending/Attestation - Attestation I have personally seen and examined this patient.: Yes I have fully participated in the care of the patient.: Yes I have reviewed all pertinent clinical information, including history, physical exam and plan: Yes Notes (Text): 01/14/18 12:48 78 year old male with h/o HCC s/p resection admitted with anemia / rectal bleeding, s/p unremarkable egd. Recommend outpatient colonoscopy with Dr. Larsen. Will sign off.
[2018-01-14] MEDS: Olopatadine 0.1% Opht Sol OU SCH ×2 (10:49→17:44)
--- NOTE | 2018-01-14 19:43 | PN ---
DATE: 01/14/2018 LOCATION: In room 316, U. HISTORY OF PRESENT ILLNESS: This is a 77-year-old male admitted with congestive heart failure and underlying pneumonitis and currently receiving IV antibiotic management at this time and is also being followed closely for metabolic management. His glycemic levels are just risen and is much improved at this time and has actually stabilized. There are no further bouts of symptomatic hypoglycemia. His latest chemistry showed the BUN of 42, sodium 146, potassium 4.6, chloride 112, CO2 was 19, glucose 129, and creatinine 4.2. ASSESSMENT: This is a 77-year-old male with known history of type 2 diabetes, hypertension, and significant cardiac vasculopathy presented here with congestive heart failure and the symptoms include clinically and hemodynamically as noted thereof. He also has diabetic macrovascular complications of retinopathy, polyneuropathy and nephropathy with progressive renal insufficiency. Moreover, his diabetic macrovascular complications of coronary artery disease and peripheral arterial disease and vasculopathy. He also has concomitant hepatocellular carcinoma with supervening symptomatic bouts of hypoglycemia, but that has improved as noted accordingly. He has been taken off all oral hypoglycemic therapy as noted. PLAN OF MANAGEMENT: We will continue the present medical and cardiac management as stated at this time. We will hold off the re-initiation of any kind of oral hypoglycemic therapy as his glycemic values have improved accordingly. We will obtain serial chemistries and supplement accordingly as needed. We will follow. Gertrude Burkett MD
--- NOTE | 2018-01-15 01:40 | CON ---
DATE: 01/14/2018 PULMONARY CONSULT REFERRING PHYSICIAN: Nai Ornelas MD. REASON FOR CONSULT: Pulmonary infiltrates, may have sleep apnea syndrome. HISTORY OF PRESENT ILLNESS: This is a 78-year-old gentleman known to me to [facility] side of the hospital, has multiple medical issues including liver cancer, history of lobectomy, esophageal varices, hypertension, diabetes, hyperlipidemia, admitted to [facility] side of the hospital with cough, shortness of breath, found to have a pulmonary infiltrate, treated for heart failure as well as pneumonia, had a recurrent hypoglycemia requiring endocrinology consult, was getting supplement of glucose, presently admitted TICU for continued care, have snoring, daytime sleepy and tired. Breathing is better. No chest pain. No nausea, no vomiting, diarrhea, leg pain or leg swelling. PAST MEDICAL HISTORY: As per history of present illness. ALLERGIES: TO AMOXICILLIN. SOCIAL HISTORY: Former smoker. Denied any alcohol use. FAMILY HISTORY: No significant cardiopulmonary disease reported. MEDICATIONS: He is on hydralazine 50 mg three times a day, aspirin 81 mg daily, DuoNeb every 6 hours, folic acid 1 mg daily, metoprolol tartrate 50 mg twice a day, Norvasc 10 mg daily, Protonix 40 mg daily, Zithromax 500 mg daily. REVIEW OF SYSTEMS: No headache, no rhinitis. No nausea, no vomiting. No abdominal pain. No dysuria, leg pain or leg swelling. PHYSICAL EXAMINATION: GENERAL: Lying in the bed, in no acute distress. VITAL SIGNS: Temperature is 98, heart rate is 83, respiratory rate is 20, blood pressure 155/60, pulse ox 98% on nasal cannula. HEENT: Moist mucous membrane. Crowded airway. Mallampati score is 4. NECK: Supple. No JVD. LUNGS: Have fair airflow with rhonchi. HEART: S1 and S2. ABDOMEN: Soft, nontender. No organomegaly. EXTREMITIES: No edema. NEUROLOGICAL: Awake and alert. Follows simple command. LABORATORY DATA: Shows hemoglobin 8.2, hematocrit 25.1, WBC 8.3, platelet count is 130. Sodium 146, potassium 4.6, chloride 112, bicarbonate 19. BUN 42, creatinine 4. Glucose 143. Calcium is 9.2. AST 35, ALT is 45, alk phos is 64. Albumin is 3.6. Microbiology, blood culture has been negative. 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 Pulmonary point of view, doing okay. Continue current CPAP use. Keep head 45 degrees. May follow blood sugar a.c. and at bedtime. Being followed by endocrinology, being followed by Gastroenterology. Spoke to the patient's at bedside. Thank you and we will follow with you. Feng Connell MD
[2018-01-15] MEDS: Albuterol-Ipratrop 3 mg / 0.5 (3 ml) UD IH SCH ×4 (04:00→21:15)
[2018-01-15] MEDS: Pantoprazole 40 mg EC Tab PO SCH (05:49)
[2018-01-15] MEDS: Olopatadine 0.1% Opht Sol OU SCH ×2 (09:55→17:29)
--- NOTE | 2018-01-15 14:27 | RAD ---
HISTORY: infiltrate COMPARISON: 01/08/2018 TECHNIQUE: Chest PA and lateral FINDINGS: LUNGS: Interval improvement in lower lobe infiltrates identified on the prior study. PLEURA: No significant pleural effusion identified. No pneumothorax apparent. CARDIOVASCULAR: Cardiomegaly, prominent pulmonary vascularity. OSSEOUS STRUCTURES: No significant abnormalities. VISUALIZED UPPER ABDOMEN: Normal. OTHER FINDINGS: None. IMPRESSION: Resolution of previously identified lower lobe infiltrates. No active pulmonary disease.
--- NOTE | 2018-01-15 16:26 | PN ---
DATE: 01/15/2018 PULMONARY PROGRESS NOTE REFERRING PHYSICIAN: Nai Ornelas MD. SUBJECTIVE: He is out of bed to chair. Night was unremarkable. Not very compliant with the CPAP. is at bedside. Cough is better. No nausea. No vomiting. No diarrhea. No leg pain or leg swelling. PHYSICAL EXAMINATION: GENERAL: In no acute distress. VITAL SIGNS: Temperature is 98, heart rate is 73, respiratory rate is 20, blood pressure 151/50, pulse ox 98% on nasal cannula. HEENT: Moist mucous membrane. Crowded airway. Mallampati score is 4. NECK: Supple. No JVD. LUNGS: Have a fair airflow with rhonchi. HEART: S1 and S2. ABDOMEN: Soft, nontender. No organomegaly. EXTREMITIES: There is no edema. NEUROLOGIC: Awake, alert, and follows simple command. MEDICATIONS: He is on hydralazine 50 mg three times a day, aspirin 81 mg daily, DuoNeb every 6 hours, folic acid 1 mg daily, metoprolol tartrate 50 mg twice a day, Norvasc 10 mg daily, he is on Protonix 40 mg daily, and Zithromax 500 mg daily. LABORATORY DATA: Reviewed and noted. Blood sugar this morning is 95. 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 Pulmonary point of view, doing okay. Awaiting chest x-ray. Continue to encourage CPAP use. Keep head at 45 degrees. Follow blood sugar closely. Fall precaution. Thank you and we will follow with you. Feng Connell MD
--- NOTE | 2018-01-15 16:35 | PN ---
DATE: 01/15/2018 ENDOCRINOLOGY FOLLOWUP NOTE LOCATION: Room 316, [facility]. SUBJECTIVE: This is a 78-year-old male with known history of hepatocellular carcinoma with bony metastases and now being followed closely for metabolic management. His glycemic levels are much improved at this time as noted and also with improvement of his oral intake accordingly. His glucose values have ranged from 95 to 136 and 143 mg/dL. His latest chemistries include a BUN of 42, sodium 146, potassium 4.6, chloride 112, CO2 of 19, glucose 129, and creatinine 4. With progressive renal insufficiency and variable oral intake, we will hold off the initiation of any kind of oral hypoglycemic therapy for now. If hyperglycemic levels supervene, then we can always add a very short acting oral hypoglycemic therapy, especially for renal patients, such as Prandin given as 0.5 mg t.i.d. with meals as indicated. For now, we will obtain serial chemistries and supplement accordingly as needed. We will follow and advise accordingly. Gertrude Burkett MD
--- NOTE | 2018-01-15 21:30 | HP ---
DATE OF EXAM: 01/14/2018 The patient was seen late evening on 01/14/2018 in the presence of . CHIEF COMPLAINT: Shortness of breath, fatigue. HISTORY OF PRESENT ILLNESS: Mr. Cristopher Muñoz is 77-year-old patient, has history of GI bleeding. Last admission, he signed against medical advice never went for followup colonoscopy with GI. Now came at this time with coughing, fatigue, tired, came to know the patient has pulmonary infiltrates. He has multiple medical issues including liver cancer, history of lobectomy, esophageal varices, hypertension, diabetes mellitus, hypercholesterolemia. Came this time with cough and shortness of breath, found to have pulmonary infiltrates, treated for heart failure as well as pneumonia, had recurrent hypoglycemia, requiring Endocrinology consult and dextrose infusion was given. All diabetic medicine was discontinued. Now transferred to TCU for continuity of care and for deconditioning. The patient has history of daytime sleepiness, snoring at night as per the patient's . Now breathing is better, cough is better. No fever, no chills. No nausea, vomiting or diarrhea. No hematuria or hematochezia. PAST MEDICAL HISTORY: As above with history of liver cancer status post lobectomy, history of GI bleeding, need colonoscopy, diabetes mellitus, now has attacks of hypoglycemia. ALLERGIES: THE PATIENT ALLERGIC TO AMOXYCILLIN. SOCIAL HISTORY: Former smoker. Denies any alcohol abuse. FAMILY HISTORY: No significant cardiopulmonary disease. MEDICATIONS: Reviewed by me. REVIEW OF SYSTEMS: The patient was seen and examined on the bedside, lying uncomfortably, cough is better, shortness of breath is better, did physical therapy, length of time discussion done, treatment plan explained to her. PHYSICAL EXAMINATION: VITAL SIGNS: Temperature 98, heart rate 80, respiratory rare 20, blood pressure 150/60, pulse oximetry 98% on nasal cannula. HEENT: Head normocephalic, atraumatic. Eyes, PERRLA. Extraocular muscles intact. Conjunctivae clear. Nose patent. Mucous membrane moist. NECK: Supple. No carotid bruit. No JVD or thyromegaly. CHEST: Bilaterally symmetrical. HEART: S1 and S2 positive. LUNGS: Clear to auscultation. ABDOMEN: Soft. Bowel sounds positive. No organomegaly. EXTREMITIES: No edema. No cyanosis. NEUROLOGICAL: The patient is awake and alert. Moving all 4 extremities. No focal deficits. LABORATORY DATA: Hemoglobin 8.2, hematocrit of 25.1, white blood cells 8.3, platelets 130. Sodium 146, potassium 4.6, Bun 42, creatinine 4, AST 35, ALT 45. ASSESSMENT AND PLAN: Mr. Cristopher Muñoz has pulmonary infiltrates, congestive heart failure, anemia status post blood transfusion, chronic obstructive pulmonary disease, hypertension, history of diabetes mellitus, now getting hypoglycemic attacks, metastatic liver disease status post liver surgery, lobectomy, history of esophageal varices, metastatic disease of the liver cancer requiring radiation, hypercholesterolemia, obesity, renal failure. The patient is improving, using CPAP, feeling better with that, keep head at 45 degree elevated, checking blood sugar, no more diabetes medication. E/M Engineer and GI is on the case. I appreciated Dr. Connell's input. We will continue hydralazine for high blood pressure, aspirin, DuoNeb, p.r.n. folic acid metoprolol, Norvasc, Protonix, Zithromax. We will follow up. Nai Ornelas MD [facility]
[2018-01-16] MEDS: Albuterol-Ipratrop 3 mg / 0.5 (3 ml) UD IH SCH ×4 (03:00→19:53)
[2018-01-16] MEDS: Pantoprazole 40 mg EC Tab PO SCH (05:45)
[2018-01-16] MEDS ORDERED: Magnesium Citrate Oral SOL (300 ml) PO ONE (13:07)
[2018-01-16] MEDS: Olopatadine 0.1% Opht Sol OU SCH ×2 (13:15→17:33)
--- NOTE | 2018-01-16 13:34 | PN ---
DATE: 01/16/2018 PULMONARY PROGRESS NOTE REFERRING PHYSICIAN: Dr. Ornelas. SUBJECTIVE: He is out of bed to chair. Night was unremarkable. Does not use CPAP. No headache, no rhinitis. No cough. No nausea. Constipated. Also, complaining about hemorrhoids. No leg pain or leg swelling. OBJECTIVE: GENERAL: Not in acute distress. VITAL SIGNS: Temperature is 98, heart rate 90, respiratory rate 20, blood pressure 150/57, pulse ox 95% on room air. HEENT: Moist mucous membrane. Crowded airway. Mallampati score is 4. NECK: Supple. No JVD. LUNGS: Have fair airflow with a few rhonchi. HEART: S1, S2. ABDOMEN: Soft, nontender. No organomegaly. EXTREMITIES: No edema. NEUROLOGIC: Awake and alert and follows simple command. MEDICATIONS: He is on hydralazine 50 mg three times a day, aspirin 81 mg daily DuoNeb every 6 hours [id number], folic acid 1 mg daily, metoprolol tartrate 50 mg twice a day, Norvasc 10 mg daily, Protonix 40 mg daily, Xanax 0.25 mg at bedtime, Zithromax 500 mg daily. LABORATORY DATA: Shows hemoglobin 8.2, hematocrit 25.1, WBC 8.3, platelet is 130, glucose 127. Also, had a chest x-ray done yesterday, which showed resolution of previously identified lower lobe infiltrate. 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 We will place him on MiraLax. May give preparation H. Encourage CPAP use, sleep apnea precaution. Follow up labs in the morning. We will follow with you. Feng Connell MD
--- NOTE | 2018-01-16 16:14 | PN ---
DATE: 01/15/2018 SUBJECTIVE: The patient is a 78-year-old male. Patient is seen and examined at the bedside on 01/15/2018 and looking comfortable. No nausea, vomiting or diarrhea. is sitting on the bedside also. Patient is sitting on the recliner chair. Complaining about anxiety at night. I restarted Xanax. Cough is better. Shortness of breath is better. Getting physical therapy. No headache. No dizziness. No chest pain. No palpitation. PHYSICAL EXAMINATION: VITAL SIGNS: Temperature 98, heart rate 73, respiratory rate 20, blood pressure 150/80, pulse oximetry 98% on nasal cannula. HEENT: Head: Normocephalic, atraumatic. Eyes: PERRLA. Extraocular movements intact. Conjunctivae clear. Nose patent. Mucous membranes are moist. NECK: Supple. No carotid bruit. No JVD or thyromegaly. CHEST: Bilaterally symmetrical. HEART: S1 and S2 positive. LUNGS: Clear to auscultation. ABDOMEN: Soft. Bowel sounds present. No organomegaly. EXTREMITIES: No edema. No cyanosis. NEUROLOGIC: Patient is awake, alert. Moving all four extremities. No focal deficit. MEDICATIONS: Hydralazine, DuoNeb, metoprolol, Norvasc, Protonix, Zithromax. LABORATORY DATA: We do not have recent lab today, but I reviewed old labs. ASSESSMENT AND PLAN: Mr. 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 Fall precautions. Continue present treatment. Went for chest x-rays according showed resolution of previously identified lower lobe infiltrates, no active pulmonary disease. Out of bed. Physical therapy. We will follow up. Nai Ornelas MD MTDVictorina
[2018-01-16] MEDS: POLYETHYLENE GLYCOL 3350 17 GM/Dose PACKET PO SCH (17:33)
--- NOTE | 2018-01-16 20:45 | PN ---
DATE: 01/16/2018 LOCATION: Room 316. SUBJECTIVE: This is a 77-year-old male presenting here with congestive heart failure and underlying pneumonitis and is now also being followed closely for metabolic management. He previously presented also with symptomatic hypoglycemia and associated neuroglycopenic and hyperadrenergic manifestations, which have improved accordingly as noted. His latest glucose values have ranged from 127-138 and 144 mg/dL. His latest chemistry showed a BUN of 42, sodium 146, potassium 4.6, chloride 112, CO2 19, glucose 129 and creatinine 4. So at this time, because of the progressive renal insufficiency and reduced clearance of oral hypoglycemic therapy, he has been taken off all oral hypoglycemic therapy at this time. He was previously on Amaryl medications . So for now, we will continue the fingerstick glucose testing with no extra insulin coverage . We will obtain serial chemistries and supplement accordingly as needed. We will follow. Gertrude Burkett MD
[2018-01-17] MEDS: Albuterol-Ipratrop 3 mg / 0.5 (3 ml) UD IH SCH ×4 (02:00→19:24)
--- NOTE | 2018-01-17 03:49 | PN ---
DATE: 01/16/2018 SUBJECTIVE: The patient is a 77-year-old male. Patient was seen and examined at the bedside, looking comfortable. was sitting at bedside also. No nausea, vomiting or diarrhea. No hematuria or hematochezia. No swelling of the leg. No chest pain. No palpitation. No headache or dizziness. PHYSICAL EXAMINATION: VITAL SIGNS: Temperature 98, heart rate 90, respiratory rate 20, blood pressure 150/57. HEENT: Head: Normocephalic, atraumatic. Eyes: PERRLA. Extraocular movements intact. Conjunctivae clear. Nose patent. Mucous membranes are moist. NECK: Supple. No carotid bruit. No JVD or thyromegaly. CHEST: Bilaterally symmetrical. HEART: S1 and S2 positive. LUNGS: Clear to auscultation. ABDOMEN: Soft. Bowel sounds present. No organomegaly. EXTREMITIES: No edema. No cyanosis. NEUROLOGIC: Patient is awake, alert. Follows simple commands. MEDICATIONS: Hydralazine, aspirin, DuoNeb, folic acid, metoprolol, Norvasc, Protonix, Xanax, azithromycin. LABORATORY DATA: Hemoglobin 8.2, hematocrit 25.1, white blood cells 8.3, platelets 130. Glucose 127. Chest x-ray done yesterday shows resolution of previously identified lower lobe infiltrates. The patient's was informed about the result. ASSESSMENT AND PLAN: Mr. Cristopher Muñoz is a 77-year-old male with history of multiple medical problems came with pulmonary infiltrates, which was pneumonia and now resolved completely. 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 Gastrointestinal and deep venous thrombosis prophylaxis. Encouraged CPAP use for sleep apnea precaution. Repeat labs. Nai Ornelas MD
[2018-01-17] MEDS: Pantoprazole 40 mg EC Tab PO SCH (05:33)
[2018-01-17 06:41] LABS: HEMOGLOBIN 7.5 g/dL (14.0-18.0); MEAN CELL VOLUME 85.1 fl (80.0-105.0); MEAN CORPUSCULAR HEMOGLOBIN 28.6 pg (25.0-35.0); MEAN CORPUSCULAR HGB CONC 33.6 g/dl (31.0-37.0); RBC 2.62 10^6/uL (3.5-6.1); RED CELL DISTRIBUTION WIDTH 15.7 % (11.5-14.5); WHITE BLOOD COUNT 7.9 10^3/ul (4.5-11.0)
[2018-01-17 06:47] LABS: CALCIUM 8.9 mg/dL (8.4-10.5)
[2018-01-17] MEDS: POLYETHYLENE GLYCOL 3350 17 GM/Dose PACKET PO SCH ×2 (09:50→17:19)
[2018-01-17] MEDS: Olopatadine 0.1% Opht Sol OU SCH ×2 (11:06→17:19)
[2018-01-17] MEDS: Hydrocortisone 2.5% Rectal Cream(30 gm) PR SCH ×2 (12:07→17:15)
--- NOTE | 2018-01-17 16:35 | PN ---
DATE: 01/17/2018 ENDOCRINOLOGY FOLLOWUP LOCATION: In room 316, [facility]. SUBJECTIVE: This is a 78-year-old male with recent congestive heart failure and has improved clinically and hemodynamically as noted thereof and is being followed closely also for metabolic management. His glycemic levels are much improved at this time and the glucose values overnight have ranged from 115 to 124 mg/dL. It was 122 at bedtime last night. The latest chemistry showed a BUN of 49. Sodium 140, potassium 4.7, chloride 106, CO2 of 20. Glucose 119. Creatinine 3.7. So at this time, we will hold off the resumption of any kind of oral hypoglycemic therapy because of the variability of his oral intake and also because of the progressive renal insufficiency as noted with expected reduced and impaired clearance of the oral hypoglycemic therapy with higher for hypoglycemia. The hormonal profile sent for the serum insulin and C-peptide levels are pending at this time and have been sent out to a reference lab as noted. We will continue the fingerstick glucose testing with no insulin coverage scale as ordered. We will increase meal portions on food intake even with preferential food from home as indicated. We will obtain serial chemistries and supplement accordingly as needed. We will follow. Gertrude Burkett MD
--- NOTE | 2018-01-17 18:52 | PN ---
DATE: 01/17/2018 PULMONARY PROGRESS NOTE REFERRING PHYSICIAN: Nai Ornelas MD. SUBJECTIVE: The patient is lying in the bed, head at 45 degrees. is at bedside. Overnight events noted. Tired and sleepy. Feels better. Received packed cells today. Had a bowel movement. No more rectal burning. No leg pain or leg swelling. PHYSICAL EXAMINATION: GENERAL: In no acute distress. VITAL SIGNS: Temperature is 98, heart rate is 90, respiratory rate is 20, blood pressure 148/76, pulse ox 95% room air. HEENT: Moist mucous membrane. Crowded airway. Mallampati score is 4. NECK: Supple. No JVD. LUNGS: Have a fair airflow with few rhonchi. HEART: S1 and S2. ABDOMEN: Soft, nontender. No organomegaly. EXTREMITIES: No edema. NEUROLOGIC: Awake, alert, and follows simple command. MEDICATIONS: He is on Anusol rectally twice a day, hydralazine 50 mg three times a day, aspirin 81 mg daily, Colace 100 mg twice a day, DuoNeb every 6 hours, folic acid 1 mg daily, metoprolol tartrate 50 mg twice a day, MiraLax 17 g twice a day, Norvasc 10 mg daily, Protonix 40 mg daily, Xanax 0.25 mg at bedtime, Zithromax 500 mg daily. LABORATORY DATA: Shows hemoglobin 7.5, hematocrit 22.3, WBC 7.9, platelet count is 105. Sodium 140, potassium 4.7, chloride 106, bicarbonate 20, BUN 49, creatinine 3.7, glucose 134, calcium is 8.9. 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 Being followed by GI. Plan is to give packed cells. Continue bronchodilator. Keep head at 45 degrees. Aspiration precaution. Follow up labs in the morning. Thank you and we will follow up with you. Feng Connell MD [facility] # [id number]
[2018-01-18] MEDS: Albuterol-Ipratrop 3 mg / 0.5 (3 ml) UD IH SCH ×4 (04:15→20:18)
[2018-01-18] MEDS: Pantoprazole 40 mg EC Tab PO SCH (06:07)
[2018-01-18] MEDS ORDERED: Lidocaine 2% Jelly (30 ml) TOP PRN (07:18)
[2018-01-18 08:53] LABS: BASO # 0.03 K/mm3 (0.0-2.0); BASO % 0.4 % (0.0-3.0); EOS # 0.1 (0.0-0.7); EOS % 1.8 % (1.5-5.0); GRAN # 4.85 (1.4-6.5); HEMOGLOBIN 7.7 g/dL (14.0-18.0); LYMPH # 0.8 (1.2-3.4); LYMPH % 11.1 % (22.0-35.0); MEAN CORPUSCULAR HEMOGLOBIN 28.4 pg (25.0-35.0); MEAN PLATELET VOLUME 11.2 fl (7.0-11.0); MONO # 1.3 (0.1-0.6); MONO % 18.7 % (1.0-6.0); RBC 2.71 10^6/uL (3.5-6.1); RED CELL DISTRIBUTION WIDTH 15.7 % (11.5-14.5); WHITE BLOOD COUNT 7.1 10^3/ul (4.5-11.0)
[2018-01-18 09:03] LABS: CALCIUM 9.4 mg/dL (8.4-10.5)
[2018-01-18] MEDS ORDERED: Nitroglycerin 2% Ointment Foilpak UD TOP SCH (10:00)
--- NOTE | 2018-01-18 10:30 | PN ---
DATE: 01/18/2018 ENDOCRINOLOGY FOLLOWUP NOTE LOCATION: In room 316. SUBJECTIVE: This is a 78-year-old male with recent admission for congestive heart failure and underlying pneumonitis and is also being followed closely for metabolic management because of previous bouts of symptomatic hypoglycemia, which has improved both clinically and metabolically as noted thereof. His glucose levels have ranged from 134-137 mg/dL. His latest chemistry showed a BUN of 47, sodium 143, potassium 4.6, chloride 107, CO2 of 21, glucose 158 and creatinine 4. So at this time, we will continue the fingerstick glucose testing with no need for the resumption of his oral hypoglycemic therapy at this time. With the variability of his oral intake and also with the progressive renal insufficiency with reduced oral hypoglycemic requirements because of the impaired GFR, it would be more prudent to hold off the oral hypoglycemic therapy to obviate further hypoglycemia. We will observe his glycemic fluctuations and also obtain serial chemistries accordingly. Gertrude Burkett MD
[2018-01-18] MEDS: POLYETHYLENE GLYCOL 3350 17 GM/Dose PACKET PO SCH ×2 (10:56→17:19)
[2018-01-18] MEDS: Hydrocortisone 2.5% Rectal Cream(30 gm) PR SCH ×2 (10:56→17:19)
[2018-01-18] MEDS: Olopatadine 0.1% Opht Sol OU SCH ×2 (10:57→18:33)
--- NOTE | 2018-01-18 10:57 | CP.PCM.PN ---
<Anay Lanier - Last Filed: 01/18/18 10:58> Subjective - Date & Time of Evaluation Date of Evaluation: 01/18/18 Time of Evaluation: 08:00 - Subjective Subjective: GI Fellow PGY 4 Progress Note Pt seen and evaluated at bedside, pt doing well after transfer to TCU. Pt with blood on toilet paper and constipation for a few days with rectal pain. ROS: A 12pt ROS was negative except as above. Objective - Vital Signs/Intake and Output Vital Signs (last 24 hours): Temp Pulse Resp BP Pulse Ox 98.7 F 84 20 150/62 90 L 01/17/18 16:00 01/18/18 08:14 01/18/18 00:00 01/18/18 08:14 01/18/18 00:00 - Medications Medications: Current Medications Albuterol/Ipratropium (Duoneb 3 Mg/0.5 Mg (3 Ml) Ud) 3 ml IH [id number] [facility] PRN Reason: Protocol Last Admin: 01/18/18 08:53 Dose: 3 ml Alprazolam (Xanax) 0.25 mg PO HS [facility] PRN Reason: Protocol Stop: 01/22/18 22:01 Last Admin: 01/17/18 21:35 Dose: 0.25 mg Amlodipine Besylate (Norvasc) 10 mg PO DAILY [facility] PRN Reason: Protocol Last Admin: 01/17/18 09:50 Dose: 10 mg Aspirin (Aspirin Chewable) 81 mg PO 0800 [facility] PRN Reason: Protocol Last Admin: 01/18/18 08:13 Dose: 81 mg Azithromycin (Zithromax) 500 mg PO DAILY [facility] PRN Reason: Protocol Last Admin: 01/17/18 09:51 Dose: 500 mg Docusate Sodium (Colace) 100 mg PO BID [facility] Last Admin: 01/17/18 17:17 Dose: 100 mg Folic Acid (Folic Acid) 1 mg PO DAILY [facility] PRN Reason: Protocol Last Admin: 01/17/18 09:49 Dose: 1 mg Hydralazine HCl (Apresoline) 50 mg PO TID [facility] PRN Reason: Protocol Last Admin: 01/17/18 17:16 Dose: 50 mg Hydrocortisone (Anusol-Hc) 25 mg RC BID [facility] Last Admin: 01/17/18 17:15 Dose: Not Given Hydrocortisone (Anusol-Hc) 0 gm MS BID [facility] PRN Reason: Protocol Stop: 01/24/18 11:46 Last Admin: 01/17/18 17:15 Dose: 1 applic Lidocaine HCl (Xylocaine 2%) 0 ea TOP PRN PRN PRN Reason: Constipation Metoprolol Tartrate (Lopressor) 50 mg PO 0800,1800 [facility] PRN Reason: Protocol Last Admin: 01/18/18 08:14 Dose: 50 mg Olopatadine HCl (Patanol 0.1% Opht Soln) 0 ml OU BID [facility] PRN Reason: Protocol Last Admin: 01/17/18 17:19 Dose: 1 drop Pantoprazole Sodium (Protonix Ec Tab) 40 mg PO 0600 [facility] PRN Reason: Protocol Last Admin: 01/18/18 06:07 Dose: 40 mg Polyethylene Glycol (Miralax) 17 gm PO BID [facility] Last Admin: 01/17/18 17:19 Dose: 17 gm - Labs Labs: 01/18/18 06:00 01/18/18 08:15 - Constitutional Appears: Non-toxic, No Acute Distress - Head Exam Head Exam: ATRAUMATIC, NORMAL INSPECTION, NORMOCEPHALIC - Eye Exam Eye Exam: EOMI, Normal appearance Pupil Exam: NORMAL ACCOMODATION, PERRL - ENT Exam ENT Exam: Mucous Membranes Moist - Neck Exam Neck Exam: Full ROM, Normal Inspection - Respiratory Exam Respiratory Exam: Clear to Ausculation Bilateral, NORMAL BREATHING PATTERN - Cardiovascular Exam Cardiovascular Exam: REGULAR RHYTHM, +S1, +S2 - GI/Abdominal Exam GI & Abdominal Exam: Soft, Normal Bowel Sounds - Rectal Exam Rectal Exam: Hemorrhoids Additional comments: anal fissure - Extremities Exam Extremities Exam: Full ROM, Normal Inspection - Back Exam Back Exam: NORMAL INSPECTION - Neurological Exam Neurological Exam: Alert, Awake, Oriented x3 - Psychiatric Exam Psychiatric exam: Normal Affect, Normal Mood - Skin Skin Exam: Dry, Intact, Normal Color, Warm Assessment and Plan - Assessment and Plan (Free Text) Assessment: This is a 78yo male with PMH of Hepatocellular carcinoma s/p right lobectomy 2016 at [place] with recent finding of spine metastases tentative radiation therapy, Lower GI bleed 2/2 post-polypectomy colonic ulcers 02/2014 (off Plavix since that time), PVD on Aspirin, HTN, HLD, and T2DM presenting with shortness of breath. Pt was found to be anemia s/p 2U pRBCs on 01/09/18. Initial GI consultation for GI bleed. Recently left AMA on 12/31/17 with presentation of melena with acute anemia requiring 2U pRBCs s/p EGD showing H. pylori negative gastritis. Patient refused colonoscopy and left AMA. Patient was scheduled for outpatient colonoscopy with Dr. Fuentes on 01/08/18 but missed appointment due to current admission. Colonoscopy 02/[address] Larsen for lower GI bleed showed multiple post- polypectomy colonic ulcers with no acute bleeding s/p epinephrine injections and /or hemoclips. Colonoscopy 08/[address] Noel showed 8mm ascending polyp and 4mm transverse polyp not removed due to anticoagulation at that time, small/ large diverticulosis, and internal hemorrhoids. Endorses repeat colonoscopy [address] Larsen stated to be normal. 1. Anemia 2. Rectal bleeding 3. HCAP 4. Anal fissure/hemorrhoids Plan: -Continue supportive care -No rectal/GI bleeding, Hgb trending down, hemodynamically stable -Possible GI Bleed 2/2 AVMs/polyps/diverticular/hemorrhoidal -s/p 2U pRBCs on 01/09/18 Hb 7.4 with appropriate response to 9.3 -Monitor H/H closely as trending down, may need transfusion if Hgb<7 -Previously scheduled outpatient colonoscopy with Dr. Fuentes on 01/08/18 missed due to current admission -After discussion with Dr. Ornelas who prefers pt gets a colonoscopy upon discharge from TCU which will be January 21 -Recommend anusol and lidocaine cream for anal fissure and hemorrhoids -Colonoscopy scheduled for SaturdayJanuary 21 upon discharge from TCU -Plan for bowel prep on Saturday -Will continue to follow closely <Blake Fuentes - Last Filed: 01/18/18 12:33> Objective - Vital Signs/Intake and Output Vital Signs (last 24 hours): Temp Pulse Resp BP Pulse Ox 98.7 F 84 20 143/57 L 90 L 01/17/18 16:00 01/18/18 08:14 01/18/18 00:00 01/18/18 10:56 01/18/18 00:00 - Medications Medications: Current Medications Albuterol/Ipratropium (Duoneb 3 Mg/0.5 Mg (3 Ml) Ud) 3 ml IH [id number] [facility] PRN Reason: Protocol Last Admin: 01/18/18 08:53 Dose: 3 ml Alprazolam (Xanax) 0.25 mg PO HS [facility]US PRN Reason: Protocol Stop: 01/22/18 22:01 Last Admin: 01/17/18 21:35 Dose: 0.25 mg Amlodipine Besylate (Norvasc) 10 mg PO DAILY [facility] PRN Reason: Protocol Last Admin: 01/18/18 10:56 Dose: 10 mg Aspirin (Aspirin Chewable) 81 mg PO 0800 [facility] PRN Reason: Protocol Last Admin: 01/18/18 08:13 Dose: 81 mg Azithromycin (Zithromax) 500 mg PO DAILY [facility] PRN Reason: Protocol Last Admin: 01/18/18 10:57 Dose: 500 mg Docusate Sodium (Colace) 100 mg PO BID [facility] Last Admin: 01/18/18 10:56 Dose: 100 mg Folic Acid (Folic Acid) 1 mg PO DAILY [facility] PRN Reason: Protocol Last Admin: 01/18/18 10:56 Dose: 1 mg Hydralazine HCl (Apresoline) 50 mg PO TID [facility] PRN Reason: Protocol Last Admin: 01/18/18 10:56 Dose: 50 mg Hydrocortisone (Anusol-Hc) 25 mg RC BID [facility] Last Admin: 01/18/18 10:56 Dose: Not Given Hydrocortisone (Anusol-Hc) 0 gm MS BID [facility] PRN Reason: Protocol Stop: 01/24/18 11:46 Last Admin: 01/18/18 10:56 Dose: 1 applic Lidocaine HCl (Xylocaine 2%) 0 ea TOP PRN PRN PRN Reason: Constipation Metoprolol Tartrate (Lopressor) 50 mg PO 0800,1800 [facility] PRN Reason: Protocol Last Admin: 01/18/18 08:14 Dose: 50 mg Olopatadine HCl (Patanol 0.1% Opht Soln) 0 ml OU BID [facility] PRN Reason: Protocol Last Admin: 01/18/18 10:57 Dose: 1 drop Pantoprazole Sodium (Protonix Ec Tab) 40 mg PO 0600 [facility] PRN Reason: Protocol Last Admin: 01/18/18 06:07 Dose: 40 mg Polyethylene Glycol (Miralax) 17 gm PO BID [facility] Last Admin: 01/18/18 10:56 Dose: 17 gm - Labs Labs: 01/18/18 06:00 01/18/18 08:15 Attending/Attestation - Attestation I have personally seen and examined this patient.: Yes I have fully participated in the care of the patient.: Yes I have reviewed all pertinent clinical information, including history, physical exam and plan: Yes Notes (Text): 01/18/18 12:33 78 year old male with h/o HCC s/p resection admitted with anemia / rectal bleeding, s/p unremarkable egd. Will plan for colonoscopy saturday. Prep saturday.
--- NOTE | 2018-01-18 18:14 | PN ---
DATE: 01/18/2018 REFERRING PHYSICIAN: Nai Ornelas MD SUBJECTIVE: The patient is out of bed to chair. Night was unremarkable. Has one bowel movement this morning. Cough is better. No shortness of breath. No abdominal pain. No dysuria. No leg pain or leg swelling. OBJECTIVE: GENERAL: In no acute distress. VITAL SIGNS: Temperature is 99, heart rate 80, respiratory rate is 20, blood pressure 141/54, pulse ox 95% on 2 liters nasal cannula. HEENT: Moist mucous membrane. Crowded airway. NECK: Supple. No JVD. LUNGS: Have a fair airflow with rhonchi. HEART: S1 and S2. ABDOMEN: Soft, nontender. No organomegaly. EXTREMITIES: There is no edema. NEUROLOGICAL: Awake and alert. Follows simple command. MEDICATIONS: He is on Anusol twice a day, hydralazine 50 mg three times a day, aspirin 81 mg daily, Colace 100 mg twice a day, DuoNeb every 6 hours [id number], folic acid 1 mg daily, metoprolol tartrate 50 mg twice a day, MiraLax 17 g twice a day, Norvasc 10 mg daily, Protonix 40 mg daily, Xanax 0.25 mg at bedtime, Zithromax 500 mg daily. LABORATORY DATA: Shows hemoglobin 7.7, hematocrit 23.3, WBC is 7.1, platelet is 109. Sodium 143, potassium 4.6, chloride 107, bicarbonate 21, BUN 47, creatinine 4.0, glucose 158, calcium is 9.4. IMPRESSION AND PLAN: Pulmonary infiltrate, which is resolved; chronic obstructive lung disease; hypertension; diabetes; metastatic liver cancer; history of esophageal varices; gastrointestinal bleed; metastatic disease to spine requiring radiation in the past; hyperlipidemia; obesity; renal failure; may have hemorrhoids. Pulmonary point of view, doing okay. Need to continue. Follow H and H. Seen by GI. Continue bronchodilator, sleep apnea precaution; If sedated, needs close cardiopulmonary monitoring. High risk for sleep apnea. Follow up labs in the morning. Thank you and we will follow with you. Feng Connell MD [facility] # [id number]
[2018-01-19] MEDS: Albuterol-Ipratrop 3 mg / 0.5 (3 ml) UD IH SCH ×4 (02:02→20:30)
[2018-01-19] MEDS: Pantoprazole 40 mg EC Tab PO SCH (05:25)
[2018-01-19 07:45] LABS: HEMOGLOBIN 7.4 g/dL (14.0-18.0); MEAN CELL VOLUME 85.9 fl (80.0-105.0); MEAN CORPUSCULAR HEMOGLOBIN 28.2 pg (25.0-35.0); MEAN CORPUSCULAR HGB CONC 32.9 g/dl (31.0-37.0); MEAN PLATELET VOLUME 11.5 fl (7.0-11.0); RBC 2.62 10^6/uL (3.5-6.1); RED CELL DISTRIBUTION WIDTH 15.8 % (11.5-14.5)
[2018-01-19] MEDS: Hydrocortisone 2.5% Rectal Cream(30 gm) PR SCH ×2 (10:00→17:42)
[2018-01-19] MEDS: POLYETHYLENE GLYCOL 3350 17 GM/Dose PACKET PO SCH ×2 (10:01→17:43)
[2018-01-19] MEDS: Olopatadine 0.1% Opht Sol OU SCH ×2 (10:02→17:41)
--- NOTE | 2018-01-19 16:09 | PN ---
DATE: 01/19/2018 LOCATION: Room 316. SUBJECTIVE: This is a 78-year-old male with recent bouts of symptomatic hypoglycemia and has now improved clinically and metabolically as noted thereof. His oral intake has been variable, but improved and the glucose values overnight have ranged from 109 to 113 and 127 mg/dL. His latest chemistries showed a BUN of 47, sodium 143, potassium 4.6, chloride is 107, CO2 is 21, glucose 158 and creatinine is 4. So, at this time, we will hold off any kind of oral hypoglycemic therapy for now as his glucose values have re-stabilized metabolically as noted. We will obtain serial chemistries and supplement accordingly as needed. We will continue also the low dose correction scale. Receive coverage only above 300 as indicated. We will obtain serial chemistries and supplement accordingly as needed. We will follow. Gertrude Burkett MD
--- NOTE | 2018-01-19 19:50 | PN ---
DATE: 01/19/2018 PULMONARY PROGRESS NOTE REFERRING PHYSICIAN: Nai Ornelas MD. SUBJECTIVE: The patient is sitting up in a chair. Night was unremarkable. Not very compliant with the CPAP. No headache. No rhinitis. No abdominal pain. No diarrhea. No melena. No leg pain or leg swelling. Last bowel movement was yesterday. PHYSICAL EXAMINATION: GENERAL: In no acute distress. VITAL SIGNS: Temperature is 98, heart rate is 81, respiratory rate is 18, blood pressure 156/59, pulse ox 95% on room air. HEENT: Moist mucous membrane. Crowded airway. Mallampati score is 4. NECK: Supple. JVD. LUNGS: Have a fair airflow with rhonchi. HEART: S1 and S2. ABDOMEN: Soft, nontender. No organomegaly. EXTREMITIES: No edema. NEUROLOGIC: Awake, alert, and follows simple command. MEDICATIONS: He is on Anusol twice a day, hydralazine 50 mg three times a day, aspirin 81 mg daily, Colace 100 mg twice a day, DuoNeb every 6 hours [id number], folic acid 1 mg daily, metoprolol tartrate 50 mg twice a day, MiraLax 17 g twice a day, Norvasc 10 mg daily, Protonix 40 mg daily, and Xanax 0.25 mg at bedtime. LABORATORY DATA: Shows hemoglobin 7.4, hematocrit 22.4, WBC 6, platelet is 108. Blood sugar this morning 130. IMPRESSION AND PLAN: Pulmonary infiltrate which has been resolved, chronic obstructive lung disease, hypertension, diabetes, metastatic liver cancer to spine requiring radiation, esophageal varices, gastrointestinal bleed, hyperlipidemia, obesity, renal failure. Pulmonary point of view, doing okay. Sleep apnea precaution. Scheduled for colonoscopy early next week. Continue stool softener. Gastric prophylaxis. Sequential compression devices to lower extremity. Follow up labs in the morning. Thank you and we will follow with you. Feng Connell MD
[2018-01-20] MEDS: Albuterol-Ipratrop 3 mg / 0.5 (3 ml) UD IH SCH ×2 (02:15→07:22)
--- NOTE | 2018-01-20 02:23 | PN ---
DATE: 01/18/2018 SUBJECTIVE: The patient is 78-year-old male. The patient was seen and examined on the bedside on 01/18/2018, sitting on the chair. was sitting on the bedside also. No nausea, vomiting, diarrhea. No hematuria or hematochezia. No swelling of the legs. No chest pain. No palpitation. No headache. No dizziness. PHYSICAL EXAMINATION: VITAL SIGNS: Temperature 99, heart rate 80, respiratory rate 20, blood pressure 140/54, pulse oximetry 95% on 2 L nasal cannula. HEENT: Head normocephalic, atraumatic. Eyes PERRLA. Extraocular muscles intact. Conjunctivae clear. Nose patent. Mucous membrane moist. NECK: Supple. No carotid bruit. No JVD or thyromegaly. CHEST: Bilaterally symmetrical. HEART: S1 and S2 positive. LUNGS: Clear to auscultation. ABDOMEN: Soft. Bowel sounds positive. No organomegaly. EXTREMITIES: No edema. No cyanosis. NEUROLOGICAL: The patient is awake and alert. Follows simple commands. LABORATORY DATA: Hemoglobin 7.7, hematocrit 23.3, white blood cells 7.1, platelets 109. Sodium 143, potassium 4.6, BUN 47, creatinine 4, glucose 158. MEDICATIONS: Anusol, hydralazine, aspirin, Colace, DuoNeb, MiraLax, Norvasc, Protonix, Xanax, Zithromax. ASSESSMENT AND PLAN: Mr. Cristopher Muñoz, 78-year-old male with history of multiple medical problems, pulmonary infiltrates that is resolved on x-rays, chronic obstructive pulmonary disease, hypertension, diabetes mellitus, cancer of the liver with metastasis, history of esophageal varices, gastroesophageal reflux disease, dyspepsia, obesity, renal insufficiency, history of hemorrhoids, using Anusol, anemia on top of hemoglobin. Needs blood transfusion. Continued falling hemoglobin and hematocrit. Upon discharge of the patient from Transitional Care Unit, they will do colonoscopy and we will follow up. Nai Ornelas MD
[2018-01-20] MEDS: Pantoprazole 40 mg EC Tab PO SCH (06:28)
--- NOTE | 2018-01-20 06:38 | CP.PCM.PN ---
<Oliver Evans - Last Filed: 01/20/18 09:02> Subjective - Date & Time of Evaluation Date of Evaluation: 01/20/18 Time of Evaluation: 07:25 - Subjective Subjective: Subjective: Patient seen and examined. No acute events overnight. Denies blood per rectum. Tolerating diet. Offers no new complaints at this time. Denies fever, chills, chest pain, SOB, abdominal pain, nausea, vomiting, diarrhea, and constipation. Physical Examination: - Constitutional Appears: Non-toxic, No Acute Distress - Head Exam Head Exam: ATRAUMATIC - Eye Exam Eye Exam: EOMI - ENT Exam ENT Exam: Mucous Membranes Moist - Neck Exam Neck exam: Positive for: Full Rom - Respiratory Exam Respiratory Exam: NORMAL BREATHING PATTERN - Cardiovascular Exam Cardiovascular Exam: S1, +S2 - GI/Abdominal Exam GI & Abdominal Exam: Normal Bowel Sounds, Soft absent: Distended, Firm, Guarding, Organomegaly - Rectal Exam Additional comments: sphincter has sufficient tone to grasp, malik of the mucosa are smooth, brown soft stool, no melena or hematochezia - Extremities Exam Extremities exam: Positive for: normal inspection - Neurological Exam Neurological exam: Alert, Oriented x3 - Psychiatric Exam Psychiatric exam: Normal Affect, Normal Mood - Skin Skin Exam: Dry, Intact, Normal Color, Warm Assessment and Plan: Patient is a 78 year old male with past medical history of hepatocellular carcinoma s/p right lobectomy 2016 at [place] with recent finding of spine metastases tentative radiation therapy, Lower GI bleed 2/2 post-polypectomy colonic ulcers 02/2014 (off Plavix since that time), PVD on Aspirin, HTN, HLD, and T2DM who was admitted for evaluation and treatment of shortness of breath secondary to anemia. Patient was transfused 2U pRBCs on 01/09/18. GI was consulted for potential GI bleed. It is important to note that patient underwent a colonoscopy 02/[address] Larsen for lower GI bleed which showed multiple post-polypectomy colonic ulcers with no acute bleeding. Another colonoscopy was performed on 08/[address] Noel which showed an 8mm ascending polyp and 4mm transverse polyp which were not removed due to anticoagulation at that time, small/large diverticulosis , and internal hemorrhoids. Patient endorsed that a repeat colonoscopy was performed on 02/[address] Larsen which he stated is normal. Additionally patient was hospitalized in 12/2017 for treatment of melena with acute anemia requiring 2U pRBCs. During that hospitalization he underwent an EGD showing H. pylori negative gastritis however left AMA after refusing colonoscopy. Patient was scheduled for outpatient colonoscopy with Dr. Fuentes on 01/08/18 but missed appointment due to current admission. 1. Anemia 2. Rectal bleeding 3. HCAP 4. Anal fissure/hemorrhoids Plan: - hemoglobin 6.7- 2 units pRBCs ordered for transfusion - monitor H/H closely as it is trending down, CBC ordered for 6:00pm on 2017 will follow up, may need additional transfusion if Hgb<7 - patient started on clear liquid diet - GI prep golytely to be started today - colonoscopy scheduled for SaturdayJanuary 21 upon discharge from TCU - recommend anusol and lidocaine cream for anal fissure and hemorrhoids - will continue to follow closely Patient seen, case discussed with, and plan approved by attending physician, Dr. Noel. Objective - Vital Signs/Intake and Output Vital Signs (last 24 hours): Temp Pulse Resp BP Pulse Ox 99.1 F 81 18 156/59 H 95 01/19/18 14:33 01/19/18 17:43 01/19/18 14:33 01/19/18 17:43 01/19/18 14:33 Intake and Output: 01/19/18 01/20/18 18:59 06:59 Intake Total 280 Balance 280 - Medications Medications: Current Medications Albuterol/Ipratropium (Duoneb 3 Mg/0.5 Mg (3 Ml) Ud) 3 ml IH [id number] [facility]US PRN Reason: Protocol Last Admin: 01/20/18 02:15 Dose: 3 ml Alprazolam (Xanax) 0.25 mg PO HS [facility] PRN Reason: Protocol Stop: 01/22/18 22:01 Last Admin: 01/19/18 22:05 Dose: 0.25 mg Amlodipine Besylate (Norvasc) 10 mg PO DAILY [facility] PRN Reason: Protocol Last Admin: 01/19/18 10:01 Dose: 10 mg Aspirin (Aspirin Chewable) 81 mg PO 0800 [facility] PRN Reason: Protocol Last Admin: 01/19/18 08:23 Dose: 81 mg Docusate Sodium (Colace) 100 mg PO BID [facility] Last Admin: 01/19/18 17:43 Dose: 100 mg Folic Acid (Folic Acid) 1 mg PO DAILY [facility] PRN Reason: Protocol Last Admin: 01/19/18 10:00 Dose: 1 mg Hydralazine HCl (Apresoline) 50 mg PO TID [facility] PRN Reason: Protocol Last Admin: 01/19/18 17:42 Dose: 50 mg Hydrocortisone (Anusol-Hc) 25 mg RC BID [facility] Last Admin: 01/19/18 17:43 Dose: Not Given Hydrocortisone (Anusol-Hc) 0 gm CO BID [facility] PRN Reason: Protocol Stop: 01/24/18 11:46 Last Admin: 01/19/18 17:42 Dose: 1 applic Lidocaine HCl (Xylocaine 2%) 0 ea TOP PRN PRN PRN Reason: Constipation Metoprolol Tartrate (Lopressor) 50 mg PO 0800,1800 [facility] PRN Reason: Protocol Last Admin: 01/19/18 17:43 Dose: 50 mg Olopatadine HCl (Patanol 0.1% Opht Soln) 0 ml OU BID [facility] PRN Reason: Protocol Last Admin: 01/19/18 17:41 Dose: 1 drop Pantoprazole Sodium (Protonix Ec Tab) 40 mg PO 0600 [facility] PRN Reason: Protocol Last Admin: 01/20/18 06:28 Dose: 40 mg Polyethylene Glycol (Miralax) 17 gm PO BID [facility] Last Admin: 01/19/18 17:43 Dose: 17 gm - Labs Labs: 01/19/18 07:39 01/18/18 08:15 <Bradley Noel - Last Filed: 01/20/18 09:53> Objective - Vital Signs/Intake and Output Vital Signs (last 24 hours): Temp Pulse Resp BP Pulse Ox 98.2 F 102 H 20 174/63 H 96 01/20/18 06:00 01/20/18 09:00 01/20/18 06:00 01/20/18 09:01 01/20/18 06:00 Intake and Output: 01/20/18 01/20/18 06:59 18:59 Intake Total 280 Balance 280 - Medications Medications: Current Medications Albuterol/Ipratropium (Duoneb 3 Mg/0.5 Mg (3 Ml) Ud) 3 ml IH [id number] SEAMUS PRN Reason: Protocol Last Admin: 01/20/18 07:22 Dose: 3 ml Alprazolam (Xanax) 0.25 mg PO HS [facility] PRN Reason: Protocol Stop: 01/22/18 22:01 Last Admin: 01/19/18 22:05 Dose: 0.25 mg Amlodipine Besylate (Norvasc) 10 mg PO DAILY [facility] PRN Reason: Protocol Last Admin: 01/20/18 09:01 Dose: 10 mg Aspirin (Aspirin Chewable) 81 mg PO 0800 [facility] PRN Reason: Protocol Last Admin: 01/20/18 08:46 Dose: Not Given Bisacodyl (Dulcolax) 10 mg PO ONCE ONE Stop: 01/20/18 18:01 Folic Acid (Folic Acid) 1 mg PO DAILY [facility] PRN Reason: Protocol Last Admin: 01/20/18 09:01 Dose: 1 mg Hydralazine HCl (Apresoline) 50 mg PO TID [facility] PRN Reason: Protocol Last Admin: 01/20/18 09:00 Dose: 50 mg Hydrocortisone (Anusol-Hc) 25 mg RC BID [facility] Last Admin: 01/19/18 17:43 Dose: Not Given Hydrocortisone (Anusol-Hc) 0 gm CO BID [facility] PRN Reason: Protocol Stop: 01/24/18 11:46 Last Admin: 01/19/18 17:42 Dose: 1 applic Lidocaine HCl (Xylocaine 2%) 0 ea TOP PRN PRN PRN Reason: Constipation Metoprolol Tartrate (Lopressor) 50 mg PO 0800,1800 [facility] PRN Reason: Protocol Last Admin: 01/20/18 09:00 Dose: 50 mg Olopatadine HCl (Patanol 0.1% Opht Soln) 0 ml OU BID [facility] PRN Reason: Protocol Last Admin: 01/20/18 09:01 Dose: 1 drop Pantoprazole Sodium (Protonix Ec Tab) 40 mg PO 0600 [facility] PRN Reason: Protocol Last Admin: 01/20/18 06:28 Dose: 40 mg Polyethylene Glycol/Electrolytes (Golytely) 4,000 ml PO ONCE ONE Stop: 01/20/18 13:01 - Labs Labs: 01/20/18 06:30 01/18/18 08:15 Attending/Attestation - Attestation I have personally seen and examined this patient.: Yes I have fully participated in the care of the patient.: Yes I have reviewed all pertinent clinical information, including history, physical exam and plan: Yes Notes (Text): 01/20/18 09:50 I have seen and examined patient with GI fellow and medical scientist. No acute events overnight, he is seen sitting in chair, appears comfortable. He denies abdominal pain, nausea, vomiting, fever/chills, or rectal bleeding. Tolerating PO liquids without difficulty. 12 point review of systems performed, negative aside from mentioned above. DM / HTN Chronic anemia Pneumonia - Liquid diet as tolerated - H/H trending down, though no overt bleeding noted, continue to monitor - Patient to receive PRBC transfusion today - Given progressively worsening anemia, will plan for colonoscopy evaluation tomorrow. Golytely bowel preparation today, NPO after midnight.
[2018-01-20 06:49] VITALS: RESP 20; TEMP 98.2; O2SAT 96
[2018-01-20 07:12] LABS: MEAN CELL VOLUME 85.8 fl (80.0-105.0); MEAN CORPUSCULAR HEMOGLOBIN 27.9 pg (25.0-35.0); MEAN CORPUSCULAR HGB CONC 32.5 g/dl (31.0-37.0); MEAN PLATELET VOLUME 11.5 fl (7.0-11.0); RBC 2.4 10^6/uL (3.5-6.1)
[2018-01-20 07:21] LABS: HEMOGLOBIN 6.7 g/dL (14.0-18.0)
[2018-01-20] MEDS: Olopatadine 0.1% Opht Sol OU SCH (09:01)
[2018-01-20 09:03] VITALS: BP 174/63; PULSE 102
--- NOTE | 2018-01-20 09:26 | PN ---
DATE: 01/19/2018 SUBJECTIVE: The patient is seen and examined at the bedside, looking comfortable. is sitting on the bedside also. No nausea, vomiting, diarrhea. No hematuria or hematochezia. . Appetite is okay. Bowel movement is fine. Tolerating food and physical therapy very well. PHYSICAL EXAMINATION: VITAL SIGNS: Temperature 98.1, pulse 51, blood pressure 156/59, respiratory rate 18. HEENT: Head normocephalic, atraumatic. Eyes PERRLA. Extraocular muscles intact. Conjunctivae clear. Nose patent. Mucous membrane moist. NECK: Supple. No carotid bruit. No JVD or thyromegaly. CHEST: Bilaterally symmetrical. HEART: S1 and S2 positive. LUNGS: Clear to auscultation. ABDOMEN: Soft. Bowel sounds positive. No organomegaly. EXTREMITIES: No edema. No cyanosis. NEUROLOGICAL: The patient is awake and alert. Moving all 4 extremities. No focal deficits. LABORATORY DATA: White blood cells 6, hemoglobin 7.4, hematocrit 22.5, platelets 108. Glucose 113. MEDICATIONS: Anusol, hydralazine, aspirin, Colace, DuoNeb, folic acid, Lopressor, MiraLax, Norvasc, eye drops, Protonix, Xanax. 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 Operations Support Analyst is on the case. According to enterprise security architect, no more hypoglycemic medications. History of gastrointestinal bleeding, drops. Packed RBC given. Now, hemoglobin is stable. Need colonoscopy. Will go on Saturday. Gastrointestinal and deep venous thrombosis prophylaxis. Repeat labs. We will follow up. Nai Ornelas MD
--- NOTE | 2018-01-20 09:29 | PN ---
DATE: 01/17/2018 SUBJECTIVE: The patient is seen and examined on the bedside, looking comfortable. was sitting on the bedside also. No nausea, vomiting, diarrhea. Having the swelling of the legs. No hematuria or hematochezia. No headache or dizziness. No chest pain. No palpitation. Feels better. Received a paced cell today. Had bowel movements. PHYSICAL EXAMINATION: VITAL SIGNS: Temperature 98, heart rate 90, respiratory rate 20, blood pressure 148/76, pulse oximetry 95% on room air. HEENT: Head normocephalic, atraumatic. Eyes PERRLA. Extraocular muscles intact. Conjunctivae clear. Nose patent. Mucous membrane moist. NECK: Supple. No carotid bruit. No JVD or thyromegaly. CHEST: Bilaterally symmetrical. HEART: S1 and S2 positive. LUNGS: Have fair airflow with a few rhonchi. ABDOMEN: Soft. Bowel sounds positive. No organomegaly. EXTREMITIES: No edema. No cyanosis. NEUROLOGICAL: The patient is awake and alert. Moving all 4 extremities with commands. LABORATORY DATA: Hemoglobin 7.5, hematocrit 22.3, white blood cells 7.9, platelets 105. Sodium 140, potassium 4.7, BUN 49, creatinine 3.7, glucose 134. MEDICATIONS: Anusol rectally, hydralazine, aspirin, Colace, DuoNeb, folic acid, metoprolol, MiraLax, Norvasc, Protonix, Xanax, Zithromax. ASSESSMENT AND PLAN: Mr. Cristopher Muñoz, a 78-year-old male with pulmonary infiltrates, which has been resolved, showed with repeat chest x-ray; anemia, status post packed red blood cells transfusion; chronic obstructive lung disease; hypertension; diabetes mellitus; metastatic liver disease; esophageal varices; history of metastasis to the spine, status post chemotherapy and radiotherapy; obesity; renal failure; constipation. Rule out gastrointestinal bleeding. Has hemorrhoids. Gastroenterology is on the case. Continue bronchodilators. Keep head elevated at 45 degrees. Aspiration precautions. Gastrointestinal and deep venous thrombosis prophylaxis. Repeat labs. We will follow up. Length of time discussion done with the . All questions answered. Nai Ornelas MD
[2018-01-20] MEDS: Hydrocortisone 2.5% Rectal Cream(30 gm) PR SCH (10:12)
--- NOTE | 2018-01-20 11:56 | PN ---
DATE: 01/20/2018 PULMONARY PROGRESS NOTE REFERRING PHYSICIAN: Nai Ornelas MD. SUBJECTIVE: Out of bed to chair. Night was unremarkable. Drop of hemoglobin from the last 24 hours. Has a dark stool, but no melena. No nausea. No vomiting. No cough. No leg pain. No leg swelling. OBJECTIVE: GENERAL: In no acute distress. VITAL SIGNS: Temperature is 98, heart rate is 102, respiratory rate is 20, blood pressure 174/63, pulse ox 95% on 3 L nasal cannula. HEENT: Moist mucous membrane. Crowded airway. NECK: Supple. No JVD. LUNGS: Have a fair airflow with few rhonchi. HEART: S1 and S2. ABDOMEN: Soft and nontender. No organomegaly. EXTREMITIES: No edema. NEUROLOGICAL: Awake and alert. Follows simple command. LABORATORY DATA: Shows hemoglobin 6.7, hematocrit 20.6, WBC 5, platelet is 107. Blood sugar is 109. MEDICATIONS: He is on Anusol twice a day, also on hydralazine 50 mg three times a day, aspirin 81 mg daily, Dulcolax p.r.n. basis, DuoNeb every 6 hours [id number], folic acid 1 mg daily, GoLYTELY 4000 mL p.o. ordered, metoprolol tartrate 50 mg twice a day, Norvasc 10 mg daily, Protonix 40 mg daily, Xanax 0.25 mg at bedtime. IMPRESSION AND PLAN: Pulmonary infiltrate, which IS resolved; obstructive lung disease, which is stable; hypertension; diabetes; metastatic liver cancer, involvement of the spine requiring radiation in the past; esophageal varices; gastrointestinal bleed; hyperlipidemia; obesity; renal failure. Pulmonary point of view, doing okay. Being transferred out of [facility] for further care including Gastroenterology followup. Need to transfuse. Follow up hemoglobin and hematocrit. Sleep apnea precaution. Yesterday, they did close cardiopulmonary monitoring. Thank you and we will follow with you. Feng Connell MD
[2018-01-20] MEDS ORDERED: Peg-Electrolyte Oral Soln 4L (Golytely) PO ONE (13:00)
[2018-01-20] MEDS ORDERED: Bisacodyl 5mg EC Tab PO ONE (18:00)
--- NOTE | 2018-01-20 21:45 | PN ---
ENDOCRINE FOLLOWUP NOTE DATE: LOCATION: [facility], room #316. SUMMARY: This is a 78-year-old male with recent uncontrolled type 2 diabetes, presenting here with symptomatic hypoglycemia and supervening symptomatic episodes of hypoglycemia that has improved dramatically with the discontinuation of his oral hypoglycemic therapy as noted. His oral intake has improved accordingly as noted also. His latest glucose values today have ranged from 109 to 125 and 130 mg per dL. His latest chemistries showed a BUN of 47, sodium 143, potassium 4.6, chloride 107, CO2 21, glucose 158, and creatinine 4.0. So at this time, we will concur with the present medical management with no resumption of his oral hypoglycemic therapy and he will follow with his medical doctor for outpatient medical and diabetic followup. Gertrude Burkett MD
== END 2018-01-20 10:45 | disposition short-term general hospital (02) | DRG 194 ==
LOC: TRCU 15:49
PROVIDERS: ADMIT Internal Medicine; ATTEND Internal Medicine
PROC: F07Z9ZZ Gait Training/Functional Ambulation Treatment (ICD-10-PCS; principal; 2018-01-14)
PROC: F07Z5ZZ Bed Mobility Treatment (ICD-10-PCS; 2018-01-14)
PROC: F07L6YZ Therapeutic Exercise Treatment of Musculoskeletal System - Lower Back / Lower Extremity using Other Equipment (ICD-10-PCS; 2018-01-14)
PROC: F07Z8ZZ Transfer Training Treatment (ICD-10-PCS; 2018-01-14)
PROC: F08Z2ZZ Grooming/Personal Hygiene Treatment (ICD-10-PCS; 2018-01-16)
PROC: F08Z1ZZ Dressing Techniques Treatment (ICD-10-PCS; 2018-01-16)
DX: J18.9 Pneumonia, unspecified organism (principal); J44.0 Chronic obstructive pulmonary disease with (acute) lower respiratory infection; C79.51 Secondary malignant neoplasm of bone; I50.9 Heart failure, unspecified; I11.0 Hypertensive heart disease with heart failure; E78.5 Hyperlipidemia, unspecified; D64.9 Anemia, unspecified; N19 Unspecified kidney failure; K64.8 Other hemorrhoids; E66.9 Obesity, unspecified; K59.00 Constipation, unspecified; E11.21 Type 2 diabetes mellitus with diabetic nephropathy; K60.2 Anal fissure, unspecified; K57.90 Diverticulosis of intestine, part unspecified, without perforation or abscess without bleeding; E78.00 Pure hypercholesterolemia, unspecified; E11.649 Type 2 diabetes mellitus with hypoglycemia without coma; K21.9 Gastro-esophageal reflux disease without esophagitis; E11.51 Type 2 diabetes mellitus with diabetic peripheral angiopathy without gangrene; F41.9 Anxiety disorder, unspecified; Z92.3 Personal history of irradiation; Z79.84 Long term (current) use of oral hypoglycemic drugs; Z85.05 Personal history of malignant neoplasm of liver; Z68.25 Body mass index [BMI] 25.0-25.9, adult

== ENCOUNTER 2018-01-20 10:55 | Observation (INO) | payer MEDICARE ==
[2018-01-20 11:03] VITALS: BMI 29.2
--- NOTE | 2018-01-20 11:23 | ED PDOC ---
Arrival/HPI - General Chief Complaint: Abnormal Labs Time Seen by Provider: 01/20/18 11:12 Historian: Patient, Other (Rehabilitation nurse) - History of Present Illness Time/Duration: Prior to Arrival Symptom Onset: Gradual Symptom Course: Unchanged Severity Level: Moderate Activities at Onset: Rest Associated Symptoms (Text): 01/20/18 11:21 Generalized weakness and fatigue. Dizziness and lightheadedness. Patient is scheduled for colonoscopy tomorrow. He has rectal bleeding. He was transferred to the emergency department from rehabilitation for anemia and transfusion. Past Medical History - Infectious Disease Hx of Infectious Diseases: None - Cardiac Hx Pacemaker: No - Pulmonary Hx Respiratory Disorders: Yes (USED TO SMOKE CIGARETTES) - Neurological Hx Paralysis: No - HEENT Hx HEENT Disorder: Yes Hx Cataracts: Yes (r eye sx, sched left eye for next month) Other/Comment: wears eyeglasses for reading - Renal Hx Renal Disorder: No - Endocrine/Metabolic Hx Diabetes Mellitus Type 2: Yes - Hematological/Oncological Hx Blood Transfusions: Yes Hx Blood Transfusion Reaction: No - Integumentary Hx Dermatological Disorder: No - Gastrointestinal Hx Gastrointestinal Disorders: (bm x2 watery today/drank juice) - Genitourinary/Gynecological Hx Genitourinary Disorders: No Hx Reproductive Disorders: No - Psychiatric Hx Substance Use: No - Surgical History Other/Comment: Liver lobectomy - Anesthesia Hx Anesthesia Reactions: No Hx Malignant Hyperthermia: No - Suicidal Assessment Feels Threatened In Home Enviroment: No Family/Social History - Physician Review Nursing Documentation Reviewed: Yes Family/Social History: Unknown Family HX Smoking Status: Former Smoker (Quit smoking 2 years ago) Hx Alcohol Use: Yes (RARE) Hx Substance Use: No Allergies/Home Meds Allergies/Adverse Reactions: Allergies amoxicillin Adverse Reaction (Verified 01/08/18 12:48) VOMITING Home Medications: Home Meds Medication Instructions Recorded Confirmed amLODIPine [Norvasc] 10 mg PO DAILY 08/27/15 01/13/18 Hydrochlorothiazide [HCTZ] 25 mg PO DAILY 09/22/15 01/13/18 Irbesartan [Avapro] 300 mg PO DAILY 09/22/15 01/13/18 Alprazolam [Xanax] 0.5 mg PO HS 08/01/16 01/13/18 Aspirin [Aspirin Chewable] 81 mg PO DAILY 08/01/16 01/13/18 Folic Acid 1 mg PO DAILY 08/01/16 01/13/18 Glimepiride [amaRYL] 2 mg PO BID 08/01/16 01/13/18 Metoprolol Tartrate [Lopressor] 50 mg PO BID 08/01/16 01/13/18 Review of Systems - Physician Review All systems were reviewed & negative as marked: Yes - Review of Systems Constitutional: Fatigue. absent: Fevers Respiratory: SOB Cardiovascular: absent: Chest Pain, Palpitations, Syncope Gastrointestinal: Hematochezia. absent: Abdominal Pain, Constipation, Diarrhea , Nausea, Vomiting Neurological: Dizziness. absent: Headache, Focal Weakness Physical Exam Vital Signs Temp Pulse Resp BP Pulse Ox 01/20/18 11:05 98.9 F 78 18 136/65 96 01/20/18 10:55 98.5 F 74 17 136/55 L 95 Temperature: Afebrile Blood Pressure: Normal Pulse: Regular Respiratory Rate: Normal Appearance: Positive for: Non-Toxic, Comfortable, Other (Chronically ill- appearing) Pain Distress: None Mental Status: Positive for: Alert and Oriented X 3 - Systems Exam Head: Present: Atraumatic, Normocephalic Pupils: Present: PERRL Extroacular Muscles: Present: EOMI Conjunctiva: Present: Normal Mouth: Present: Moist Mucous Membranes Pharnyx: No: ERYTHEMA, EXUDATE, TONSILS ENLARGED Neck: Present: Normal Range of Motion Respiratory/Chest: Present: Clear to Auscultation, Good Air Exchange, Decreased Breath Sounds. No: Respiratory Distress, Accessory Muscle Use Cardiovascular: Present: Regular Rate and Rhythm, Normal S1, S2. No: Murmurs Abdomen: No: Tenderness, Distention, Peritoneal Signs, Rebound, Guarding Upper Extremity: Present: Normal Inspection. No: Cyanosis, Edema Lower Extremity: Present: Normal Inspection. No: Edema Neurological: Present: GCS=15, CN II-XII Intact, Speech Normal, Motor Func Grossly Intact Skin: Present: Warm, Dry, Normal Color. No: Rashes Psychiatric: Present: Alert, Oriented x 3, Normal Insight, Normal Concentration Medical Decision Making ED Course and Treatment: 01/20/18 11:28 Discussed in detail with . Patient does not need any workup other than type and crossmatch. He is scheduled for a colonoscopy tomorrow with . His bowel prep is to begin this afternoon. He had his blood work drawn this morning and was found to be anemic and was sent to the emergency department for admission for transfusion of 2 units of packed red blood cells. Disposition/Present on Arrival - Present on Arrival Any Indicators Present on Arrival: No History of DVT/PE: No History of Uncontrolled Diabetes: No Urinary Catheter: No History of Decub. Ulcer: No History Surgical Site Infection Following: None - Disposition Have Diagnosis and Disposition been Completed?: Yes Diagnosis: GI bleed, Anemia Disposition: HOSPITALIZED Disposition Time: 11:30 Patient Plan: Observation Condition: FAIR Forms: [employer] (Peruvian)
[2018-01-20] MEDS ORDERED: Peg-Electrolyte Oral Soln 4L (Golytely) PO ONE (14:00)
[2018-01-20] MEDS ORDERED: Pneumococcal 23-Valent Vaccine IM ONE (17:41)
[2018-01-20] MEDS ORDERED: Bisacodyl 5mg EC Tab PO ONE (18:00)
[2018-01-20] MEDS: Olopatadine 0.1% Opht Sol OU SCH (18:15)
[2018-01-20] MEDS: Hydrocortisone 2.5% Rectal Cream(30 gm) PR SCH (20:37)
[2018-01-20] MEDS: Albuterol-Ipratrop 3 mg / 0.5 (3 ml) UD IH SCH (21:00)
[2018-01-21] MEDS: Albuterol-Ipratrop 3 mg / 0.5 (3 ml) UD IH SCH ×4 (02:45→20:25)
[2018-01-21] MEDS: Pantoprazole 40 mg EC Tab PO SCH (06:10)
[2018-01-21 07:07] LABS: BASO # 0.05 K/mm3 (0.0-2.0); BASO % 0.7 % (0.0-3.0); EOS # 0.2 (0.0-0.7); EOS % 2.6 % (1.5-5.0); GRAN # 4.17 (1.4-6.5); GRAN % 61.2 % (50.0-68.0); HEMOGLOBIN 9.4 g/dL (14.0-18.0); LYMPH % 15.1 % (22.0-35.0); MEAN CORPUSCULAR HEMOGLOBIN 28.6 pg (25.0-35.0); MEAN CORPUSCULAR HGB CONC 33.2 g/dl (31.0-37.0); MEAN PLATELET VOLUME 11.3 fl (7.0-11.0); MONO # 1.4 (0.1-0.6); MONO % 20.4 % (1.0-6.0); PLATELET COUNT 136 10^3/uL (120.0-450.0); RBC 3.29 10^6/uL (3.5-6.1); RED CELL DISTRIBUTION WIDTH 15.6 % (11.5-14.5); WHITE BLOOD COUNT 6.8 10^3/ul (4.5-11.0)
[2018-01-21 07:52] LABS: ALB/GLOB RATIO 1.2 (1.1-1.8); ALBUMIN 3.9 g/dL (3.0-4.8); CALCIUM 9.1 mg/dL (8.4-10.5)
[2018-01-21 08:13] LABS: NEUTROPHIL 64 % (50.0-70.0)
[2018-01-21 08:14] LABS: ATYPICAL LYMPHOCYTE 1 % (0.0-0.0); EOSINOPHIL 5 % (0.0-3.0); LYMPHOCYTE 16 % (22.0-35.0); MONOCYTE 14 % (1.0-6.0)
[2018-01-21 08:15] LABS: PLATELET ESTIMATE NORMAL (NORMAL)
[2018-01-21] MEDS: Olopatadine 0.1% Opht Sol OU SCH (11:00)
[2018-01-21] MEDS ORDERED: Midazolam 2 MG/2 ML VIAL ONE ×2 (12:45→13:13)
[2018-01-21] MEDS ORDERED: Lactated Ringer's 1,000 ML IV SCH (12:45)
[2018-01-21] MEDS ORDERED: Etomidate 20 mg/10ml Inj IV ONE (12:45)
[2018-01-21] MEDS ORDERED: Propofol 10 mg/ml Inj (20 ML) ONE ×2 (12:45→13:13)
[2018-01-21] MEDS: Hydrocortisone 2.5% Rectal Cream(30 gm) PR SCH ×2 (13:16→18:00)
[2018-01-21] MEDS ORDERED: Sodium Chloride 0.9% 1,000 ML IV SCH (13:45)
[2018-01-22] MEDS: Albuterol-Ipratrop 3 mg / 0.5 (3 ml) UD IH SCH ×3 (01:44→13:18)
[2018-01-22] MEDS: Pantoprazole 40 mg EC Tab PO SCH (05:39)
--- NOTE | 2018-01-22 06:42 | CP.PCM.PN ---
<Oliver Evans - Last Filed: 01/22/18 08:58> Subjective - Date & Time of Evaluation Date of Evaluation: 01/22/18 Time of Evaluation: 06:45 - Subjective Subjective: Subjective: Patient seen and examined at bedside. No acute events overnight. No new symptoms offered after colonoscopy yesterday. Denies blood per rectum. Tolerating diet. Denies fever, chills, chest pain, SOB, abdominal pain, nausea, vomiting, diarrhea, and constipation. Physical Examination: - Constitutional Appears: Non-toxic, No Acute Distress - Head Exam Head Exam: ATRAUMATIC - Eye Exam Eye Exam: EOMI - ENT Exam ENT Exam: Mucous Membranes Moist - Neck Exam Neck exam: Positive for: Full Rom - Respiratory Exam Respiratory Exam: NORMAL BREATHING PATTERN - Cardiovascular Exam Cardiovascular Exam: S1, +S2 - GI/Abdominal Exam GI & Abdominal Exam: Normal Bowel Sounds, Soft absent: Distended, Firm, Guarding, Organomegaly - Extremities Exam Extremities exam: Positive for: normal inspection - Neurological Exam Neurological exam: Alert, Oriented x3 - Psychiatric Exam Psychiatric exam: Normal Affect, Normal Mood - Skin Skin Exam: Dry, Intact, Normal Color, Warm Assessment and Plan: Patient is a 78 year old male with past medical history of hepatocellular carcinoma s/p right lobectomy 2016 at [place] with recent finding of spine metastases tentative radiation therapy, Lower GI bleed 2/2 post-polypectomy colonic ulcers 02/2014 (off Plavix since that time), PVD on Aspirin, HTN, HLD, and T2DM who was admitted for evaluation and treatment of shortness of breath secondary to anemia. Patient was transfused 2U pRBCs on 01/09/18. GI was consulted for potential GI bleed. It is important to note that patient underwent a colonoscopy 02/[address] Larsen for lower GI bleed which showed multiple post-polypectomy colonic ulcers with no acute bleeding. Another colonoscopy was performed on 08/[address] Noel which showed an 8mm ascending polyp and 4mm transverse polyp which were not removed due to anticoagulation at that time, small/large diverticulosis , and internal hemorrhoids. Patient endorsed that a repeat colonoscopy was performed on 02/[address] Larsen which he stated is normal. Additionally patient was hospitalized in 12/2017 for treatment of melena with acute anemia requiring 2U pRBCs. During that hospitalization he underwent an EGD showing H. pylori negative gastritis however left AMA after refusing colonoscopy. Patient was scheduled for outpatient colonoscopy with Dr. Fuentes on 01/08/18 but missed appointment due to current admission. Underwent colonoscopy on 01/22/18. Multiple polyps were found from cecum to rectum. Biopsies sent. Awaiting path report. Additionally a single colonic angioectasia was treated with argon plasma coagulation. 1. Anemia 2. Rectal bleeding 3. HCAP 4. Anal fissure/hemorrhoids 5. Colonic polyps Plan: - hemoglobin 8.6 from 9.4 - resume heart healthy diet - repeat colonoscopy in 1 year - follow up in outpatient setting to review path results Thank you for the opportunity in participating in the care of this patient. GI team will sign off at this time. Patient seen, case discussed with, and plan approved by attending physician, Dr. Sauer. Objective - Vital Signs/Intake and Output Vital Signs (last 24 hours): Temp Pulse Resp BP Pulse Ox 98.2 F 63 20 153/68 H 97 01/21/18 22:14 01/22/18 00:00 01/21/18 22:14 01/22/18 00:00 01/22/18 00:00 Intake and Output: 01/21/18 01/22/18 18:59 06:59 Intake Total 460 Output Total 0 Balance 460 - Medications Medications: Current Medications Albuterol/Ipratropium (Duoneb 3 Mg/0.5 Mg (3 Ml) Ud) 3 ml IH [id number] [facility] Last Admin: 01/22/18 01:44 Dose: 3 ml Alprazolam (Xanax) 0.5 mg PO [facility] PRN Reason: Protocol Last Admin: 01/21/18 21:51 Dose: 0.5 mg Amlodipine Besylate (Norvasc) 10 mg PO DAILY [facility] Last Admin: 01/21/18 09:19 Dose: 10 mg Folic Acid (Folic Acid) 1 mg PO DAILY [facility] Last Admin: 01/21/18 11:00 Dose: Not Given Glimepiride (Amaryl) 2 mg PO BID [facility] Last Admin: 01/21/18 18:00 Dose: Not Given Hydralazine HCl (Apresoline) 50 mg PO TID [facility] Last Admin: 01/21/18 17:01 Dose: 50 mg Hydrochlorothiazide (Hydrodiuril) 25 mg PO DAILY [facility] Last Admin: 01/21/18 11:00 Dose: Not Given Hydrocortisone (Anusol-Hc) 0 gm HI BID [facility] Last Admin: 01/21/18 18:00 Dose: Not Given Sodium Chloride (Sodium Chloride 0.9%) 1,000 mls @ 100 mls/hr IV .Q10H [facility] Losartan Potassium (Cozaar) 100 mg PO DAILY [facility] Last Admin: 01/21/18 11:00 Dose: Not Given Metoprolol Tartrate (Lopressor) 50 mg PO BID [facility] Last Admin: 01/21/18 17:01 Dose: 50 mg Olopatadine HCl (Patanol 0.1% Opht Soln) 0 ml OU BID [facility] Last Admin: 01/21/18 11:00 Dose: Not Given Pantoprazole Sodium (Protonix Ec Tab) 40 mg PO 0600 [facility] Last Admin: 01/22/18 05:39 Dose: 40 mg - Labs Labs: 01/21/18 06:45 01/21/18 06:45 <Anayeli Sauer - Last Filed: 01/22/18 13:53> Objective - Vital Signs/Intake and Output Vital Signs (last 24 hours): Temp Pulse Resp BP Pulse Ox 98 F 79 19 153/69 H 94 L 01/22/18 08:18 01/22/18 08:18 01/22/18 08:18 01/22/18 10:38 01/22/18 08:18 Intake and Output: 01/22/18 01/22/18 06:59 18:59 Intake Total 460 Output Total 0 Balance 460 - Labs Labs: 01/22/18 07:49 01/21/18 06:45 Attending/Attestation - Attestation I have personally seen and examined this patient.: Yes I have fully participated in the care of the patient.: Yes I have reviewed all pertinent clinical information, including history, physical exam and plan: Yes Notes (Text): 01/22/18 13:50 I have seen and examined patient with GI fellow and medical concierge. No acute events overnight, he is seen sitting in chair, appears comfortable, eating breakfast. He denies abdominal pain, nausea, vomiting, fever/chills, or rectal bleeding. He is s/p colonoscopy with 6 polyps removed and AVM s/p APC. He is cleared for discharge and will follow up with Dr Fuentes in office for polyp biopsy. Thank you for letting us participate in the care of your patient
[2018-01-22 07:57] LABS: HDL CHOLESTEROL 24 mg/dL (29-60); IRON 45 ug/dL (45-180)
[2018-01-22 08:07] LABS: % IRON SATURATION 22 % (20-55); TOTAL IRON BINDING CAPACITY 207 ug/dL (261-462)
--- NOTE | 2018-01-22 08:07 | CON ---
DATE: 01/21/2018 PULMONARY CONSULTATION REFERRING PHYSICIAN: Dr. Ornelas. REASON FOR CONSULTATION: Status post pneumonia, may have sleep apnea syndrome, anemia. HISTORY OF PRESENT ILLNESS: This is a 78-year-old gentleman with liver cancer, mets to the spine, requiring radiation therapy; history of lobectomy; esophageal varices; hypertension; diabetes; hyperlipidemia; was at [facility] with continuously dropping hemoglobin, became symptomatic, sent to ER where he was transfused and admitted to acute side of the hospital, seen by GI, scheduled for colonoscopy, originally was admitted to [facility] side with pneumonia, which resolved. May have sleep apnea syndrome, but not very compliant with the CPAP. No nausea or vomiting. PAST MEDICAL HISTORY: As per history of present illness. ALLERGIES: AMOXICILLIN. SOCIAL HISTORY: Former smoker. Denies any alcohol use. FAMILY HISTORY: No significant cardiopulmonary disease reported. MEDICATIONS: He is on Amaryl 2 mg twice a day, Anusol twice a day, hydralazine 50 mg three times a day, Cozaar 100 mg daily, DuoNeb every 6 hours, folic acid 1 mg daily, hydrochlorothiazide 25 mg daily, metoprolol tartrate 50 mg twice a day, Norvasc 10 mg daily, Protonix 40 mg daily, IV fluid normal saline 100 mL per hour, Xanax 0.5 mg at bedtime. REVIEW OF SYSTEMS: No headache, no rhinitis, no cough. Short of breath with exertion. No chest pain. No vomiting. No abdominal pain, has been having good bowel movement with colonoscopy prep. No leg pain or leg swelling. PHYSICAL EXAMINATION: GENERAL: Sitting on the side of the bed, in no acute distress. VITAL SIGNS: Temperature is 98, heart rate 69, respiratory rate is 20, blood pressure 160/59, pulse ox of 96% on nasal cannula. HEENT: Moist mucous membrane. Crowded airway. NECK: Supple. No JVD. LUNGS: Have fair airflow with rhonchi. HEART: S1 and S2. ABDOMEN: Soft, nontender. No organomegaly. EXTREMITIES: There is no edema. NEUROLOGIC: Awake, alert, follows simple commands. LABORATORY DATA: Shows hemoglobin 9.4, hematocrit 28.3, WBC 6.8, platelet count is 136. Sodium 147, potassium 4.4, chloride 108, bicarbonate 21, BUN 41, creatinine 3.8, glucose 104, calcium is 9.1, AST 89, ALT 120, alk phos is 98. Albumin is 3.9. IMPRESSION AND PLAN: Status post pneumonia, which is resolved; hypertension; diabetes; metastatic liver disease involving spine, requiring radiation therapy; history of lobectomy; gastrointestinal bleed; anemia, requiring transfusion; obesity; scheduled for endoscopy today and will have a colonoscopy. I spoke to , sleep apnea precaution . Careful with sedation. Upon discharge, outpatient sleep study and PFT. Fall precaution. Continue to follow hemoglobin and hematocrit closely. Need Oncology followup. Thank you and we will follow up with you. Feng Connell MD
[2018-01-22 08:08] LABS: LDL CHOLESTEROL 35 mg/dL (0-129)
[2018-01-22 08:19] VITALS: BP 153/69; PULSE 79; RESP 19; TEMP 98; O2SAT 94
[2018-01-22 08:27] LABS: HEMOGLOBIN 8.6 g/dL (14.0-18.0); MEAN CELL VOLUME 86.2 fl (80.0-105.0); MEAN CORPUSCULAR HEMOGLOBIN 28.2 pg (25.0-35.0); MEAN CORPUSCULAR HGB CONC 32.7 g/dl (31.0-37.0); MEAN PLATELET VOLUME 11.5 fl (7.0-11.0); RBC 3.05 10^6/uL (3.5-6.1); RED CELL DISTRIBUTION WIDTH 15.8 % (11.5-14.5); WHITE BLOOD COUNT 5.7 10^3/ul (4.5-11.0)
[2018-01-22] MEDS: Olopatadine 0.1% Opht Sol OU SCH (10:39)
[2018-01-22] MEDS ORDERED: Albuterol HFA 90 mcg/actuation (8 g) IH PRN (11:28)
[2018-01-22 12:41] LABS: FOLATE > 20.0 ng/mL
--- NOTE | 2018-01-22 15:02 | PN ---
DATE: 01/22/2018 PULMONARY PROGRESS NOTE REFERRING PHYSICIAN: Nai Ornelas MD. SUBJECTIVE: He is sitting at side of the bed. Night was unremarkable. Status post colonoscopy yesterday. There is no bowel movement since yesterday. No headache. No rhinitis. No nausea. No vomiting. No diarrhea. No leg pain. No leg swelling. OBJECTIVE: GENERAL: In no acute distress. VITAL SIGNS: Temperature is 98, heart rate is 79, respiratory rate is 18, blood pressure 153/69, pulse ox 94% on 2 L nasal cannula. HEENT: Moist mucous membrane. Crowded airway. Mallampati score is 4. NECK: Supple. No JVD. LUNGS: Have a fair airflow with rhonchi. HEART: S1 and S2. ABDOMEN: Soft and nontender. No organomegaly. EXTREMITIES: There is no edema. NEUROLOGICAL: Awake and alert. Follows simple command. MEDICATIONS: He is on glimepiride 2 mg twice a day, Anusol rectally twice a day, hydralazine 50 mg three times a day, Cozaar 100 mg daily, DuoNeb every 6 hours [id number], folic acid 1 mg daily, hydrochlorothiazide 25 mg daily, metoprolol tartrate 50 mg twice a day, Norvasc 10 mg daily, Protonix 40 mg daily, IV fluid normal saline at 100 mL per hour, Xanax 0.5 mg at bedtime. LABORATORY DATA: Shows hemoglobin 8.6, hematocrit 26.3, WBC 5.7, platelet is 133. Blood sugar is 148. Iron is 45, TIBC 207, cholesterol is 94, vitamin B12 is 771, folate is greater than 20. IMPRESSION AND PLAN: Status post pneumonia which is resolved; hypertension; diabetes; metastatic liver cancer involving the spine, being on radiation therapy, still waiting for the last radiation in [facility], status post colonoscopy with multiple colonic polyps removal, history of gastrointestinal bleed; anemia requiring transfusion. Medically, he is stable. Pulmonary point of view, doing well. Continue bronchodilators. Sleep apnea precaution. Keep head at 45 degrees. Outpatient sleep study and pulmonary function tests. Fall precaution. Follow up hemoglobin and hematocrit. Thank you and we will follow with you. Feng Connell MD
--- NOTE | 2018-01-23 09:18 | HP ---
DATE: 01/21/2018 CHIEF COMPLAINT: Fatigue, abdominal pain, anemia. HISTORY OF PRESENT ILLNESS: Mr. Cristopher Muñoz is a 78-year-old male who was actually admitted in [facility] Emergency Room last time for GI bleeding. Plan was to do colonoscopy. He signed against medical advice and left. Now, at this time, he came with coughing, shortness of breath, came to know he has pneumonia and severe anemia. Couple of packed RBCs given and antibiotics were given. Visual Merchandiser saw the patient. After getting antibiotics, he was better, then transferred to TCU. Plan was to complete the antibiotics there and do physical therapy and session on the TCU, we will do colonoscopy before sending patient to home, but at the end of the session, he had a drop of hemoglobin. Then patient was transferred to the ER for blood transfusion. Then, patient was brought to the medical floor. Two units of packed RBCs given. After that, patient went for colonoscopy and found to know patient has polyps, AVM and was taken care by DrElizabeth and patient was seen in the evening on his bed, looking comfortable. was sitting at the bedside also. Complaining about abdominal pain. PAST MEDICAL HISTORY: As above, eye surgery, renal insufficiency, anemia, diabetes mellitus, history of GI bleeding. FAMILY HISTORY: Father and mother, noncontributory. HABITS: Former smoker, quit 2 years ago. Alcohol, rare. Substance abuse, no. ALLERGIES: THE PATIENT IS ALLERGIC TO AMOXYCILLIN. HOME MEDICATIONS: Norvasc, HCTZ, Avapro, Xanax, aspirin, folic acid, Amaryl, metoprolol. REVIEW OF SYSTEMS: Patient was seen and examined at the bedside, looking comfortable. No nausea, vomiting or diarrhea. No hematuria or hematochezia. No swelling of the legs. Complaining about mild abdominal pain; otherwise, sleepy, arousable. is sitting at the bedside also. PHYSICAL EXAMINATION: VITAL SIGNS: Temperature 98.2, pulse 59, blood pressure 150/59, respiratory rate 20. HEENT: Head normocephalic, atraumatic. Eyes, PERRLA. Extraocular muscles intact. Conjunctivae clear. Nose patent. Mucous membrane moist. NECK: Supple. No carotid bruit. No JVD or thyromegaly. CHEST: Bilaterally symmetrical. HEART: S1 and S2 positive. LUNGS: Clear to auscultation. ABDOMEN: Soft. Bowel sounds present. No organomegaly. EXTREMITIES: No edema. No cyanosis. NEUROLOGICAL: The patient is sleepy, arousable. Moving all four extremities. LABORATORY DATA: White blood cells 6.2, hemoglobin 9.4, hematocrit 28.3, platelets 136. Sodium 147, potassium 4.4, BUN 41, creatinine 3.3, glucose 112. AST 89, ALT 20. ASSESSMENT AND PLAN: Mr. Cristopher Muñoz is a 78-year-old male with anemia, hyperchloremia, renal insufficiency, hypoglycemia, abnormal liver function test, went for colonoscopy on 01/21/2018. Colonoscopy with argon plasma coagulation with NS injection and polypectomy, and with biopsy. Waiting for the result. History of anemia, coronary artery disease, renal insufficiency, ejection fraction is very low. History of gastrointestinal bleeding, history of smoking in the past, diabetes mellitus, has liver lobectomy, history of liver cancer. repeat blood transfusion. We will repeat lab tomorrow, monitoring hemoglobin and hematocrit. We will follow up. Nai Ornelas MD ZOE
== END 2018-01-22 13:50 | disposition home or self-care (01) ==
LOC: ED 10:55 → ERH 11:27 → 5RSO 12:12 → ERH 12:16 → 5RSO 13:27
PROVIDERS: ADMIT Internal Medicine; ATTEND Internal Medicine
DX: K92.1 Melena (principal); I25.10 Atherosclerotic heart disease of native coronary artery without angina pectoris; D64.9 Anemia, unspecified; C79.51 Secondary malignant neoplasm of bone; N28.9 Disorder of kidney and ureter, unspecified; I10 Essential (primary) hypertension; E78.5 Hyperlipidemia, unspecified; I85.00 Esophageal varices without bleeding; E11.51 Type 2 diabetes mellitus with diabetic peripheral angiopathy without gangrene; K60.2 Anal fissure, unspecified; K57.30 Diverticulosis of large intestine without perforation or abscess without bleeding; K64.8 Other hemorrhoids; K62.1 Rectal polyp; K55.20 Angiodysplasia of colon without hemorrhage; E66.9 Obesity, unspecified; Z85.05 Personal history of malignant neoplasm of liver; D12.0 Benign neoplasm of cecum; D12.5 Benign neoplasm of sigmoid colon; D12.3 Benign neoplasm of transverse colon; Z86.010 Personal history of colon polyps; Z87.891 Personal history of nicotine dependence
CPT/HCPCS: 36415; 36430; 45380; 45381; 45385; 45388; 80053; 80061; 82607; 82746; 82948; 83540; 83550; 85025; 85027; 86850; 86900; 86920; 88305; 94640; 99283; G0378; J2001; J2250; J2704; J7040; P9016

== ENCOUNTER 2018-03-08 14:00 | Emergency (ER) | payer MEDICARE ==
[2018-03-08 14:10] VITALS: BMI 25.7
--- NOTE | 2018-03-08 15:22 | ED PDOC ---
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 As per , noted to have black stool when moving his bowels yesterday, and as per charting from last admission at [facility], became thrombocytopenic (plts 40's-60's) during his last admission and remained so. Also per , blood count from blood work obtained at HD yesterday was low enough that he was transfused 2 units pRBCs during HD yesterday, and only had 1100 cc drawn. Patient reports orthopnea, worsening baseline shortness of breath, dyspnea and dizziness on exertion. Reports unable to take more than 4 steps toward bathroom today before vision blacked out , and he had to be helped to place to sit by family. Denies actual syncope, but definite near-syncope, with rapid resolution of vision symptoms after sitting down and catching his breath. Reports no shortness of breath at rest currently, but does report worsening low-back pain at site where he had mets (s/ p radiation tx). Denies nausea, emesis, diarrhea. Reports initially able to make some urine after renal failure onset, but is now anuric (has been for several weeks now). PMH: as above PSH: left chest port-a-cath for HD Family Hx: non-contributory Social Hx: former smoker (quit 2 years ago), social EtOH, denies illicit drug use PMD: Dr. Karolina Evans Time/Duration: Other (2-3 days) Symptom Onset: Gradual Symptom Course: Worsening Activities at Onset: Other (worse with any exertion, now to point of near- syncopal episode with minimal exertion) Past Medical History - Provider Review Nursing Documentation Reviewed: Yes - Infectious Disease Hx of Infectious Diseases: None - Cardiac Hx Congestive Heart Failure: Yes - Pulmonary Hx Pneumonia: Yes - Neurological HX Cerebrovascular Accident: Yes - HEENT Hx HEENT Disorder: Yes Hx Cataracts: Yes (r eye sx, sched left eye for next month) Other/Comment: wears eyeglasses for reading - Renal Hx Renal Failure: Yes Other/Comment: Dialysis M/W/F - Endocrine/Metabolic Hx Diabetes Mellitus Type 2: Yes - Hematological/Oncological Hx Anemia: Yes - Integumentary Hx Dermatological Disorder: Yes Other/Comment: BILATERAL LEG EDEMA PITTING +2 MORE TO RIGHT LEG. SCRATCH ACEVEDO TO BACK OF LEG AND UPPER BACK.ITCHY. - Musculoskeletal/Rheumatological Hx Back Pain: Yes - Gastrointestinal Hx Gastrointestinal Disorders: Yes (bm x2 watery today/drank juice,GI BLEED, COLON POLYPS.CONSTIPATION) Other/Comment: LIVER MASS-LIVER CA LIVER LOBECTOMY - Genitourinary/Gynecological Hx Genitourinary Disorders: No - Psychiatric Hx Substance Use: No - Surgical History Other/Comment: 2016-surgical intervention at [facility] for Liver Cancer - Anesthesia Hx Anesthesia Reactions: No Hx Malignant Hyperthermia: No - Suicidal Assessment Feels Threatened In Home Enviroment: No Family/Social History - Physician Review Nursing Documentation Reviewed: Yes Family/Social History: Other (non-contributory) Smoking Status: Former Smoker Hx Alcohol Use: No Hx Substance Use: No Allergies/Home Meds Allergies/Adverse Reactions: Allergies No Known Allergies Allergy (Verified 02/19/18 23:19) Home Medications: Home Meds Medication Instructions Recorded Confirmed Glimepiride [amaRYL] 1 mg PO BID 08/01/16 03/07/18 Vitamin E 1 cap PO DAILY 02/19/18 03/07/18 ALPRAZolam [Xanax] 0.5 mg PO HS 03/07/18 03/07/18 Dexamethasone [Decadron] 4 mg PO QD7 03/07/18 03/07/18 Hydrochlorothiazide 25 mg PO DAILY 03/07/18 03/07/18 Oxycodone-Acetaminophen 5-325 1 tab PO Q12H PRN 03/07/18 03/07/18 Review of Systems - Review of Systems Constitutional: Fatigue. absent: Fevers, Night Sweats Eyes: Normal. absent: Vision Changes, Photophobia ENT: absent: Sore Throat, Rhinorrhea, Epistaxis, Sinus Congestion Respiratory: SOB. absent: Normal, Cough, Wheezing Cardiovascular: PLUMMER, Orthopnea, Syncope (near-syncope ). absent: Chest Pain, Palpitations Gastrointestinal: Normal. absent: Abdominal Pain, Constipation, Diarrhea, Vomiting, Appetite Changes Genitourinary Male: Other (anuric, ESRD on HD MWF). absent: Normal Musculoskeletal: Back Pain (chronic, worsening) Skin: Normal. absent: Rash, Pruritis, Laceration, Abscess Neurological: Normal. absent: Headache, Dizziness Endocrine: absent: Diaphoresis Physical Exam Vital Signs Reviewed: No Vital Signs Temp Pulse Resp BP Pulse Ox 03/08/18 16:01 18 03/08/18 14:09 97.9 F 73 18 145/58 L 98 Temperature: Afebrile Blood Pressure: Hypertensive Pulse: Regular Respiratory Rate: Normal Appearance: Positive for: Non-Toxic, Ill-Appearing, Uncomfortable Pain Distress: Mild Mental Status: Positive for: Alert and Oriented X 3 - Systems Exam Head: Present: Atraumatic, Normocephalic. No: Tenderness, Contusion, Swelling, Abrasion, Laceration Pupils: No: Pinpoint Extroacular Muscles: Present: EOMI Conjunctiva: Present: Other (pale conjunctival bilaterally). No: Injected, Icteric Mouth: Present: Moist Mucous Membranes, Normal Lips, Normal Tounge, Normal Teeth. No: Dry, Drooling Nose (External): Present: Atraumatic. No: Abrasion, Laceration Nose (Internal): Present: No Active Bleeding. No: Epistaxis Neck: Present: Normal Range of Motion, Trachea Midline. No: JVD Respiratory/Chest: Present: Decreased Breath Sounds (mildly decreased breath sounds all jo), Rales (faint bi-basilar rales), Other (no respiratory distress at rest, tachypnic with attempts to sit up, orthopnea/tachypnea when attempting to be laid flat). No: Clear to Auscultation, Good Air Exchange, Rhonchi Cardiovascular: Present: Regular Rate and Rhythm (at rest, rapidly tachycardic with any exertion), Normal S1, S2, Peripheal Pulses Present (+2 radials bilaterally, unable to palpate pedal pulses). No: Murmurs, Irregular Rhythm, Bradycardic Abdomen: Present: Distention (reports progressively worsening distention since onset of renal failure, no acute changes in last 3 days), Normal Bowel Sounds. No: Tenderness (reports discomfort at top of abdomen with walking, none at rest , none with palpation), Guarding Upper Extremity: Present: Normal Inspection, Normal ROM, NORMAL PULSES. No: Cyanosis, Edema, Tenderness, Swelling, Erythema, Deformity Lower Extremity: Present: Normal Inspection, NORMAL PULSES, Normal ROM. No: Edema, CALF TENDERNESS, Cyanosis, Tenderness, Swelling, Erythema, Deformity Neurological: Present: GCS=15, Speech Normal, Motor Func Grossly Intact Skin: Present: Warm, Dry, Normal Color. No: Rashes, Diaphoretic, Erythematous Psychiatric: Present: Alert, Oriented x 3, Normal Insight, Normal Concentration , Normal Affect, Normal Mood. No: Anxious, Agitated Medical Decision Making ED Course and Treatment: 03/08/18 15:29 Ddx: fluid overload 2/2 ESRD vs New-onset CHF vs PE BNP & Cardiac Iso ordered to r/o ACS and assess for fluid overload CBC, CMP, Mg, Phos D-dimer ordered; if elevated, will order CTA Chest to rule out PE Coags ordered Stool guiac to r/o GI bleed 03/08/18 17:19 -Coags wnl -labs notable for Hgb 7.3, as per Physician covering for PMD (Dr. Dickinson), his Hgb was 5 at dialysis yesterday, so appropriate response s/p 2 units pRBCs -BNP 4000 -K elevated at 5.5, but no chest pain, no acute ST-elevations/depressions on EKG , pending dialysis at [facility], no need for kayexelate at this time -Stool Guiac positive on both slots on card -Trop 0.03, likely renal leak -Case discussed between Emergency department attending and Physicians covering for primary industrial services worker at [place] and [facility], both agree with transfer to [facility] for admission in setting of needed HD -Loss sufficient peripheral access for IV contrast, unable to re-obtain despite repeated attempts, so will obtain V/Q scan instead -Emergency department to Emergency department transfer pending results of V/Q scan, will sign out to oncoming attending. 03/08/18 19:05 ED attending endorsed case to oncoming ED Physician, Dr. Fermin Patient seen, reviewed, and discussed with attending, Dr. Vaughn Reassessment Condition: Re-examined, Unchanged - Lab Interpretations Lab Results: 03/08/18 15:00 03/08/18 15:00 Lab Results 03/08/18 15:00: Sodium 132, Potassium 5.5 H, Chloride 91 L, Carbon Dioxide 27, Anion Gap 19, BUN 54 H, Creatinine 5.4 H, Est GFR ( Amer) 13, Est GFR ( Non-Af Amer) 10, Random Glucose 118 H, Calcium 8.2 L, Magnesium 2.2, Total Bilirubin 0.3, AST 44, ALT 41, Alkaline Phosphatase 86, Lactate Dehydrogenase 616, Total Creatine Kinase 39, Troponin I 0.03, NT-Pro-B Natriuret Pep 4000 H, Total Protein 6.2, Albumin 3.2, Globulin 3.0, Albumin/Globulin Ratio 1.1 03/08/18 15:00: PT 12.1, INR 1.06, APTT 34.9, D-Dimer, Quantitative 581 H 03/08/18 15:00: WBC 5.0, RBC 2.55 L, Hgb 7.3 L, Hct 21.8 L, MCV 85.5, MCH 28.6, MCHC 33.5, RDW 16.4 H, Plt Count 74 L, MPV 10.4, Gran % 51.1, Lymph % (Auto) 14.1 L, [place] % (Auto) 34.6 H, Eos % (Auto) 0.0 L, Baso % (Auto) 0.2, Gran # 2.54 , Lymph # (Auto) 0.7 L, [place] # (Auto) 1.7 H, Eos # (Auto) 0.0, Baso # (Auto) 0.01, Neutrophils % (Manual) 53, Lymphocytes % (Manual) 24, Monocytes % (Manual ) 23 H, Platelet Evaluation Low - RAD Interpretation Radiology Orders: 03/08/18 14:48 CHEST PORTABLE [RAD] Stat 03/08/18 18:08 LUNG PERF & VENT SCAN [NM] Stat - Medication Orders Current Medication Orders: Pantoprazole Sodium (Protonix 40mg Ivpb) 40 mg in 100 mls @ 20 mls/hr IVPB .Q5H SEAMUS Discontinued Medications Pantoprazole Sodium (Protonix Inj) 40 mg IVP STAT STA Stop: 03/08/18 18:07 Disposition/Present on Arrival - Present on Arrival Any Indicators Present on Arrival: Yes History of DVT/PE: No History of Uncontrolled Diabetes: No Urinary Catheter: Yes History Surgical Site Infection Following: None - Disposition Have Diagnosis and Disposition been Completed?: Yes Diagnosis: GI bleed, Myeloma kidney disease, Fluid overload, Acute renal failure on dialysis Disposition Time: 19:07 Patient Plan: Other (Transferred case to [facility] Emergency department attending , Dr. Fermin, pending V/q scan results, then transfer to [facility]) Patient Problems: Current Active Problems Problem Status Onset Acute renal failure on dialysis Acute Fluid overload Acute GI bleed Acute Myeloma kidney Acute Condition: GUARDED Forms: [employer] (Kazakh)
--- NOTE | 2018-03-08 15:45 | RAD ---
HISTORY: Shortness of breath COMPARISON: 01/15/2018 FINDINGS: LUNGS: No active pulmonary disease. PLEURA: No significant pleural effusion identified, no pneumothorax apparent. CARDIOVASCULAR: Cardiomegaly. No evidence of acute, significant cardiovascular disease. Venous access catheter in satisfactory position. This represents a new finding compared to the prior study OSSEOUS STRUCTURES: No significant abnormalities. VISUALIZED UPPER ABDOMEN: Normal. OTHER FINDINGS: None. IMPRESSION: No active disease. No significant interval change compared to the prior examination(s).
[2018-03-08 15:53] LABS: BASO # 0.01 K/mm3 (0.0-2.0); BASO % 0.2 % (0.0-3.0); GRAN # 2.54 (1.4-6.5); GRAN % 51.1 % (50.0-68.0); HEMOGLOBIN 7.3 g/dL (14.0-18.0); LYMPH # 0.7 (1.2-3.4); LYMPH % 14.1 % (22.0-35.0); MEAN CELL VOLUME 85.5 fl (80.0-105.0); MEAN CORPUSCULAR HEMOGLOBIN 28.6 pg (25.0-35.0); MEAN CORPUSCULAR HGB CONC 33.5 g/dl (31.0-37.0); MEAN PLATELET VOLUME 10.4 fl (7.0-11.0); MONO # 1.7 (0.1-0.6); MONO % 34.6 % (1.0-6.0); PLATELET COUNT 74 10^3/uL (120.0-450.0); RBC 2.55 10^6/uL (3.5-6.1); RED CELL DISTRIBUTION WIDTH 16.4 % (11.5-14.5)
[2018-03-08 16:03] LABS: PROTHROMBIN TIME 12.1 SECONDS (9.4-12.5)
[2018-03-08 16:04] LABS: INR 1.06 (0.93-1.08); PARTIAL THROMBOPLASTIN TIME 34.9 Seconds (25.1-36.5)
[2018-03-08 16:16] LABS: ALB/GLOB RATIO 1.1 (1.1-1.8); ALBUMIN 3.2 g/dL (3.0-4.8); CALCIUM 8.2 mg/dL (8.4-10.5)
[2018-03-08 16:33] LABS: TROPONIN I 0.03 ng/mL
[2018-03-08 16:42] LABS: LYMPHOCYTE 24 % (22.0-35.0); MONOCYTE 23 % (1.0-6.0); NEUTROPHIL 53 % (50.0-70.0); PLATELET ESTIMATE LOW (NORMAL)
[2018-03-08] MEDS ORDERED: Iodixanol 320 MG/ML 100 ML BOTTLE IV ONE (17:04)
[2018-03-08] MEDS ORDERED: Pantoprazole 40mg/100mL NS 40 MG/100 ML BAG IVPB SCH (18:15)
--- NOTE | 2018-03-08 19:46 | ED PDOC ---
Physical Exam Vital Signs Reviewed: Yes Vital Signs Temp Pulse Resp BP Pulse Ox 03/08/18 23:02 98.2 F 76 14 156/78 H 98 03/08/18 22:51 98.2 F 76 14 156/78 H 98 03/08/18 21:45 74 18 152/68 H 99 03/08/18 19:45 72 16 148/76 99 03/08/18 16:01 18 03/08/18 14:09 97.9 F 73 18 145/58 L 98 Temperature: Afebrile Blood Pressure: Normal Pulse: Regular Respiratory Rate: Normal Appearance: Positive for: Well-Appearing, Non-Toxic, Comfortable Pain Distress: None Mental Status: Positive for: Alert and Oriented X 3 - Systems Exam Head: Present: Atraumatic, Normocephalic Pupils: Present: PERRL Extroacular Muscles: Present: EOMI Conjunctiva: Present: Normal Mouth: Present: Moist Mucous Membranes Neck: Present: Normal Range of Motion Respiratory/Chest: Present: Good Air Exchange, Decreased Breath Sounds, Rales. No: Respiratory Distress, Accessory Muscle Use Cardiovascular: Present: Regular Rate and Rhythm, Normal S1, S2. No: Murmurs Abdomen: No: Tenderness, Distention, Peritoneal Signs Back: Present: Normal Inspection Upper Extremity: Present: Normal Inspection. No: Cyanosis, Edema Lower Extremity: Present: Normal Inspection. No: Edema Neurological: Present: GCS=15, CN II-XII Intact, Speech Normal Skin: Present: Warm, Dry, Normal Color. No: Rashes Psychiatric: Present: Alert, Oriented x 3, Anxious Medical Decision Making ED Course and Treatment: 03/08/18 19:38 Case endorsed to me by Dr. Vaughn, pending V/Q scan and subsequent transfer to [facility] [place] for management of hemodialysis. Pt receives hemodialysis M/W/. Pt presented to emergency department complaining of shortness of breath, whose past medical history was noted. Pt to be cleared for transfer following V/Q scan results. Pt is currently stable with no complaints. Case discussed with Dr. Gonzales (content strategist) by Dr. Vaughn, who accepts transfer to [facility] [place]. Case followed by medical technologist clinical. 03/08/18 21:31 Patient refused V/Q scan and was unable to complete as patient became anxious and short of breath. Patient currently appears anxious and short of breath, for which is placed on NRB O2. Repeat Chest X-ray ordered. Patient denies any associated chest pain but informs he became claustrophobic at the time. 03/08/18 22:29 Repeat Chest X-ray reviewed by radiologist, shows: FINDINGS: Lungs: The right diaphragm is not well defined and may be secondary to consolidation/atelectasis/effusion. Linear opacities may be noted over the left base and may be associated with atelectasis. Mild pulmonary vascular congestion may be noted and somewhat more prominent since prior study. Pleural space: No pneumothorax. Heart: The heart is enlarged. Mediastinum: Unremarkable. Bones/joints: Unremarkable. Tubes, lines and devices: Left jugular dialysis catheter with tip lower SVC is noted. IMPRESSION: Cardiomegaly. Pulmonary vascular congestion. Right basilar consolidation/effusion. Left basilar atelectasis. 03/08/18 22:37 Patient feels fine at present. Patient was seen and examined by the environmental services manager and medical technologist clinical at bedside. Patient is hemodynamically stable at present time and will be transferred to [facility] for further management of hemo dialysis and blood transfusion.Patient refused V/Q scan as he states he is claustrophobic and does not want the scan done. Of note, patient 's d-dimer is only marginally elevated and unchanged from previous. Of note, patient's repeat Chest X-ray shows slightly increased pulmonary congestion. As stated, patient will require hemodialysis. Dr. Gonzales, the content strategist at [facility], had been contacted by previous attendee Dr. Vaughn. Case discussed with Dr. Fox, Emergency department attendee, who is aware and accepts patient to be transferred to [facility] [place] Emergency department. - Lab Interpretations Lab Results: 03/08/18 15:00 03/08/18 15:00 Lab Results 03/08/18 15:00: Sodium 132, Potassium 5.5 H, Chloride 91 L, Carbon Dioxide 27, Anion Gap 19, BUN 54 H, Creatinine 5.4 H, Est GFR ( Amer) 13, Est GFR ( Non-Af Amer) 10, Random Glucose 118 H, Calcium 8.2 L, Magnesium 2.2, Total Bilirubin 0.3, AST 44, ALT 41, Alkaline Phosphatase 86, Lactate Dehydrogenase 616, Total Creatine Kinase 39, Troponin I 0.03, NT-Pro-B Natriuret Pep 4000 H, Total Protein 6.2, Albumin 3.2, Globulin 3.0, Albumin/Globulin Ratio 1.1 03/08/18 15:00: PT 12.1, INR 1.06, APTT 34.9, D-Dimer, Quantitative 581 H 03/08/18 15:00: WBC 5.0, RBC 2.55 L, Hgb 7.3 L, Hct 21.8 L, MCV 85.5, MCH 28.6, MCHC 33.5, RDW 16.4 H, Plt Count 74 L, MPV 10.4, Gran % 51.1, Lymph % (Auto) 14.1 L, [place] % (Auto) 34.6 H, Eos % (Auto) 0.0 L, Baso % (Auto) 0.2, Gran # 2.54 , Lymph # (Auto) 0.7 L, [place] # (Auto) 1.7 H, Eos # (Auto) 0.0, Baso # (Auto) 0.01, Neutrophils % (Manual) 53, Lymphocytes % (Manual) 24, Monocytes % (Manual ) 23 H, Platelet Evaluation Low - RAD Interpretation Radiology Orders: 03/08/18 14:48 CHEST PORTABLE [RAD] Stat 03/08/18 21:29 CHEST PORTABLE [RAD] Stat Brim Presser: Radiologist - Medication Orders Current Medication Orders: Discontinued Medications Pantoprazole Sodium (Protonix 40mg Ivpb) 40 mg in 100 mls @ 20 mls/hr IVPB .Q5H SEAMUS Last Admin: 03/08/18 20:20 Dose: 20 mls/hr eMAR Start Stop Document 03/08/18 20:20 ROSA (Rec: 03/08/18 20:21 ROSA [id number]) Intravenous Solution Start Date 03/08/18 Start Time 20:21 Pantoprazole Sodium (Protonix Inj) 40 mg IVP STAT STA Stop: 03/08/18 18:07 Last Admin: 03/08/18 20:20 Dose: 40 mg IVP Administration Document 03/08/18 20:20 ROSA (Rec: 03/08/18 20:20 ROSA [id number]) Charges for Administration # of IVP Administrations 1 - Scribe Statement The provider has reviewed the documentation as recorded by the Scribwilbert Flores All medical record entries made by the Scribe were at my direction and personally dictated by me. I have reviewed the chart and agree that the record accurately reflects my personal performance of the history, physical exam, medical decision making, and the department course for this patient. I have also personally directed, reviewed, and agree with the discharge instructions and disposition. Disposition/Present on Arrival - Present on Arrival Any Indicators Present on Arrival: No History of DVT/PE: No History of Uncontrolled Diabetes: No Urinary Catheter: Yes History of Decub. Ulcer: No History Surgical Site Infection Following: None - Disposition Have Diagnosis and Disposition been Completed?: Yes Diagnosis: Myeloma kidney disease, Fluid overload, Acute renal failure on dialysis, CHF ( congestive heart failure), Anemia Disposition: Transfer [facility] Disposition Time: 23:00 Condition: STABLE Discharge Instructions (ExitCare): Heart Failure (ED) Forms: [employer] (Gabonese)
--- NOTE | 2018-03-08 22:27 | RAD ---
EXAM: XR Chest, 1 View EXAM DATE/TIME: Exam ordered 03/08/2018 9:29 PM CLINICAL HISTORY: 78 years old, male; Signs and symptoms; Shortness of breath; Additional info: SOB TECHNIQUE: Frontal view of the chest. COMPARISON: DX - CHEST PORTABLE 2018-03-08 14:51 FINDINGS: Lungs: The right diaphragm is not well defined and may be secondary to consolidation/atelectasis/effusion. Linear opacities may be noted over the left base and may be associated with atelectasis. Mild pulmonary vascular congestion may be noted and somewhat more prominent since prior study. Pleural space: No pneumothorax. Heart: The heart is enlarged. Mediastinum: Unremarkable. Bones/joints: Unremarkable. Tubes, lines and devices: Left jugular dialysis catheter with tip lower SVC is noted. IMPRESSION: Cardiomegaly. Pulmonary vascular congestion. Right basilar consolidation/effusion. Left basilar atelectasis.
[2018-03-08 22:52] VITALS: BP 156/78; PULSE 76; TEMP 98.2
[2018-03-08 23:01] VITALS: RESP 14; O2SAT 98
--- NOTE | 2018-03-09 00:12 | CP.PCM.CON ---
<Ivis Parham - Last Filed: 03/09/18 00:22> History of Present Illness - History of Present Illness History of Present Illness: PGY-[address] Dubon ICU consult: SOB Mr Muñoz, 78 M with PMHx liver CA, HTN/HLD, diabetes, hypertension, hypercholesterolemia, hx of liver cancer s/p liver lobectomy, Acute renal failure 2/2 MM now on HD (MWF), chronic back pain 2/2 spinal mets s/p radiation tx, and hx of GI bleed who presents with worsening shortness of breath x2 days. Pt had black stool x 1 day (yesterday), and as per charting from last admission at [facility], became thrombocytopenic (plts 40's-60's) during his last admission and remained so. Per PMD (Dr. Dickinson), his Hgb was 5 at dialysis yesterday and he was transfused 2 units pRBCs during HD yesterday, and only had 1100 cc fluid drawn. Today, pt had more SOB, reporting unable to take more than 4 steps toward bathroom today before vision blacked out, and he had to be helped to place to sit by family. ROS (+) orthopnea, (+) worsening baseline shortness of breath, (+) dyspnea (+) dizziness on exertion. Denies actual syncope, but definite near-syncope, with rapid resolution of vision symptoms after sitting down and catching his breath. (+) no shortness of breath at rest currently, but does report worsening low- back pain at site where he had mets (s/p radiation tx). Denies nausea, emesis, diarrhea. Reports initially able to make some urine after renal failure onset, but is now anuric (has been for several weeks now). In the ED, CXR showed pulmonary vascular congestion, R basilar consolidation/ effusion, L basilar atelectaisis. BP 140s-150s. RR 20s. 98 o NRB. Hb 7.3. D- Dimer 581. ProBNP 4000. PMH: hypertension, hypercholesterolemia Diabetes hx of liver cancer s/p liver lobectomy Acute renal failure 2/2 MM now on HD (MWF) chronic back pain 2/2 spinal mets s/p radiation tx hx of GI bleed Cataracts Hx LIVER MASS-LIVER CA LIVER LOBECTOMY PSH: left chest port-a-cath for HD 2015-surgical intervention at [facility] Family Hx: non-contributory Social Hx: former smoker (quit 2 years ago), social EtOH, denies illicit drug use All: NKDA Med: See MAR Past Patient History - Infectious Disease Hx of Infectious Diseases: None - Past Medical History & Family History Past Medical History?: Yes - Past Social History Smoking Status: Former Smoker - CARDIAC Hx Congestive Heart Failure: Yes - PULMONARY Hx Pneumonia: Yes - NEUROLOGICAL HX Cerebrovascular Accident: Yes - HEENT Hx HEENT Problems: Yes Hx Cataracts: Yes (r eye sx, sched left eye for next month) Other/Comment: wears eyeglasses for reading - RENAL Hx Renal Failure: Yes Other/Comment: Dialysis M/W/F - ENDOCRINE/METABOLIC Hx Diabetes Mellitus Type 2: Yes - HEMATOLOGICAL/ONCOLOGICAL Hx Anemia: Yes - INTEGUMENTARY Hx Dermatological Problems: Yes Other/Comment: BILATERAL LEG EDEMA PITTING +2 MORE TO RIGHT LEG. SCRATCH ACEVEDO TO BACK OF LEG AND UPPER BACK.ITCHY. - MUSCULOSKELETAL/RHEUMATOLOGICAL Hx Back Pain: Yes - GASTROINTESTINAL Hx Gastrointestinal Disorders: Yes (bm x2 watery today/drank juice,GI BLEED, COLON POLYPS.CONSTIPATION) Other/Comment: LIVER MASS-LIVER CA LIVER LOBECTOMY - GENITOURINARY/GYNECOLOGICAL Hx Genitourinary Disorders: No - PSYCHIATRIC Hx Substance Use: No - SURGICAL HISTORY Other/Comment: 2016-surgical intervention at [facility] - ANESTHESIA Hx Anesthesia Reactions: No Hx Malignant Hyperthermia: No Meds Allergies/Adverse Reactions: Allergies Allergy/AdvReac Type Severity Reaction Status Date / Time No Known Allergies Allergy Verified 03/08/18 23:40 Physical Exam - Constitutional Appears: Non-toxic, In Acute Distress - Head Exam Head Exam: ATRAUMATIC, NORMAL INSPECTION, NORMOCEPHALIC - Eye Exam Eye Exam: EOMI, Normal appearance, PERRL. absent: Scleral icterus Pupil Exam: NORMAL ACCOMODATION - ENT Exam ENT Exam: Mucous Membranes Moist - Neck Exam Additional comments: supple - Respiratory Exam Respiratory Exam: Decreased Breath Sounds, Rales, Respiratory Distress. absent : Accessory Muscle Use, Rhonchi, Wheezes - Cardiovascular Exam Cardiovascular Exam: Tachycardia, REGULAR RHYTHM, +S1, +S2 - GI/Abdominal Exam GI & Abdominal Exam: Soft. absent: Distended, Guarding, Tenderness - Extremities Exam Extremities exam: Positive for: pedal edema, pedal pulses present. Negative for : calf tenderness - Back Exam Back exam: absent: CVA tenderness (L), CVA tenderness (R) - Neurological Exam Neurological exam: Alert, Oriented x3 - Skin Skin Exam: Dry, Warm Results - Vital Signs Recent Vital Signs: Last Vital Signs Temp 98.2 F 03/08/18 23:02 Pulse 76 03/08/18 23:02 Resp 14 03/08/18 23:02 BP 156/78 H 03/08/18 23:02 Pulse Ox 98 03/08/18 23:02 - Labs Result Diagrams: 03/08/18 15:00 03/08/18 15:00 Labs: Laboratory Results - last 24 hr 03/08/18 03/08/18 03/08/18 15:00 15:00 15:00 WBC 5.0 RBC 2.55 L Hgb 7.3 L Hct 21.8 L MCV 85.5 MCH 28.6 MCHC 33.5 RDW 16.4 H Plt Count 74 L MPV 10.4 Gran % 51.1 Lymph % (Auto) 14.1 L [place] % (Auto) 34.6 H Eos % (Auto) 0.0 L Baso % (Auto) 0.2 Gran # 2.54 Lymph # (Auto) 0.7 L [place] # (Auto) 1.7 H Eos # (Auto) 0.0 Baso # (Auto) 0.01 Neutrophils % (Manual) 53 Lymphocytes % (Manual) 24 Monocytes % (Manual) 23 H Platelet Evaluation Low PT 12.1 INR 1.06 APTT 34.9 D-Dimer, Quantitative 581 H Sodium 132 Potassium 5.5 H Chloride 91 L Carbon Dioxide 27 Anion Gap 19 BUN 54 H Creatinine 5.4 H Est GFR ( Amer) 13 Est GFR (Non-Af Amer) 10 Random Glucose 118 H Calcium 8.2 L Magnesium 2.2 Total Bilirubin 0.3 AST 44 ALT 41 Alkaline Phosphatase 86 Lactate Dehydrogenase 616 Total Creatine Kinase 39 Troponin I 0.03 NT-Pro-B Natriuret Pep 4000 H Total Protein 6.2 Albumin 3.2 Globulin 3.0 Albumin/Globulin Ratio 1.1 Assessment & Plan - Assessment and Plan (Free Text) Plan: Dyspnea likely secondary to fluid overload, in the setting of symptomatic anemia symptompatic anemia due to GI bleed vs low erythropoietin from kidney failure ESRD on HD, hyperkalemia GI bleed from stool guia Plan -Pt hemodynamically stable -ED to ED transfer to [facility] where hemodialysis is offered for inpatient s/r/d/w Dr. Dubon <Alda Dubon - Last Filed: 03/09/18 00:52> Results - Vital Signs Recent Vital Signs: Last Vital Signs Temp 98.2 F 03/08/18 23:02 Pulse 76 03/08/18 23:02 Resp 14 03/08/18 23:02 BP 156/78 H 03/08/18 23:02 Pulse Ox 98 03/08/18 23:02 - Labs Result Diagrams: 03/08/18 15:00 03/08/18 15:00 Labs: Laboratory Results - last 24 hr 03/08/18 03/08/18 03/08/18 15:00 15:00 15:00 WBC 5.0 RBC 2.55 L Hgb 7.3 L Hct 21.8 L MCV 85.5 MCH 28.6 MCHC 33.5 RDW 16.4 H Plt Count 74 L MPV 10.4 Gran % 51.1 Lymph % (Auto) 14.1 L [place] % (Auto) 34.6 H Eos % (Auto) 0.0 L Baso % (Auto) 0.2 Gran # 2.54 Lymph # (Auto) 0.7 L [place] # (Auto) 1.7 H Eos # (Auto) 0.0 Baso # (Auto) 0.01 Neutrophils % (Manual) 53 Lymphocytes % (Manual) 24 Monocytes % (Manual) 23 H Platelet Evaluation Low PT 12.1 INR 1.06 APTT 34.9 D-Dimer, Quantitative 581 H Sodium 132 Potassium 5.5 H Chloride 91 L Carbon Dioxide 27 Anion Gap 19 BUN 54 H Creatinine 5.4 H Est GFR ( Amer) 13 Est GFR (Non-Af Amer) 10 Random Glucose 118 H Calcium 8.2 L Magnesium 2.2 Total Bilirubin 0.3 AST 44 ALT 41 Alkaline Phosphatase 86 Lactate Dehydrogenase 616 Total Creatine Kinase 39 Troponin I 0.03 NT-Pro-B Natriuret Pep 4000 H Total Protein 6.2 Albumin 3.2 Globulin 3.0 Albumin/Globulin Ratio 1.1 Attending/Attestation - Attestation I have personally seen and examined this patient.: Yes I have fully participated in the care of the patient.: Yes I have reviewed all pertinent clinical information: Yes Notes (Text): 03/09/18 00:52 Patient was seen when he was in bed # 6 in the ER. Agree with consult note.
--- NOTE | 2018-03-09 01:23 | CP.PCM.HP ---
Past Patient History - Infectious Disease Hx of Infectious Diseases: None - Past Medical History & Family History Past Medical History?: Yes - Past Social History Smoking Status: Former Smoker - CARDIAC Hx Congestive Heart Failure: Yes - PULMONARY Hx Pneumonia: Yes - NEUROLOGICAL HX Cerebrovascular Accident: Yes - HEENT Hx HEENT Problems: Yes Hx Cataracts: Yes (r eye sx, sched left eye for next month) Other/Comment: wears eyeglasses for reading - RENAL Hx Renal Failure: Yes Other/Comment: Dialysis M/W/F - ENDOCRINE/METABOLIC Hx Diabetes Mellitus Type 2: Yes - HEMATOLOGICAL/ONCOLOGICAL Hx Anemia: Yes - INTEGUMENTARY Hx Dermatological Problems: Yes Other/Comment: BILATERAL LEG EDEMA PITTING +2 MORE TO RIGHT LEG. SCRATCH ACEVEDO TO BACK OF LEG AND UPPER BACK.ITCHY. - MUSCULOSKELETAL/RHEUMATOLOGICAL Hx Back Pain: Yes - GASTROINTESTINAL Hx Gastrointestinal Disorders: Yes (bm x2 watery today/drank juice,GI BLEED, COLON POLYPS.CONSTIPATION) Other/Comment: LIVER MASS-LIVER CA LIVER LOBECTOMY - GENITOURINARY/GYNECOLOGICAL Hx Genitourinary Disorders: No - PSYCHIATRIC Hx Substance Use: No - SURGICAL HISTORY Other/Comment: 2016-surgical intervention at [facility] - ANESTHESIA Hx Anesthesia Reactions: No Hx Malignant Hyperthermia: No Meds Allergies/Adverse Reactions: Allergies Allergy/AdvReac Type Severity Reaction Status Date / Time No Known Allergies Allergy Verified 03/08/18 23:40 Results - Vital Signs Recent Vital Signs: Last Vital Signs Temp 98.2 F 03/08/18 23:02 Pulse 76 03/08/18 23:02 Resp 14 03/08/18 23:02 BP 156/78 H 03/08/18 23:02 Pulse Ox 98 03/08/18 23:02 - Labs Result Diagrams: 03/08/18 15:00 03/08/18 15:00 Labs: Laboratory Results - last 24 hr 03/08/18 03/08/18 03/08/18 15:00 15:00 15:00 WBC 5.0 RBC 2.55 L Hgb 7.3 L Hct 21.8 L MCV 85.5 MCH 28.6 MCHC 33.5 RDW 16.4 H Plt Count 74 L MPV 10.4 Gran % 51.1 Lymph % (Auto) 14.1 L [place] % (Auto) 34.6 H Eos % (Auto) 0.0 L Baso % (Auto) 0.2 Gran # 2.54 Lymph # (Auto) 0.7 L [place] # (Auto) 1.7 H Eos # (Auto) 0.0 Baso # (Auto) 0.01 Neutrophils % (Manual) 53 Lymphocytes % (Manual) 24 Monocytes % (Manual) 23 H Platelet Evaluation Low PT 12.1 INR 1.06 APTT 34.9 D-Dimer, Quantitative 581 H Sodium 132 Potassium 5.5 H Chloride 91 L Carbon Dioxide 27 Anion Gap 19 BUN 54 H Creatinine 5.4 H Est GFR ( Amer) 13 Est GFR (Non-Af Amer) 10 Random Glucose 118 H Calcium 8.2 L Magnesium 2.2 Total Bilirubin 0.3 AST 44 ALT 41 Alkaline Phosphatase 86 Lactate Dehydrogenase 616 Total Creatine Kinase 39 Troponin I 0.03 NT-Pro-B Natriuret Pep 4000 H Total Protein 6.2 Albumin 3.2 Globulin 3.0 Albumin/Globulin Ratio 1.1
--- NOTE | 2018-03-09 17:07 | CARD ---
APPROVED REPORT EKG Measurement Heart [id number] <Conclusion> Sinus rhythm with premature atrial complexes Septal infarct, age undetermined Abnormal ECG
== END 2018-03-08 23:02 | disposition short-term general hospital (02) ==
LOC: ED 14:00
DX: C90.00 Multiple myeloma not having achieved remission (principal); D64.9 Anemia, unspecified; I50.9 Heart failure, unspecified; N17.9 Acute kidney failure, unspecified; Z99.2 Dependence on renal dialysis; E87.70 Fluid overload, unspecified; E11.9 Type 2 diabetes mellitus without complications; I10 Essential (primary) hypertension; Z87.891 Personal history of nicotine dependence; E78.00 Pure hypercholesterolemia, unspecified
CPT/HCPCS: 71045; 80053; 82550; 83615; 83735; 83880; 84484; 85025; 85378; 85610; 85730; 93005; 96374; 99284; C9113; Q9967